=== PATIENT | female | born 1980 | race Caucasian/White ===

== ENCOUNTER → 2020-09-07 17:13 | Outpatient (CLI) | payer OTHER, SELFPAY ==
--- NOTE | ~2020-09-07 | MM_ITS ---
EXAMINATION: MM screening [facility] BI w davon HISTORY: Screening TECHNIQUE: Craniocaudal and mediolateral oblique 3-D tomosynthesis images were obtained and synthetic 2-D images were generated. CAD analysis was submitted and interpreted. COMPARISON: No prior mammogram is available for comparison at this institution. BREAST PARENCHYMAL COMPOSITION: The breasts are heterogeneously dense, which may obscure small masses . FINDINGS: There is no evidence of suspicious mass, calcification, or architectural distortion to sugg est malignancy in either breast. There has been no suspicious interval change. IMPRESSION: 1. No mammographic evidence of malignancy. 2. Recommend routine screening mammography in one year. BI-RADS Category 1: Negative Reviewed, dictated and finalized at location A. ERING KILN TENDER
== END ==
PROVIDERS: PCP Physician Assistant; Visit Provider Nurse Practitioner
DX: Z12.31 Encounter for screening mammogram for malignant neoplasm of breast (principal)
CPT/HCPCS: 77063; 77067

== ENCOUNTER → 2023-04-25 10:49 | Outpatient (CLI) | payer OTHER, SELFPAY ==
--- NOTE | ~2023-04-25 | US_ITS ---
Limited Abdominal Sonogram: Real-time sonographic imaging of the right upper quadrant was performed. Clinical History: Family history of pancreatic cancer Findings: The liver appears normal with no evidence of mass lesion or bile duct dilatation. Main por gregory vein demonstrates normal direction of flow. The gallbladder is well distended, and appears normal with no evidence of gallstone or wall thickening. The common bile duct measures 2 mm. The visualize d pancreas, aorta, and IVC are unremarkable. Impression: No significant abnormality seen. Reviewed, dictated and finalized at location M. Impression: No significant abnormality seen.
== END ==
PROVIDERS: PCP Physician Assistant; Visit Provider Physician Assistant
DX: Z80.0 Family history of malignant neoplasm of digestive organs (principal)
CPT/HCPCS: 76705

== ENCOUNTER → 2023-06-06 11:31 | Outpatient (CLI) | payer OTHER, SELFPAY ==
--- NOTE | ~2023-06-06 | MM_ITS ---
EXAMINATION: MM screening whitney BI w davon HISTORY: Screening mammogram TECHNIQUE: Craniocaudal and mediolateral oblique 3-D tomosynthesis images were obtained and synthetic 2-D images were generated. Bilateral rotated lateral CC views. CAD analysis was submitted and interp reted. COMPARISON: 09/07/2020 bilateral screening mammogram BREAST PARENCHYMAL COMPOSITION: The breasts are heterogeneously dense, which may obscure small masses . FINDINGS: There is no evidence of suspicious mass, calcification, or architectural distortion to sugg est malignancy in either breast. There has been no suspicious interval change. IMPRESSION: 1. No mammographic evidence of malignancy. 2. Recommend routine screening mammography in one year. BI-RADS Category 1: Negative Reviewed, dictated and finalized at location A.
== END ==
PROVIDERS: PCP Physician Assistant; Visit Provider Advanced Practice Midwife
DX: Z12.31 Encounter for screening mammogram for malignant neoplasm of breast (principal)
CPT/HCPCS: 77063; 77067

== ENCOUNTER 2024-11-23 11:04 | Outpatient (CLI) | payer OTHER, SELFPAY ==
[2024-11-23 11:28] LABS: Basophils Percent Auto 0.8 % (0.2-1.2); Eosinophils Absolute Auto 0.1 K/mm3 (0-0.3); Eosinophils Percent Auto 3.7 % (0-4.4); Hematocrit 38.7 % (37.0-47.0); Hemoglobin 13.1 g/dL (12.0-15.0); Immature Granulocyte Absolute 0.01 K/mm3 (0.00-0.031); Immature Granulocyte Percent A 0.3 % (0-0.5); Lymphocytes Absolute Auto 1.32 K/mm3 (0.9-3.2); Lymphocytes Percent Auto 34.6 % (18.3-44.2); Mean Corpuscular HGB Conc 33.9 g/dl (32-36); Mean Corpuscular Hemoglobin 34.7 pg (26-34); Mean Corpuscular Volume 102.4 fl (80-100); Mean Platelet Volume 8.9 fl (7.4-10.4); Monocytes Absolute Auto 0.4 K/mm3 (0.1-0.6); Monocytes Percent Auto 10.2 % (2.6-8.5); Neutrophils Absolute Auto 1.9 K/mm3 (1.3-6.7); Neutrophils Percent Auto 50.4 % (45.5-73.1); Platelet Count Result 200 k/mm3 (150-375); Red Blood Count 3.78 M/mm3 (4.2-5.4); Red Cell Distribution Width 11.8 % (11.5-14.5); White Blood Count 3.8 K/mm3 (4.5-10.0)
--- OUTSIDE RECORDS SUMMARY | 2024-11-23 12:51 | XMS_ITS | Patient Health Record ---
Author Organization [facility] Address [address] [place] [address] Support Name Relationship Address Phone Pam Sue Guarantor Unknown [phone] Allergies No Known Allergies Reason For Referral No Information Medications Medication SIG (Take, Route, Frequency, Duration) Notes Start Date End Date Status Julia-D Allergy & Congestion 180-240 MG 1 Two Times A Day Oral 05/28/2008 Active Flonase Allergy Relief 50 MCG/ACT 2 sprays each nostril q day Nasal 05/28/2008 Active Ortho-Novum (28) as directed *Reorder from [facility]orrow[facility] for eRx and Interaction Alerts* 08/11/2008 Active Differin 0.1 % apply q day External 02/13/2007 Active Calcium 600 High Potency 600 MG 1 Two Times A Day Oral 02/13/2006 Active Clindamycin Phosphate 1 % Apply BID External 02/13/2007 Active Mounika 28 3-0.03 MG As Directed Oral 12/05/2005 Active Diflucan 150 MG 1 Every Morning Oral 02/19/2006 Active Plan Of Treatment No Information Insurance Providers Payer Name Payer Address Payer Phone Subscriber Number Group Number Insured Name Patient Relationship to Insured Coverage Start Date Coverage End Date [facility] [address] [place] [address] [id number] Pam Sue Self - patient is the insured 1
--- OUTSIDE RECORDS SUMMARY | 2024-11-23 12:51 | XMS_ITS | Clinical Summary ---
Author Organization [facility] [address]22 Address [address] [place] [address] Phone Care Team Providers Care Assembler [employer] Name Role Phone John Jansen MD Primary Care Provider [phone] Allergies No known active allergies Medications spironolactone (ALDACTONE) 100 mg tablet Take 100 mg by mouth daily. Active Active Problems No known active problems Encounters Date Type Department Care Team Description 11/23/2024 10:30 AM COTTON SAMPLER Office Visit [facility] Oncology and Hematology - [address] [place] [address] Kwaku Sidhu MD Leukopenia, unspecified type (Primary Dx); Chronic anemia from Last 3 Months Family History Medical History Relation Name Comments No Known Problems Brother No Known Problems Child 1 No Known Problems Child 2 No Known Problems Child 3 No Known Problems Father No Known Problems Mother No Known Problems Sister 1 No Known Problems Sister 2 No Known Problems Sister 3 Relation Name Status Comments Brother Child 1 Alive Child 2 Alive Child 3 Alive Father Alive Mother Alive Sister 1 Alive Sister 2 Alive Sister 3 Alive Social History Tobacco Use Types Packs/Day Years Used Date Smoking Tobacco: Never Smokeless Tobacco: Never Alcohol Use Standard Drinks/Week Comments Yes 0 (1 standard drink = 0.6 oz pur e alcohol) Occasionally Comments Unknown Sex and Gender Information Value Date Recorded Sex Assigned at Not on file Legal Sex Female 6:10 AM COTTON SAMPLER Gender Identity Not on file Sexual Orientation Not on file Last Filed Vital Signs Vital Sign Reading Time Taken Comments Blood Pressure 100/61 11/23/2024 10:10 AM COTTON SAMPLER Pulse 79 11/23/2024 10:10 AM COTTON SAMPLER Temperature 36.6 C (97.9 F) 11/23/2024 10:10 AM COTTON SAMPLER Respiratory Rate 17 11/23/2024 10:1 0 AM COTTON SAMPLER Oxygen Saturation 98% 11/23/2024 10: 10 AM COTTON SAMPLER Inhaled Oxygen Concentration - - Weight 66.6 kg (146 lb 12.8 oz) 025 10:10 AM COTTON SAMPLER Height 177.8 cm (5' 10 ) 11/23/2024 10: 10 AM COTTON SAMPLER Body Mass Index 21.06 11/23/2024 10:10 AM COTTON SAMPLER Plan of Treatment Upcoming Encounters Date Type Department Care Team (Late st Contact Info) Description 12/14/2024 1:00 PM CDT Office Visit [facility] Oncology and Hematology [facility] [address] [facility] [address] [place] [address] Kwaku Sidhu MD [address] [facility] [address] [place] [address] Health Maintenance Due Date Last Done Comments DTAP/TDAP/TD VACCINES (1 - Tdap) 1998 HEPATITIS B VACCINES (1 of 3 - 19+ 3-dose series) 1998 CERVICAL CANCER SCREENING 2009 BREAST CANCER SCREENING 2019 COLORECTAL SCREENING 01/04/2024 Colorectal Cancer Screening 01/04/2024 FIT-DNA Q 3 years 01/04/2024 FIT/FOBT Q 1 year 01/04/2024 Flex Sig/CT Colonography Q 5 years 01/04/2024 INFLUENZA VACCINE (#1) 2024 Preventative Visit- Commercial 09/30/2024 HPV VACCINES Aged Out No longer eligi ble based on patient's age to complete this topic Insurance [facility] [id number] Member Subscriber Plan / Payer (Ef fective 2022-Present) Name:ADITYA SUE Relation to Subscriber:Spouse Name:Mohamud Sue Date of :1976 (Home) [phone] (Work) Address: [address] [place] [id number] Payer ID:[id number] (NAIC) Type:HMO Address: [facility] [address] [place] [address] Care Teams Assembler [employer] Relationship Specialty Start Date End Date John Jansen MD [address] [place] [id number] PCP - General Family Practice 05/09/12
--- OUTSIDE RECORDS SUMMARY | 2024-11-23 12:51 | XMS_ITS | Data Portability ---
Author Organization [facility] Address [address] [facility] [facility] [place] [address] Care Team Providers Care Director Of Sports Performance Name Role Phone CHEIKH PICKETT Primary Care Provider Unavailab le Assessment No assessment recorded. Plan of Treatment Reminders Order Date Submit Date Provider Last Modified By Organization Details Last Modified Time Details Appointments ANNUAL 30 2024 09:00A M ELISHA Mccallum Not available Not available Not available Lab TSH + free T4, serum 2023 024 TROY [facility], [address], [place], [address], 08/18/2024 10:14:46 lipid panel, serum 2023 024 TROY Nguyen, [address], [place], [address], 08/18/2024 10:14:44 CMP, serum or plasma 2023 024 ELSA Nguyen, [address], [place], [address], 08/18/2024 10:14:47 CBC w/ auto diff 2023 024 TROY Kai, [address], [place], [address], 08/18/2024 10:14:49 noninvasi ve colorecta l cancer DNA + occult blood screening , QL, stool 2023 024 TROY [facility] (Cologuard Orders Only), [address], [address], [place], [address], 07/09/2024 21:56:55 HbA1c (hemoglob in A1c), blood 2023 024 TROY [facility], [address], [place], [address], 08/18/2024 10:14:48 Referral None recorded. Procedures None recorded. Surgeries None recorded. Imaging MAMMO, screening , digital, bilateral [facility] [address], [place], [address], 10/07/2024 12:31:25 Medication Orders None recorded. Patient TargetsNo targets recorded. Patient InstructionsNo instructions recorded. Reason for Referral None Reported. Results Created Date Observation Date Name Description Value Unit Range Abnormal Flag Note LastModifiedBy Organization Detail LastModifiedTime 07/06/20 24 07/06/2024 COLOG UARD cologuard result reportable NEGATI VE negati ve normal NEGAT FRED TEST RESUL T. A negat fred Colog uard resul t indic ates a low likel ihood that a color ectal cance r (CRC) or advan ezequiel adeno ma (estrellita omato us polyp s with more advan ezequiel pre-m align ant featu res) is prese nt. The chanc e that a perso n with a negat fred Colog uard test has a color ectal cance r is less than 1 in 1500 (nega tive predi ctive value >99.9 %) or has an advan ezequiel adeno ma is less than 5.3% (nega tive predi ctive value 94.7% ). These data are based on a prosp ectiv e cross -sect ional study of 00 0 indiv idual s at [facility] risk for color ectal cance r who were scree artemio with both Colog uard and colon oscop y. (Saw Thorne et al, N Engl J Med 2014; 370(1 4):12 86-12 97) The rosio l value (refe rence range ) for this assay is negat fred. COLOG UARD RE-SC REEGABRIEL [place] RECOM MENDA TION: Perio dic color ectal cance r scree andre is an impor tant part of preve ntive healt hcare for asymp tomat ic indiv idual s at [facility] risk for color ectal cance r. Follo wing a negat fred Colog uard resul t, the Ameri can Cance r Socie ty and U.S. Multi -Soci ety Task Force scree andre guide lines recom mend a Colog uard re-sc reeni ng inter marco of 3 years . Refer ences : Ameri can Cance r Socie ty Guide line for Color ectal Cance r Scree andre: https ://niranjan w.can cer.o rg/ca ncer/ colon -rect al-ca ncer/ detec tion- diagn osis- stagi ng/ac s-rec ommen datio ns.ht ml.; Ramirez DK, Dwight ivy CR, Agustín avina JK, Color ectal Cance r Scree andre: Recom menda tions for Physi cians and Patie nts from the U.S. Multi -Soci ety Task Force on Color ectal Cance r Scree andre , Am Ivy buenrostro y 2017; 112:1 016-1 030. TEST DESCR IPTIO N: [place] site algor ithmi c srinivas sis of stool DNA-b iomar kers with hemog lobin immun oassa y. Quant itati ve value s of indiv idual bioma rkers are not repor table and are not assoc iated with indiv idual bioma rker resul t refer ence range s. Colog uard is inten ded for color ectal cance r scree andre of adult s of eithe r sex, 45 years or older , who are at [facility] for color ectal cance r (CRC) . Colog uard has been appro carly for use by the U.S. FDA. The perfo rmanc e of Colog uard was estab lishe d in a cross secti onal study of avera ge-ri sk adult s aged 50-84 . Colog uard perfo rmanc e in patie nts ages 45 to 49 years was estim ated by kraig-g wayne srinivas sis of near- age group s. Colon oscop ies perfo rmed for a posit fred resul t may find as the most clini tony signi fican t lesio n: color ectal cance r [4.0% ], advan ezequiel adeno ma (incl uding sessi le [place] polyp s great er than or equal to 1cm diame ter) [20%] or non- advan ezequiel adeno ma [31%] ; or no color ectal neopl raffaele [45%] . These estim ates are deriv ed from a prosp ectiv e cross -sect ional scree andre study of 0 indiv idual s at [facility] risk for color ectal cance r who were scree artemio with both Colog uard and colon oscop y. (Saw Thorne et al, N Engl J Med 2014; 370(1 4):12 86-12 97.) Colog uard may produ ce a false negat fred or false posit fred resul t (no color ectal cance r or preca ncero us polyp prese nt at colon oscop y follo w up). A negat fred Colog uard test resul t does not guara ntee the absen ce of CRC or advan ezequiel adeno ma (pre- cance r). The curre nt Colog uard scree andre inter marco is every 3 years . (Amer ican Cance r Socie ty and U.S. Multi -Soci ety Task Force ). Colog uard perfo rmanc e data in a 0 patie nt pivot al study using colon oscop y as the refer ence metho d can be acces sed at the follo wing locat ion: www.e xactl abs.c om/re sults . Addit ional descr iptio n of the Colog uard test proce ss, warni ngs and preca ution s can be found at www.c wagner maria luisa.c om. Not Available [facility] (Cologuard Orders Only) [address], [place], [address], 07/09/2024 21:56:55 08/17/20 24 08/18/2024 LIPID PANEL W/ CHOL/ HDL RATIO cholesterol, total 194 mg/dL 100-19 9 Not Available [facility] ([facility]) [address], [place], [address], 08/18/2024 10:14:44 08/17/20 24 08/18/2024 LIPID PANEL W/ CHOL/ HDL RATIO triglyceride s 46 mg/dL 0-149 Not Available [facility] ([facility]) [address], [place], [address], 08/18/2024 10:14:44 08/17/20 24 08/18/2024 LIPID PANEL W/ CHOL/ HDL RATIO HDL cholesterol 115 mg/dL >39 Not Available [facility] ([facility]) [address] [facility] [address], [place], [address], 08/18/2024 10:14:44 08/17/20 24 08/18/2024 LIPID PANEL W/ CHOL/ HDL RATIO VLDL cholesterol kassandra 9 mg/dL 5-40 Not Available [facility] ([facility]) [address], [place], [address], 08/18/2024 10:14:44 08/17/20 24 08/18/2024 LIPID PANEL W/ CHOL/ HDL RATIO LDL chol calc (rust) 70 mg/dL 0-99 Not Available [facility] ([facility]) [address] [place], [address], 08/18/2024 10:14:44 08/17/20 24 08/18/2024 LIPID PANEL W/ CHOL/ HDL RATIO T. chol/HDL ratio 1.7 ratio 0.0-4. 4 T. Chol/ HDL Ratio Men Women 1/2 Avg.R isk 3.4 3.3 Avg.R isk 5.0 4.4 2X Avg.R isk 9.6 7.1 3X Avg.R isk 23.4 11.0 Not Available [facility] ([facility]) [address], [place], [address], 08/18/2024 10:14:44 08/17/20 24 08/18/2024 TSH+F REE T4 TSH 1.980 uIU/m L 0.450- 4.500 Not Available [facility] ([facility]) [address] [place], [address], 08/18/2024 10:14:45 08/17/20 24 08/18/2024 TSH+F REE T4 T4,free(dire ct) 1.05 NG/dL 0.82-1 .77 Not Available [facility] ([facility]) [address], [place], [address], 08/18/2024 10:14:45 08/17/20 24 08/18/2024 COMP. METAB OLIC PANEL (14) glucose 97 mg/dL 70-99 Not Available [facility] ([facility]) [address] [place], [address], 08/18/2024 10:14:47 08/17/20 24 08/18/2024 COMP. METAB OLIC PANEL (14) BUN 15 mg/dL 6-24 Not Available [facility] ([facility]) [address] [place], [address], 08/18/2024 10:14:47 08/17/20 24 08/18/2024 COMP. METAB OLIC PANEL (14) creatinine 0.83 mg/dL 0.57-1 .00 Not Available [facility] ([facility]) [address] [place], [address], 08/18/2024 10:14:47 08/17/20 24 08/18/2024 COMP. METAB OLIC PANEL (14) eGFR 89 mL/mi n/1.7 3 >59 Not Available [facility] ([facility]) [address] [facility] [address], [place], [address], 08/18/2024 10:14:47 08/17/20 24 08/18/2024 COMP. METAB OLIC PANEL (14) BUN/creatini ne ratio 18 9-23 Not Available [facility] ([facility]) [address], [place], [address], 08/18/2024 10:14:47 08/17/20 24 08/18/2024 COMP. METAB OLIC PANEL (14) sodium 139 mmol/ L 134-14 4 Not Available [facility] ([facility]) [address] [facility] [address], [place], [address], 08/18/2024 10:14:47 08/17/20 24 08/18/2024 COMP. METAB OLIC PANEL (14) potassium 4.9 mmol/ L 3.5-5. 2 Not Available [facility] ([facility]) [address] [facility] [address], [place], [address], 08/18/2024 10:14:47 08/17/20 24 08/18/2024 COMP. METAB OLIC PANEL (14) chloride 103 mmol/ L 96-106 Not Available [facility] ([facility]) [address], [place], [address], 08/18/2024 10:14:47 08/17/20 24 08/18/2024 COMP. METAB OLIC PANEL (14) carbon dioxide, total 23 mmol/ L 20-29 Not Available [facility] ([facility]) [address], [place], [address], 08/18/2024 10:14:47 08/17/20 24 08/18/2024 COMP. METAB OLIC PANEL (14) calcium 8.8 mg/dL 8.7-10 .2 Not Available [facility] ([facility]) [address], [place], [address], 08/18/2024 10:14:47 08/17/20 24 08/18/2024 COMP. METAB OLIC PANEL (14) protein, total 6.5 g/dL 6.0-8. 5 Not Available [facility] ([facility]) [address], [place], [address], 08/18/2024 10:14:47 08/17/20 24 08/18/2024 COMP. METAB OLIC PANEL (14) albumin 4.2 g/dL 3.9-4. 9 Not Available [facility] ([facility]) [address] [facility] [address], [place], [address], 08/18/2024 10:14:47 08/17/20 24 08/18/2024 COMP. METAB OLIC PANEL (14) globulin, total 2.3 g/dL 1.5-4. 5 Not Available [facility] ([facility]) [address] [facility] [address], [place], [address], 08/18/2024 10:14:47 08/17/20 24 08/18/2024 COMP. METAB OLIC PANEL (14) bilirubin, total 0.4 mg/dL 0.0-1. 2 Not Available [facility] ([facility]) [address] [facility] [address], [place], [address], 08/18/2024 10:14:47 08/17/20 24 08/18/2024 COMP. METAB OLIC PANEL (14) alkaline phosphatase 67 IU/L 44-121 Not Available [facility] ([facility]) [address] [facility] [address], [place], [address], 08/18/2024 10:14:47 08/17/20 24 08/18/2024 COMP. METAB OLIC PANEL (14) AST (SGOT) 16 IU/L 0-40 Not Available [facility] ([facility]) [address], [place], [address], 08/18/2024 10:14:47 08/17/20 24 08/18/2024 COMP. METAB OLIC PANEL (14) ALT (SGPT) 11 IU/L 0-32 Not Available [facility] ([facility]) [address] [place], [address], 08/18/2024 10:14:47 08/17/20 24 08/18/2024 HEMOG LOBIN A1C hemoglobin A1C 5.1 % 4.8-5. 6 Predi abete s: 5.7 - 6.4 Diabe angeles: >6.4 Glyce benjamín contr ol for adult s with diabe angeles: <7.0 Not Available [facility] ([facility]) [address] [place], [address], 08/18/2024 10:14:48 08/17/20 24 08/18/2024 CBC WITH DIFFE RENTI AL/PL ATELE T WBC 2.9 x10e3 /uL 3.4-10 .8 below low normal Not Available [facility] ([facility]) [address] [place], [address], 08/18/2024 10:14:49 08/17/20 24 08/18/2024 CBC WITH DIFFE RENTI AL/PL ATELE T RBC 3.62 x10e6 /uL 3.77-5 .28 below low normal Not Available [facility] ([facility]) [address] [place], [address], 08/18/2024 10:14:49 08/17/20 24 08/18/2024 CBC WITH DIFFE RENTI AL/PL ATELE T hemoglobin 12.5 g/dL 11.1-1 5.9 Not Available [facility] ([facility]) [address] [place], [address], 08/18/2024 10:14:49 08/17/20 24 08/18/2024 CBC WITH DIFFE RENTI AL/PL ATELE T hematocrit 37.8 % 34.0-4 6.6 Not Available [facility] ([facility]) [address] [facility] [address], [place], [address], 08/18/2024 10:14:49 08/17/20 24 08/18/2024 CBC WITH DIFFE RENTI AL/PL ATELE T MCV 104 fL 79-97 above high normal Not Available [facility] ([facility]) [address] [facility] [address], [place], [address], 08/18/2024 10:14:49 08/17/20 24 08/18/2024 CBC WITH DIFFE RENTI AL/PL ATELE T MCH 34.5 pg 26.6-3 3.0 above high normal Not Available [facility] ([facility]) [address] [place], [address], 08/18/2024 10:14:49 08/17/20 24 08/18/2024 CBC WITH DIFFE RENTI AL/PL ATELE T MCHC 33.1 g/dL 31.5-3 5.7 Not Available [facility] ([facility]) [address] [place], [address], 08/18/2024 10:14:49 08/17/20 24 08/18/2024 CBC WITH DIFFE RENTI AL/PL ATELE T RDW 11.2 % 11.7-1 5.4 below low normal Not Available [facility] ([facility]) [address] [place], [address], 08/18/2024 10:14:49 08/17/20 24 08/18/2024 CBC WITH DIFFE RENTI AL/PL ATELE T platelets 195 x10e3 /uL 150-45 0 Not Available [facility] ([facility]) [address] [place], [address], 08/18/2024 10:14:49 08/17/20 24 08/18/2024 CBC WITH DIFFE RENTI AL/PL ATELE T neutrophils 39 % notest ab. Not Available [facility] ([facility]) [address] [place], [address], 08/18/2024 10:14:49 08/17/20 24 08/18/2024 CBC WITH DIFFE RENTI AL/PL ATELE T lymphs 48 % notest ab. Not Available [facility] ([facility]) [address] [facility] [address], [place], [address], 08/18/2024 10:14:49 08/17/20 24 08/18/2024 CBC WITH DIFFE RENTI AL/PL ATELE T monocytes 10 % notest ab. Not Available [facility] ([facility]) [address] [facility] [address], [place], [address], 08/18/2024 10:14:49 08/17/20 24 08/18/2024 CBC WITH DIFFE RENTI AL/PL ATELE T eos 2 % notest ab. Not Available [facility] ([facility]) [address] [facility] [address], [place], [address], 08/18/2024 10:14:49 08/17/20 24 08/18/2024 CBC WITH DIFFE RENTI AL/PL ATELE T basos 1 % notest ab. Not Available [facility] ([facility]) [address] [facility] [address], [place], [address], 08/18/2024 10:14:49 08/17/20 24 08/18/2024 CBC WITH DIFFE RENTI AL/PL ATELE T neutrophils (absolute) 1.1 x10e3 /uL 1.4-7. 0 below low normal Not Available [facility] ([facility]) [address] [place], [address], 08/18/2024 10:14:49 08/17/20 24 08/18/2024 CBC WITH DIFFE RENTI AL/PL ATELE T lymphs (absolute) 1.4 x10e3 /uL 0.7-3. 1 Not Available [facility] ([facility]) [address] [place], [address], 08/18/2024 10:14:49 08/17/20 24 08/18/2024 CBC WITH DIFFE RENTI AL/PL ATELE T monocytes(ab solute) 0.3 x10e3 /uL 0.1-0. 9 Not Available [facility] ([facility]) [address] [facility] [address], [place], [address], 08/18/2024 10:14:49 08/17/20 24 08/18/2024 CBC WITH DIFFE RENTI AL/PL ATELE T eos (absolute) 0.1 x10e3 /uL 0.0-0. 4 Not Available [facility] ([facility]) [address] [place], [address], 08/18/2024 10:14:49 08/17/20 24 08/18/2024 CBC WITH DIFFE RENTI AL/PL ATELE T baso (absolute) 0.0 x10e3 /uL 0.0-0. 2 Not Available [facility] ([facility]) [address], [place], [address], 08/18/2024 10:14:49 08/17/20 24 08/18/2024 CBC WITH DIFFE RENTI AL/PL ATELE T immature granulocytes 0 % notest ab. Not Available [facility] ([facility]) [address], [place], [address], 08/18/2024 10:14:49 08/17/20 24 08/18/2024 CBC WITH DIFFE RENTI AL/PL ATELE T immature grans (abs) 0.0 x10e3 /uL 0.0-0. 1 Not Available [facility] ([facility]) [address] [place], [address], 08/18/2024 10:14:49 Result Notes None recorded. Problems Name Problem SNOMED Code Status Onset Date Resolution Date Notes Provider Name and Address Organization Details Recorded Time Body mass index 20-24 - normal 806205211 Active 024 GURJIT Jeong, [facility] 06/11/2024 09:47:15 Problem Notes None recorded. Medical Equipment None Reported. Allergies No known drug allergies Medications Name Sig Start Date Stop Date Status Note LastModified by Organization Details LastModified Time ketoconazol e 2 % shampoo WASH SCALP THREE TIMES A WEEK active Not Available Not Available No t Available spironolact one 100 mg tablet TAKE 1 TABLET BY MOUTH DAILY active face- derm Not Available Not Available Not Available oseltamivir 75 mg capsule TAKE 1 CAPSULE BY MOUTH TWICE DAILY FOR 5 DAYS 06/11 completed Not Available Not Available Not Available ondansetron 4 mg disintegrat ing tablet DISSOLVE 1 TABLET ON THE TONGUE EVERY 6 HOURS NEEDED 06/11 completed Not Available Not Available Not Available Mirena active Not Available Not Availa ble Not Available Vitals Date Recorded Body height Respiratory rate Body mass index (BMI) Body weight Oxygen saturation Oxygen saturation in Arterial blood by Pulse oximetry Heart rate Systolic blood pressure Diastolic blood pressure Provider Name and Address Organization Details Last Updated DateTime 176.28 cm 18 /min 20.4 kg/m2 15537.9 3 g 98 % 98 % 63 /min 108 mm[Hg] 78 mm[Hg] Meme Zambrano MA [facility] 09:48:43 Date Recorded Systolic blood pressure Diastolic blood pressure Provider Name and Address Organization Details Last Updated DateTime 06/11/2024 110 mm[Hg] 80 mm[Hg] ELISHA Mccallum Attn: Accounting,[address] [place], [address], [facility] 06/11/2024 10:09:46 Social History Question Answer Notes LastModified by Organizat ion Details LastModified Time Tobacco Smoking Status Never Smoker GURJIT Jeong, [facility] 06/11/2024 09:46:07 Do You Have An Advance Directive? Yes Information not available 06/11/2024 What Is Your Level Of Alcohol Consumption? Occasional Information not available 06/11/2024 Are You Blind Or Do You Have Difficulty Seeing? No Contacts Information not available 06/11/2024 What Is Your Level Of Caffeine Consumption? Occasional Coffee Information not available 06/11/2024 In The 14 Days Before Symptom Onset, Have You Had Close Contact With A Laboratory-confir med COVID-19 While That Case Was Ill? No Information not available 06/11/2024 In The 14 Days Before Symptom Onset, Have You Had Close Contact With A Person Who Is Under Investigation For COVID-19 While That Person Was Ill? No Information not available 06/11/2024 Have You Been To An Area Known To Be High Risk For COVID-19? No Information not available 06/11/2024 Are You Deaf Or Do You Have Serious Difficulty Hearing? No Information not available 06/11/2024 What Type Of Diet Are You Following? REGULAR Information not available 06/11/2024 Are There Any Guns Present In Your Home? No Information not available 06/11/2024 What Was The Date Of Your Most Recent Tobacco Screening? 06/11/2024 Information not available 06/11/2024 What Is Your Relationship Status? Information not available 06/11/2024 Do You Use Your Seat Belt Or Car Seat Routinely? Yes Information not available 06/11/2024 Do You Have Smoke And Carbon Monoxide Detectors In Your Home? Yes Information not available 06/11/2024 Do You Use Any Illicit Or Recreational Drugs? No Information not available 06/11/2024 Do You Use Sunscreen Routinely? Yes Information not available 06/11/2024 Has Tobacco Cessation Counseling Been Provided? No Information not available 06/11/2024 Do You Or Have You Ever Used Any Other Forms Of Tobacco Or Nicotine? No Information not available 06/11/2024 Sex: Female Functional Status Question Answer Note LastModified by Organizat ion Details LastModified Time Are you able to care for yourself? Yes Information not available 06/11/2024 What is your exercise level? Occasional 3x a week Information not available 06/11/2024 Mental Status None recorded. Family History Relationship Description Onset Age of this Age Resolved Age Notes LastModified by Organization Details LastModified Time Mother Asthma tcarterma Not available 06/11/2024 09:55:36 Mother Heart disease tcarterma Not available 2023 09:55:41 Brother Asthma tcarterma Not available 06/11/2024 09:55:36 Notes:Dna sister- pancreatic cancer Medical History Condition Response Coronary Artery Disease N Other N Atrial Fibrillation N High Blood Pressure N Depression N COPD N Blood Clots N Anxiety Disorder N Muscle, Joint, or Bone Problems N Acid Reflux (GERD) N Cancer N Stroke N High Cholesterol N Liver Disease N Headaches N Kidney or Bladder Problems N Thyroid Problems N GI Problems N Have you had a mammogram in the last yea r? N Skin Problems N Anemia N Heart Attack ([place]) N Diabetes N Seizures/Epilepsy N Have you had a colonoscopy in the last 1 0 years? N Asthma N Allergies N Have you had a PSA blood test in the las t year? N Hepatitis N Heart Failure N Osteoporosis N Past Encounters Encounter ID Performer Location Encounter Start Date Encounter Closed Date Diagnosis/Indication Diagnosis SNOMED-CT Code Diagnosis ICD10 Code Diagnosis Note [id number] ELISHA Mccallum [facility] [address] [place] [address] 06/11/2024 09:32:22 06/11/2024 10:53:45 Body mass index 20-24 - normal 350007638 Z68.20 BMI is 20.4 Adult heal th examination 492406277 Z00.00 Annual wellness exam completed with fasting labs ordered. Cholesterol screening 27 0183809 Z13.220 Fasting lipid panel is due Diabetes m ellitus screening 543952254 Z13.1 Annual A1c screening ordered Thyroid di sorder screening 906266775 Z13.29 Routine thyroid testing ordered Screening mammography 24 182978 Z12.31 Annual mammogram is due Screening for malignant neoplasm of colon 076142020 Z12.11 Patient opts for Cologuard screening method Health Concerns Section Related Observation LastModified by Organization Detai ls LastModified Time None Recorded Concern Status LastModified by Organization Details LastModified Time None Recorded Advance Directives Directive Y: Payers Encounter Date Sequence Insurance Name Policy Number Policy Peña Covered Member ID Peña Member ID Guarantor Name 06/11/2024 1 [facility] Mohamud Sue [id number] Pam Sue Notes Date Note Type Note Provider Name and Address Organization Details Recorded Time 06/11/2024 text/html Patient is here for annual wellness exam and routine labs. She has no new complaints or concerns. ELISHA Mccallum Attn: Accounting,[address] [facility], [place], [address], [place] [facility] 06/28/2024 16:19:15
--- OUTSIDE RECORDS SUMMARY | 2024-11-23 12:51 | XMS_ITS | Data Portability ---
Author Organization [facility] [employer], Main Office Address [address] [place] [address] Assessment No assessment recorded. Plan of Treatment Reminders Order Date Submit Date Provider Last Modified By Organization Details Last Modified Time Details Appointments None recorded. Lab lipid panel, serum 2022 023 [place] [facility] [address], [place], [address], 3 09:11:57 CBC w/ auto diff 2022 023 [email or web address] 4 [facility], [address], [place], [address], 3 15:23:32 TSH + free T4, serum [address] [facility], [address], [place], [address], 3 09:11:57 CMP, serum or plasma 2022 023 [place] [facility] [address], [place], [address], 3 09:11:57 vitamin B12 + folate, serum or blood 2022 023 [email or web address] 4 [facility], [address], [place], [address], 3 15:23:33 HbA1c (hemoglobin A1c), blood 2022 023 [email or web address] 4 [facility], [address], [place], [address], 3 15:23:32 Referral None recorded. Procedures None recorded. Surgeries None recorded. Imaging MAMMO, screening, bilateral 2022 023 [place] Not available 14:12:32 US, abdomen 2022 023 [facility], [address], [place], [address], 13:48:41 Medication Orders ondansetron 4 mg disintegrat ing tablet 2022 023 [place] [id number], [address], [place], [place], [id number], 3 10:17:11 Patient TargetsNo targets recorded. Patient InstructionsNo instructions recorded. Reason for Referral None Reported. Results Created Date Observation Date Name Description Value Unit Range Abnormal Flag Note LastModifiedBy Organization Detail LastModifiedTime 03/01/2003/02/2022 HEMOG LOBIN A1C hemoglobin A1C 5.0 % 4.8-5. 6 Predi abete s: 5.7 - 6.4 Diabe angeles: >6.4 Glyce benjamín contr ol for adult s with diabe angeles: <7.0 Not Available [facility] ([facility]) [address] [facility], [place], [address], 03/04/2022 03:06:32 03/01/20 22 03/02/2022 VITAM IN B12 AND FOLAT E vitamin B12 509 pg/mL 232-12 45 Not Available [facility] ([facility]) [address] [facility], [place], [address], 03/04/2022 03:06:31 03/01/20 22 03/02/2022 VITAM IN B12 AND FOLAT E folate (folic acid), serum 18.2 NG/mL >3.0 A serum folat e franci ntrat ion of less than 3.1 ng/mL is consi dered to repre sent clini kassandra defic iency . Not Available [facility] ([facility]) [address] [facility], [place], [address], 03/04/2022 03:06:31 03/01/20 22 03/02/2022 LIPID PANEL W/ CHOL/ HDL RATIO cholesterol, total 207 mg/dL 100-19 9 above high normal Not Available [facility] ([facility]) [address] [facility], [place], [address], 03/04/2022 03:06:31 03/01/20 22 03/02/2022 LIPID PANEL W/ CHOL/ HDL RATIO triglyceride s 54 mg/dL 0-149 Not Available [facility] ([facility]) [address] [facility], [place], [address], 03/04/2022 03:06:31 03/01/20 22 03/02/2022 LIPID PANEL W/ CHOL/ HDL RATIO HDL cholesterol 98 mg/dL >39 Not Available [facility] ([facility]) [address] [facility], [place], [address], 03/04/2022 03:06:31 03/01/20 22 03/02/2022 LIPID PANEL W/ CHOL/ HDL RATIO VLDL cholesterol kassandra 10 mg/dL 5-40 Not Available [facility] ([facility]) [address] [facility], [place], [address], 03/04/2022 03:06:31 03/01/20 22 03/02/2022 LIPID PANEL W/ CHOL/ HDL RATIO LDL chol calc ([facility]) 99 mg/dL 0-99 Not Available [facility] ([facility]) [address] [facility] [place], [address], 03/04/2022 03:06:31 03/01/20 22 03/02/2022 LIPID PANEL W/ CHOL/ HDL RATIO comment: medical social worker Not Available [facility] ([facility]) [address], [place], [address], 03/04/2022 03:06:31 03/01/20 22 03/02/2022 LIPID PANEL W/ CHOL/ HDL RATIO T. chol/HDL ratio 2.1 ratio 0.0-4. 4 T. Chol/ HDL Ratio Men Women 1/2 Avg.R isk 3.4 3.3 Avg.R isk 5.0 4.4 2X Avg.R isk 9.6 7.1 3X Avg.R isk 23.4 11.0 Not Available [facility] ([facility]) [address] [facility], [place], [address], 03/04/2022 03:06:31 03/01/20 22 03/02/2022 UA WITH CULTU RE REFLE X specific gravity 1.011 1.005- 1.030 Not Available [facility] ([facility]) [address] [place], [address], 03/04/2022 03:06:30 03/01/20 22 03/02/2022 UA WITH CULTU RE REFLE X pH 6.0 5.0-7. 5 Not Available [facility] ([facility]) [address] [facility], [place], [address], 03/04/2022 03:06:30 03/01/20 22 03/02/2022 UA WITH CULTU RE REFLE X urine-color yellow yellow Not Available [facility] ([facility]) [address] [place], [address], 03/04/2022 03:06:30 03/01/20 22 03/02/2022 UA WITH CULTU RE REFLE X appearance clear clear Not Available [facility] ([facility]) [address] [place], [address], 03/04/2022 03:06:30 03/01/20 22 03/02/2022 UA WITH CULTU RE REFLE X WBC esterase 1+ negati ve abnormal Not Available [facility] ([facility]) [address] [facility], [place], [address], 03/04/2022 03:06:30 03/01/20 22 03/02/2022 UA WITH CULTU RE REFLE X protein negati ve negati ve/tra ce Not Available [facility] ([facility]) [address] [facility], [place], [address], 03/04/2022 03:06:30 03/01/20 22 03/02/2022 UA WITH CULTU RE REFLE X glucose negati ve negati ve Not Available [facility] ([facility]) [address] [facility], [place], [address], 03/04/2022 03:06:30 03/01/20 22 03/02/2022 UA WITH CULTU RE REFLE X ketones trace negati ve abnormal Not Available [facility] ([facility]) [address] [facility], [place], [address], 03/04/2022 03:06:30 03/01/20 22 03/02/2022 UA WITH CULTU RE REFLE X occult blood negati ve negati ve Not Available [facility] ([facility]) [address] [facility], [place], [address], 03/04/2022 03:06:30 03/01/20 22 03/02/2022 UA WITH CULTU RE REFLE X bilirubin negati ve negati ve Not Available [facility] ([facility]) [address] [place], [address], 03/04/2022 03:06:30 03/01/20 22 03/02/2022 UA WITH CULTU RE REFLE X urobilinogen ,semi-qn 0.2 mg/dL 0.2-1. 0 Not Available [facility] ([facility]) [address] [place], [address], 03/04/2022 03:06:30 03/01/20 22 03/02/2022 UA WITH CULTU RE REFLE X nitrite, urine negati ve negati ve Not Available [facility] ([facility]) [address] [facility], [place], [address], 03/04/2022 03:06:30 03/01/20 22 03/02/2022 UA WITH CULTU RE REFLE X microscopic examination see below: Micro scopi c was indic ated and was perfo rmed. Not Available [facility] ([facility]) [address] [facility], [place], [address], 03/04/2022 03:06:30 03/01/20 22 03/02/2022 UA WITH CULTU RE REFLE X WBC 0-5 /hpf 0 - 5 Not Available [facility] ([facility]) [address], [place], [address], 03/04/2022 03:06:30 03/01/20 22 03/02/2022 UA WITH CULTU RE REFLE X RBC 0-2 /hpf 0 - 2 Not Available [facility] ([facility]) [address] [facility], [place], [address], 03/04/2022 03:06:30 03/01/20 22 03/02/2022 UA WITH CULTU RE REFLE X epithelial cells (non renal) 0-10 /hpf 0 - 10 Not Available [facility] ([facility]) [address] [facility], [place], [address], 03/04/2022 03:06:30 03/01/20 22 03/02/2022 UA WITH CULTU RE REFLE X epithelial cells (renal) medical social worker Not Available [facility] ([facility]) [address] [facility], [place], [address], 03/04/2022 03:06:30 03/01/20 22 03/02/2022 UA WITH CULTU RE REFLE X casts none seen /lpf none seen Not Available [facility] ([facility]) [address], [place], [address], 03/04/2022 03:06:30 03/01/20 22 03/02/2022 UA WITH CULTU RE REFLE X cast type medical social worker Not Available [facility] ([facility]) [address], [place], [address], 03/04/2022 03:06:30 03/01/20 22 03/02/2022 UA WITH CULTU RE REFLE X crystals medical social worker Not Available [facility] ([facility]) [address], [place], [address], 03/04/2022 03:06:30 03/01/20 22 03/02/2022 UA WITH CULTU RE REFLE X crystal type medical social worker Not Available [facility]) [address] [facility], [place], [address], 03/04/2022 03:06:30 03/01/20 22 03/02/2022 UA WITH CULTU RE REFLE X mucus threads medical social worker Not Available [facility] ([facility]) [address] [facility], [place], [address], 03/04/2022 03:06:30 03/01/20 22 03/02/2022 UA WITH CULTU RE REFLE X bacteria none seen none seen/f ew Not Available [facility] ([facility]) [address] [facility], [place], [address], 03/04/2022 03:06:30 03/01/20 22 03/02/2022 UA WITH CULTU RE REFLE X yeast medical social worker Not Available [facility] ([facility]) [address], [place], [address], 03/04/2022 03:06:30 03/01/20 22 03/02/2022 UA WITH CULTU RE REFLE X trichomonas medical social worker Not Available [facility] ([facility]) [address] [facility] [address] [facility], [place], [address], 03/04/2022 03:06:30 03/01/20 22 03/02/2022 UA WITH CULTU RE REFLE X comment medical social worker Not Available [facility] ([facility]) [address] [facility], [place], [address], 03/04/2022 03:06:30 03/01/20 22 03/02/2022 UA WITH CULTU RE REFLE X urinalysis reflex commen t This speci men has refle xed to a Urine Cultu re. Not Available [facility] ([facility]) [address] [place], [address], 03/04/2022 03:06:30 03/01/20 22 03/03/2022 UA WITH CULTU RE REFLE X urine culture, routine final report Not Available [facility] ([facility]) [address] [facility], [place], [address], 03/04/2022 03:06:30 03/01/20 22 03/03/2022 UA WITH CULTU RE REFLE X result 1 commen t Mixed uroge nital iftikhar 10,00 0-25, 000 colon y formi ng units per mL Not Available [facility] ([facility]) [address] [place], [address], 03/04/2022 03:06:30 03/01/20 22 03/02/2022 CBC WITH DIFFE RENTI AL/PL ATELE T WBC 3.9 x10e3 /uL 3.4-10 .8 Not Available [facility] ([facility]) [address] [place], [address], 03/04/2022 03:06:30 03/01/20 22 03/02/2022 CBC WITH DIFFE RENTI AL/PL ATELE T RBC 3.97 x10e6 /uL 3.77-5 .28 Not Available [facility] ([facility]) [address] [place], [address], 03/04/2022 03:06:30 03/01/20 22 03/02/2022 CBC WITH DIFFE RENTI AL/PL ATELE T hemoglobin 13.2 g/dL 11.1-1 5.9 Not Available [facility] ([facility]) [address] [facility], [place], [address], 03/04/2022 03:06:30 03/01/20 22 03/02/2022 CBC WITH DIFFE RENTI AL/PL ATELE T hematocrit 39.9 % 34.0-4 6.6 Not Available [facility] ([facility]) [address] [facility], [place], [address], 03/04/2022 03:06:30 03/01/20 22 03/02/2022 CBC WITH DIFFE RENTI AL/PL ATELE T MCV 101 fL 79-97 above high normal Not Available [facility] ([facility]) [address] [place], [address], 03/04/2022 03:06:30 03/01/20 22 03/02/2022 CBC WITH DIFFE RENTI AL/PL ATELE T MCH 33.2 pg 26.6-3 3.0 above high normal Not Available [facility] ([facility]) [address] [place], [address], 03/04/2022 03:06:30 03/01/20 22 03/02/2022 CBC WITH DIFFE RENTI AL/PL ATELE T MCHC 33.1 g/dL 31.5-3 5.7 Not Available [facility] ([facility]) [address] [place], [address], 03/04/2022 03:06:30 03/01/20 22 03/02/2022 CBC WITH DIFFE RENTI AL/PL ATELE T RDW 11.7 % 11.7-1 5.4 Not Available [facility] ([facility]) [address] [facility], [place], [address], 03/04/2022 03:06:30 03/01/20 22 03/02/2022 CBC WITH DIFFE RENTI AL/PL ATELE T platelets 192 x10e3 /uL 150-45 0 Not Available [facility] ([facility]) [address] [facility], [place], [address], 03/04/2022 03:06:30 03/01/20 22 03/02/2022 CBC WITH DIFFE RENTI AL/PL ATELE T neutrophils 48 % not estab. Not Available [facility] ([facility]) [address] [facility], [place], [address], 03/04/2022 03:06:30 03/01/20 22 03/02/2022 CBC WITH DIFFE RENTI AL/PL ATELE T lymphs 39 % not estab. Not Available [facility] ([facility]) [address] [facility], [place], [address], 03/04/2022 03:06:30 03/01/20 22 03/02/2022 CBC WITH DIFFE RENTI AL/PL ATELE T monocytes 10 % not estab. Not Available [facility] ([facility]) [address] [facility], [place], [address], 03/04/2022 03:06:30 03/01/20 22 03/02/2022 CBC WITH DIFFE RENTI AL/PL ATELE T eos 2 % not estab. Not Available [facility] ([facility]) [address] [facility], [place], [address], 03/04/2022 03:06:30 03/01/20 22 03/02/2022 CBC WITH DIFFE RENTI AL/PL ATELE T basos 1 % not estab. Not Available [facility] ([facility]) [address] [facility], [place], [address], 03/04/2022 03:06:30 03/01/20 22 03/02/2022 CBC WITH DIFFE RENTI AL/PL ATELE T immature cells medical social worker Not Available [facility] ([facility]) [address] [place], [address], 03/04/2022 03:06:30 03/01/20 22 03/02/2022 CBC WITH DIFFE RENTI AL/PL ATELE T neutrophils (absolute) 1.9 x10e3 /uL 1.4-7. 0 Not Available [facility] ([facility]) [address] [place], [address], 03/04/2022 03:06:30 03/01/20 22 03/02/2022 CBC WITH DIFFE RENTI AL/PL ATELE T lymphs (absolute) 1.5 x10e3 /uL 0.7-3. 1 Not Available [facility] ([facility]) [address] [place], [address], 03/04/2022 03:06:30 03/01/20 22 03/02/2022 CBC WITH DIFFE RENTI AL/PL ATELE T monocytes(ab solute) 0.4 x10e3 /uL 0.1-0. 9 Not Available [facility] ([facility]) [address] [place], [address], 03/04/2022 03:06:30 03/01/20 22 03/02/2022 CBC WITH DIFFE RENTI AL/PL ATELE T eos (absolute) 0.1 x10e3 /uL 0.0-0. 4 Not Available [facility] ([facility]) [address] [place], [address], 03/04/2022 03:06:30 03/01/20 22 03/02/2022 CBC WITH DIFFE RENTI AL/PL ATELE T baso (absolute) 0.0 x10e3 /uL 0.0-0. 2 Not Available [facility] ([facility]) [address] [place], [address], 03/04/2022 03:06:30 03/01/20 22 03/02/2022 CBC WITH DIFFE RENTI AL/PL ATELE T immature granulocytes 0 % not estab. Not Available [facility] ([facility]) [address] [facility], [place], [address], 03/04/2022 03:06:30 03/01/20 22 03/02/2022 CBC WITH DIFFE RENTI AL/PL ATELE T immature grans (abs) 0.0 x10e3 /uL 0.0-0. 1 Not Available [facility] ([facility]) [address] [facility], [place], [address], 03/04/2022 03:06:30 03/01/20 22 03/02/2022 CBC WITH DIFFE RENTI AL/PL ATELE T NRBC medical social worker Not Available [facility] ([facility]) [address] [facility], [place], [address], 03/04/2022 03:06:30 03/01/20 22 03/02/2022 CBC WITH DIFFE RENTI AL/PL ATELE T hematology comments: medical social worker Not Available [facility] ([facility]) [address] [place], [address], 03/04/2022 03:06:30 03/01/20 22 03/02/2022 TSH+F REE T4 TSH 1.900 uIU/m L 0.450- 4.500 Not Available [facility] ([facility]) [address] [place], [address], 03/04/2022 03:06:30 03/01/20 22 03/02/2022 TSH+F REE T4 T4,free(dire ct) 1.29 NG/dL 0.82-1 .77 Not Available [facility] ([facility]) [address] [place], [address], 03/04/2022 03:06:30 03/01/20 22 03/02/2022 CMP14 +EGFR glucose 98 mg/dL 65-99 Not Available [facility] ([facility]) [address] [facility] [place], [address], 03/04/2022 03:06:29 03/01/20 22 03/02/2022 CMP14 +EGFR BUN 11 mg/dL 6-24 Not Available [facility] ([facility]) [address] [facility] [place], [address], 03/04/2022 03:06:29 03/01/20 22 03/02/2022 CMP14 +EGFR creatinine 0.77 mg/dL 0.57-1 .00 Not Available [facility] ([facility]) [address] [facility] [place], [address], 03/04/2022 03:06:29 03/01/20 22 03/02/2022 CMP14 +EGFR eGFR 98 mL/mi n/1.7 3 >59 Not Available [facility] ([facility]) [address] [facility] [place], [address], 03/04/2022 03:06:29 03/01/20 22 03/02/2022 CMP14 +EGFR BUN/creatini ne ratio 14 9-23 Not Available [facility] ([facility]) [address] [facility] [place], [address], 03/04/2022 03:06:29 03/01/20 22 03/02/2022 CMP14 +EGFR sodium 137 mmol/ L 134-14 4 Not Available [facility] ([facility]) [address] [facility] [place], [address], 03/04/2022 03:06:29 03/01/20 22 03/02/2022 CMP14 +EGFR potassium 4.2 mmol/ L 3.5-5. 2 Not Available [facility] ([facility]) [address] [place], [address], 03/04/2022 03:06:29 03/01/20 22 03/02/2022 CMP14 +EGFR chloride 100 mmol/ L 96-106 Not Available [facility] ([facility]) [address] [facility] [place], [address], 03/04/2022 03:06:29 03/01/20 22 03/02/2022 CMP14 +EGFR carbon dioxide, total 24 mmol/ L 20-29 Not Available [facility] ([facility]) [address] [facility] [place], [address], 03/04/2022 03:06:29 03/01/20 22 03/02/2022 CMP14 +EGFR calcium 9.3 mg/dL 8.7-10 .2 Not Available [facility] ([facility]) [address] [facility] [place], [address], 03/04/2022 03:06:29 03/01/20 22 03/02/2022 CMP14 +EGFR protein, total 6.9 g/dL 6.0-8. 5 Not Available [facility] ([facility]) [address] [facility] [place], [address], 03/04/2022 03:06:29 03/01/20 22 03/02/2022 CMP14 +EGFR albumin 4.6 g/dL 3.8-4. 8 Not Available [facility] ([facility]) [address] [place], [address], 03/04/2022 03:06:29 03/01/20 22 03/02/2022 CMP14 +EGFR globulin, total 2.3 g/dL 1.5-4. 5 Not Available [facility] ([facility]) [address] [place], [address], 03/04/2022 03:06:29 03/01/20 22 03/02/2022 CMP14 +EGFR A/G ratio 2.0 1.2-2. 2 Not Available [facility] ([facility]) [address] [facility], [place], [address], 03/04/2022 03:06:29 03/01/20 22 03/02/2022 CMP14 +EGFR bilirubin, total 0.7 mg/dL 0.0-1. 2 Not Available [facility] ([facility]) [address] [facility], [place], [address], 03/04/2022 03:06:29 03/01/20 22 03/02/2022 CMP14 +EGFR alkaline phosphatase 83 IU/L 44-121 Not Available [facility]) [address] [facility], [place], [address], 03/04/2022 03:06:29 03/01/20 22 03/02/2022 CMP14 +EGFR AST (SGOT) 13 IU/L 0-40 Not Available [facility] ([facility]) [address] [facility], [place], [address], 03/04/2022 03:06:29 03/01/20 22 03/02/2022 CMP14 +EGFR ALT (SGPT) 11 IU/L 0-32 Not Available [facility] ([facility]) [address] [facility], [place], [address], 03/04/2022 03:06:29 04/25/20 23 04/25/2023 US, abdom en No observ ation record ed. [email or web address] [facility] [address], [place], [address], 10/01/2023 17:00:18 06/06/20 23 06/06/2023 MAMMjessee Hernandez bilat eral No observ ation record ed. [email or web address] Not Available 2023 17:00:19 Result Notes None recorded. Problems Name Problem SNOMED Code Status Onset Date Resolution Date Notes Provider Name and Address Organization Details Recorded Time Blood chemistry outside reference range 427887267 Active Not Available [facility] 03/01/202 3 18:02:21 Problem Notes None recorded. Procedures Surgical History Date Name Laterality Status Provider Name and Address Organization Details Recorded Time [place] [facility] completed Not Available [facility] 11/28/2022 18:01:25 Imaging Results Imaging Date Name Status LastModified by Organiz ation Details LastModified Time 04/25/2023 US, abdomen completed [email or web address] [facility] [address], [place], [address], 10/01/2023 17:00:18 06/06/2023 MAMMO, screening, bilateral completed [email or web address] Information not available 10/01/2023 17:00:19 Procedure Notes None recorded. Medical Equipment None Reported. Allergies No known drug allergies Medications Name Sig Start Date Stop Date Status Note LastModified by Organization Details LastModified Time methocarb jaspal 500 mg tablet TK 1-2 TS PO QHS 02/11 completed Not Available Not Available Not Available prednison e 10 mg tablet active Not Available Not Available Not Available doxycycli ne hyclate 100 mg capsule TAKE ONE CAPSULE BY MOUTH TWICE DAILY 03/31 completed Not Available Not Available Not Available ketoconaz ole 2 % shampoo WASH SCALP THREE TIMES A WEEK active Not Available Not Available No t Available acetazola mide 125 mg tablet take 1-2 tablets PO twice daily as tolerate d for altitude sickness active Not Available Not Available No t Available fluconazo le 150 mg tablet TAKE 1 TABLET BY MOUTH NOW AND REPEAT IN 3 DAYS 04/05 completed Not Available Not Available Not Available hydrocodo ne 5 mg-acetam inophen 325 mg tablet active Not Available Not Available Not Available metronida zole 0.75 % (37.5 mg/5 gram) vaginal gel INSERT 1 APPLICAT ORFUL VAGINALL Y AT BEDTIME FOR 5 DAYS 04/05 completed Not Available Not Available Not Available spironola ctone 100 mg tablet TAKE 1 TABLET BY MOUTH DAILY active Not Available Not Available No t Available ciproflox acin 500 mg tablet one tab po bid PRN traveler s diarrhea 03/22 completed Not Available Not Available Not Available sulfameth oxazole 800 mg-trimet hoprim 160 mg tablet Take 1 tablet every 12 hours by oral route. 02/17 completed Not Available Not Available Not Available triamcino lone acetonide 0.1 % topical cream APPLY A THIN LAYER TO THE entire rash areas BY TOPICAL ROUTE 2 TIMES PER DAY active Not Available Not Available No t Available typhoid vaccine injection 02/08 completed and hep A vaccine Not Available Not Available Not Available oseltamiv ir 75 mg capsule TAKE 1 CAPSULE BY MOUTH TWICE DAILY FOR 5 DAYS active Not Available Not Available No t Available clotrimaz ole-betam ethasone 1 %-0.05 % topical cream 04/18 completed Not Available Not Available Not Available hydroxyzi ne HCl 25 mg tablet one-half to ONE Tab po tid PRN itching active Not Available Not Available No t Available triamcino lone acetonide 0.1 % lotion APPLY TO SCALP TWICE DAILY NEEDED 03/31 completed Not Available Not Available Not Available methylpre dnisolone 4 mg tablets in a dose pack FPD STARTING 03/31 active Not Available Not Available No t Available ondansetr on 4 mg disintegr ating tablet DISSOLVE 1 TABLET ON THE TONGUE EVERY 6 HOURS NEEDED active Not Available Not Available No t Available doxycycli ne hyclate 100 mg tablet Take 1 tablet twice a day by oral route with meals. active Not Available Not Available No t Available naproxen 500 mg tablet 02/11 completed Not Available Not Available Not Available Typhim Vi 25 mcg/0.5 mL intramusc ular syringe ADM 0.5ML IM UTD 02/08 completed Not Available Not Available Not Available azelaic acid 15 % topical gel APPLY TO FACE TWICE DAILY 03/31 completed Not Available Not Available Not Available nitrofura ntoin monohydra te/macroc rystals 100 mg capsule TAKE 1 CAPSULE BY MOUTH EVERY 12 HOURS 04/05 completed Not Available Not Available Not Available Havrix (PF) 1,440 NIRAJ unit/mL intramusc ular suspensio n ADM 1ML IM UTD 02/08 completed Not Available Not Available Not Available Flonase Allergy Relief takes daily for allergie s PRN 2015 active Not Available Not Available Not Avai lable triamcino lone acetonide (PF) 40 mg/mL in 0.9 % sodium chloride inj susp 2cc (80mg) injectio n IM 03/31 [place]: [id number]- Not Available Not Available Not Available Vitals Date Recorded Body mass index (BMI) Body height Oxygen saturation Oxygen saturation in Arterial blood by Pulse oximetry Heart rate Body temperature Body weight Systolic blood pressure Diastolic blood pressure Provider Name and Address Organization Details Last Updated DateTime 1 22.7 kg/m2 177.8 cm 99 % 99 % 79 /min 97.8 [degF] 43219.6 7 g 110 mm[Hg] 60 mm[Hg] Not Available [facility] 3 18:01:51 Date Recorded Body mass index (BMI) Body height Oxygen saturation Oxygen saturation in Arterial blood by Pulse oximetry Heart rate Respiratory rate Body temperature Body weight Systolic blood pressure Diastolic blood pressure Provider Name and Address Organization Details Last Updated DateTime 2 21.1 kg/m2 177.8 cm 99 % 99 % 74 /min 16 /min 97.8 [degF] 34533.3 6 g 120 mm[Hg] 72 mm[Hg] Not Available [facility] 3 18:01:51 Date Recorded Body weight Body mass index (BMI) Body height Body temperature Heart rate Oxygen saturation Oxygen saturation in Arterial blood by Pulse oximetry Systolic blood pressure Diastolic blood pressure Provider Name and Address Organization Details Last Updated DateTime 3 24587.1 5 g 20.2 kg/m2 175.26 cm 97.5 [degF] 73 /min 98 % 98 % 118 mm[Hg] 62 mm[Hg] Lacy Harvey RN [place] - [facility] [employer] 3 10:00:10 Social History Question Answer Notes LastModified by Organizat ion Details LastModified Time Tobacco Smoking Status Never Smoker Not Available [facility] 11/28/2022 18:01:19 What Is Your Level Of Alcohol Consumption? Moderate [id number] Information not available 11/28/2022 What Is Your Level Of Caffeine Consumption? Moderate [id number].[id number] 9722 Information not available 11/28/2022 How Much Tobacco Do You Chew? None [id number].[id number] 1662 Information not available 11/28/2022 In The 14 Days Before Symptom Onset, Have You Had Close Contact With A Laboratory-confir med COVID-19 While That Case Was Ill? No [id number] Information not available 11/28/2022 In The 14 Days Before Symptom Onset, Have You Had Close Contact With A Person Who Is Under Investigation For COVID-19 While That Person Was Ill? No MIGRATION.[id number] 7826 Information not available 11/28/2022 Are You Currently Employed? No [id number] Information not available 04/19/2023 What Type Of Diet Are You Following? REGULAR [id number].[id number] 1635 Information not available 11/28/2022 Which Illicit Or Recreational Drugs Have You Used? None [id number].[id number] 5359 Information not available 11/28/2022 Do You Or Have You Ever Used E-cigarettes Or Vape? Never Used Electronic Cigarettes MIGRATION.[id number] 2445 Information not available 11/28/2022 What Is Your Occupation? [employer] MIGRATION.031421 2465 Information not available 11/28/2022 Have There Been Any Changes To Your Family Or Social Situation? No MIGRATION.404744 2228 Information not available 11/28/2022 Are There Any Guns Present In Your Home? No MIGRATION.438727 0908 Information not available 11/28/2022 Do You Use Insect Repellent Routinely? No MIGRATION.[id number] 3790 Information not available 11/28/2022 Do You Use Your Seat Belt Or Car Seat Routinely? Yes MIGRATION.461798 6570 Information not available 11/28/2022 Do You Have Smoke And Carbon Monoxide Detectors In Your Home? Yes MIGRATION.093734 2770 Information not available 11/28/2022 Do You Or Have You Ever Used Smokeless Tobacco? Never Used Smokeless Tobacco MIGRATION.123232 4247 Information not available 11/28/2022 How Much Tobacco Do You Smoke? No MIGRATION.158486 2577 Information not available 11/28/2022 Do You Use Any Illicit Or Recreational Drugs? No MIGRATION.748073 3758 Information not available 11/28/2022 Do You Use Sunscreen Routinely? Yes MIGRATION.989557 3483 Information not available 11/28/2022 How Many Years Have You Smoked Tobacco? 0 MIGRATION.493411 6102 Information not available 11/28/2022 Have You Recently Traveled Abroad? No MIGRATION.615416 8673 Information not available 11/28/2022 Do You Have Any Dietary Restrictions? No MIGRATION.991796 7847 Information not available 11/28/2022 Do You Or Have You Ever Used Any Other Forms Of Tobacco Or Nicotine? No MIGRATION.157042 0707 Information not available 11/28/2022 Sex: Unknown Functional Status Question Answer Note LastModified by Organizat ion Details LastModified Time What is your exercise level? Moderate [id number] Information not available 11/28/2022 Mental Status None recorded. Family History Relationship Description Onset Age of this Age Resolved Age Notes LastModified by Organization Details LastModified Time Maternal Grandfather Malignant tumor of lung [id number] Not available 11/28/2022 18:01:25 Father No current problems or disability [id number] Not available 11/28/2022 18:01:25 Mother No current problems or disability [id number] Not available 11/28/2022 18:01:26 Medical History No medical history recorded. Gynecological History Statement/Question Response How many live births 2 Date of Last Pap 01/24/2016 Sexually Active? Y Obstetrics History GPAL:G 3 P 0 0 0 2 Type Value Living 2 Total 3 Past Encounters Encounter ID Performer Location Encounter Start Date Encounter Closed Date Diagnosis/Indication Diagnosis SNOMED-CT Code Diagnosis ICD10 Code Diagnosis Note [id number] [facility] [address] [place] [address] 03/31/2021 00:00:00 04/16/2021 00:27:22 [id number] [facility] [address] [place] [address] 04/18/2022 00:00:00 04/18/2022 09:59:07 [id number] ELISHA Mccallum [facility] [address] [place] [address] 04/22/2023 09:53:19 04/22/2023 10:20:40 Adult health examination 334655189 Z00.00 well exam completed. labs ordered. Screening mammography 24 686027 Z12.31 mammogram ordered Cholesterol screening 27 1873371 Z13.220 fasting labs due. Diabetes m ellitus screening 112369420 Z13.1 Long-term drug therapy 204801789 Z79.899 Family his tory of malignant neoplasm of pancreas 464257594 Z80.0 fam hx of pancreatic cancer in her Mother's identical twin ( her aunt). Preventive procedure 169 165035 Z29.9 Rx for zofran for upcoming trip this winter to [place]. Health Concerns Section Related Observation LastModified by Organization Detai ls LastModified Time None Recorded Concern Status LastModified by Organization Details LastModified Time None Recorded Advance Directives Directive None Recorded Payers Encounter Date Sequence Insurance Name Policy Number Policy Peña Covered Member ID Peña Member ID Guarantor Name 04/22/2023 1 [facility] [id number] Mohamud Sue [id number] Pam Sue Notes Date Note Type Note Provider Name and Address Organization Details Recorded Time 03/31/2021 text/html Generic HPI TemplateReported bypatient.Notes:Here today for her wellness exam, no complaints, doing fine. Not Available [facility] 04/16/2021 00:27:22 04/18/2022 text/html Generic HPI TemplateReported bypatient.Notes:Pt is here for a wellness. No chronic problems. No complaints today. Not Available its learning 04/18/2022 09:59:07 04/22/2023 text/html Generic HPI TemplateReported bypatient.Notes:no c/o. feeling great, working out, eating healthy, due for labs. wellness ELISHA Mccallum [address] [address], [place], [address], its learning 04/22/2023 21:39:42 OBGyn Episode No OBEpisode recorded.
--- OUTSIDE RECORDS SUMMARY | 2024-11-23 12:51 | XMS_ITS | Encounter Summary ---
Author Organization [facility] [employer] Address [address] [place] [address] Care Team Providers Care Predator Control Trapper Name Role Phone John Jansen MD Primary Care Provider [phone] Reason for Referral * Radiology Services (Routine) - Closed Specialty Diagnoses / Procedures Referred By Contac t Referred To Contact Diagnoses Leukopenia, unspecified type Procedures US ABDOMEN COMPLETE Kwaku Sidhu MD [address] [place] [address] Phone: tel: fax: [place] [address] Referral ID Status Reason Start Date Expiration Date V isits Requested Visits Authorized [id number] Closed [facility] 11/23/2024 12/24/2025 1 1 MOLDER Reason for Visit * Reason Comments Establish Care Encounter Details Date Type Department Care Team (Late st Contact Info) Description 11/23/2024 10:30 AM NEON MOLDER Office Visit [facility] [address] [place] [address] [address] [place] [address] Kwaku Sidhu MD [address] [place] [address] Leukopenia, unspecified type (Primary Dx); Chronic anemia Social History Tobacco Use Types Packs/Day Years Used Date Smoking Tobacco: Never Smokeless Tobacco: Never Alcohol Use Standard Drinks/Week Comments Yes 0 (1 standard drink = 0.6 oz pur e alcohol) Occasionally Comments Unknown Sex and Gender Information Value Date Recorded Sex Assigned at Not on file Legal Sex Female 6:10 AM NEON MOLDER Gender Identity Not on file Sexual Orientation Not on file documented as of this encounter Last Filed Vital Signs Vital Sign Reading Time Taken Comments Blood Pressure 100/61 11/23/2024 10:10 AM NEON MOLDER Pulse 79 11/23/2024 10:10 AM NEON MOLDER Temperature 36.6 C (97.9 F) 11/23/2024 10:10 AM NEON MOLDER Respiratory Rate 17 11/23/2024 10:1 0 AM NEON MOLDER Oxygen Saturation 98% 11/23/2024 10: 10 AM NEON MOLDER Inhaled Oxygen Concentration - - Weight 66.6 kg (146 lb 12.8 oz) 025 10:10 AM NEON MOLDER Height 177.8 cm (5' 10 ) 11/23/2024 10: 10 AM NEON MOLDER Body Mass Index 21.06 11/23/2024 10:10 AM NEON MOLDER documented in this encounter Progress Notes * Kwaku Sidhu MD - 11/23/2024 10:26 AM CST Hematology-oncology consult Note Requesting Physician John Jansen MD Primary Care Physician John Jansen MD Problem list There is no problem list on file for this patient. Previous TREATMENT ? Measurable Disease ? Reason for Visit Pam Sue is a 44 y.o. female who was referred for consultation for leukopenia. History of present illness This is a pleasant 44-year-old female who has been in good health has been taking Aldactone for last 2 years for skin related issues and acne referred to me for leukopenia. Patient had COVID infection in April 2024. According to patient she had bad mononucleosis infection and was admitted to the hospital for 3 weeks duration in 2005 requiring intubation. Currently she is feeling good and has occasional night sweats and hot flashes. Weight and appetite stable. Denies any bleeding and bruising. She had labs done on August 18, 2024 showed WBC of 2.9 with MCV of 104. Previously her labs in March 2023 showed WBC of 3.3 in February 2022 was 3.9 WBC. She has no new complaints. Past Medical History No past medical history on file. Surgical History No past surgical history on file. Medications Current Outpatient Medications Medication Sig Dispense Refill spironolactone (ALDACTONE) 100 mg tablet Take 100 mg by mouth daily. No current facility-administered medications for this visit. Allergies No Known Allergies Immunizations: There is no immunization history on file for this patient. Family History Family History Problem Relation Name Age of Onset No Known Problems Father No Known Problems Mother No Known Problems Brother No Known Problems Sister No Known Problems Sister No Known Problems Sister No Known Problems Child No Known Problems Child No Known Problems Child Social History Social History Tobacco Use Smoking status: Never Smokeless tobacco: Never Substance Use Topics Alcohol use: Yes Comment: Occasionally Review of Systems Constitutional: Patient did not mention fever; no night sweats; no anorexia; no weight loss; no fatique NEENT: Patient did not mention headache; no change in vision; no change in hearing; no sore throat;no dysphagia Respiratory: Patient did not mention shortness of breath; no pleuritic chest pain; no cough; no hemoptysis Cardiac: Patient did not mention cardiac-like chest pain; no palpitations; no orthopnea; no PND; noDOE Breasts: Patient did not mention tenderness; no masses GI: Patient did not mention abdominal pain; no nausea; no vomiting; no diarrhea; no hematochezia; no melena : Patient did not mention dysuria; no frequency; no hesitancy; no hematuria ENGINEER CONDUCTOR: Musculosketetal: Patient did not mention bone pain; no arthralgia; no joint swelling; no myalgia; Skin: Patient did not mention pruritis; no rash; no petechiae; no ecchymoses Endocrine: Patient did not mention polydipsia; no polyuria; no unusual weight gain Neuro: Patient did not mention headache; no change in vision; no sensory changes; no muscle weakness; no confusion; no seizures Psych: Patient did not mention anxiety; no depression; Physical Exam Vitals: As per nursing note Constitutional: Well developed, well nourished, no acute distress, non-toxic appearance Teeth and gum. No signs of infection or swelling. Eyes: PERRL, conjunctiva normal HEENT: Atraumatic, external ears normal, nose normal, oropharynx moist, no pharyngeal exudates. no sinus tenderness Neck- normal range of motion, no tenderness, supple Cardiovascular: Normal rate, normal rhythm, no murmurs, no gallops, no rubs GI: Soft, nondistended, normal bowel sounds, nontender, no splenomegaly, no hepatomegaly, no mass, no rebound, no guarding : No costovertebral angle tenderness Musculoskeletal: No edema, no tenderness, no deformities. Back- no tenderness Integument: Well hydrated, no rash, Digits and nails inspection normal Lymphatic: No lymphadenopathy noted Neurologic: Alert & oriented x 3, CN 2-12 normal, normal motor function, normal sensory function, no focal deficits noted Psychiatric: Speech and behavior appropriate ? labs No results found for this or any previous visit (from the past 24 hours). Labs from August 18, 2024 showed WBC 2.9 hemoglobin 12.5 MCV 104 platelet 195,000 neutrophils 39%lymphocyte 48% Pathology ? Imaging & Other Studies Performance Status? Assessment / Plan: ? Leukopenia. Patient is a pleasant 44-year-old female who has been in great health except history of previous admission to the hospital with respiratory failure requiring intubation in 2005.Patient also had COVID infection in April 2024. Patient drinks wine almost on a daily basis after the dinner. She had labs done during the routine visit in July 2024 that showed WBC count of 2.9. She had labs from March 2023 that showed WBC of 3.3. Clinically she denies any bleeding and bruising. She has occasional night sweats and hot flashes but has been going through perimenopausal phase. On my examination there is no evidence of lymphadenopathy and hepatosplenomegaly. I have discussed the differential diagnosis of leukopenia with the patient including autoimmune leukopenia, drug-induced leukopenia, nutritional deficiencies, liver and spleen disorder, and bone marrow disorder. There is a possibility of drug-induced leukopenia secondary to Aldactone versus possibility of liver and spleen disorder due to daily alcohol consumption. I will order the workup that will include CBC with differential, CMP, JULIETTE, iron profile, vitamin B12 and folic acid level, abdominal ultrasound. Follow-up in 3 weeks to discuss findings and further recommendations. I have answered all the questions to patient satisfaction. Acne. Patient is on Aldactone. Thank you very much for allowing me to participate in Pam Sue's evaluation and management. Please feel free to contact if I can be of any further assistance in your patient???s care requiring hematology or oncology evaluation. Sincerely, ? ? Kwaku Sidhu M.D. cell TOBACCO COUNSELING She is not a tobacco/nicotine user. Kwaku Sidhu MD ,11/23/2024 10:59 AM ? Total time spent 60 minutes, two third of the total time spent counseling patient [id number]. CC:?John Jansen MD MOLDER documented in this encounter Plan of Treatment Upcoming Encounters Date Type Department Care Team (Late st Contact Info) Description 12/14/2024 1:00 PM CDT Office Visit [facility] - [place] [address] [facility] [address] [place] [address] Kwaku Sidhu MD [address] [facility] [address] [place] [address] Scheduled Orders Name Type Priority Associated Diagnoses Orde r Schedule CBC WITH DIFFERENTIAL Lab Stat Chronic anemia Expected: 11/23/2024, Expires: 11/23/2025 COMPREHENSIVE METABOLIC PANEL Lab Stat Chronic anemia Expected: 11/23/2024, Expires: 11/23/2025 FERRITIN Lab Routine Chronic anemia Expected: 11/23/2024, Expires: 11/23/2025 IRON, TIBC, AND PERCENT SATURATION Lab Routine Chronic anemia Expected: 11/23/2024, Expires: 11/23/2025 VITAMIN B12 AND FOLATE Lab Routine Chronic anemia Expected: 11/23/2024, Expires: 11/23/2025 METHYLMALONIC ACID Lab Routine Chronic anemia Expected: 11/23/2024, Expires: 11/23/2025 TRANSFERRIN RECEPTOR TFR SOLUBLE Lab Routine Chronic anemia Expected: 11/23/2024, Expires: 11/23/2025 US ABDOMEN COMPLETE Imaging Routine Leukopenia, unspecified type 1 Occurrences starting 11/23/2024 until 11/23/2025 JULIETTE SCREEN W/REFLEX Lab Routine Leukopenia, unspecified type Expected: 11/23/2024, Expires: 11/23/2025 documented as of this encounter Visit Diagnoses Diagnosis Leukopenia, unspecified type- Primary Chronic anemia Anemia, unspecified documented in this encounter Care Teams Predator Control Trapper Relationship Specialty Start Date End Date John Jansen MD [address] [place] [address] PCP - General Family Practice 05/09/12 documented as of this encounter
--- OUTSIDE RECORDS SUMMARY | 2024-11-23 12:52 | XMS_ITS | Continuity of Care Document ---
Author Organization [facility] Address [address] [place] [address] Phone Care Team Providers Care Fire Alarm Mechanic Name Role Phone Brett Hernandez MD Unavailable Unavailable Allergies, Adverse Reactions, Alerts Substance Reaction Status Criticality No Known Allergies Active No Inform ation Medications Medication Instructions Dosage Effective Dates (start - stop) Status Comments No Drug Therapy Prescribed Procedures Procedure Date OFFICE/OUTPATIENT VISIT EST OFFICE/OUTPATIENT VISIT EST OFFICE/OUTPATIENT VISIT NEW Advance Directives Directive Yes / No Effective Date File Name No Information Encounters Encounter Description Practice Location Reason(s) For Visit Diagnoses Date Provider Providers Copied on Encounter OFFICE/OUTPA TIENT VISIT EST [facility], [address] [place] [address], [address], tel:[phone] [facility] My back is very sore today (chief complaint) Body Mass Index 29.0-29.9, adultLow Back PainSpondyloli sthesis [address] [place], [place], [id number] . tel: [phone] OFFICE/OUTPA TIENT VISIT EST [facility], [address] [facility] [place], [address], tel:[phone] [facility] my neck is better (chief complaint) my back is still very sore (chief complaint) Body Mass Index 29.0-29.9, adultNeck painSpondyloli sthesisLow Back Pain 0 [address] [place], [place], [id number] . tel:[phone] Referring Provider: John Buenrostro, [address], [place], [address]. tel:[phone] OFFICE/OUTPA TIENT VISIT NEW [facility], [address], [place], [address], tel:[phone] [facility] Body Mass Index 29.0-29.9, adultDietary surveillance and counselingNeck painLow Back PainSpondyloli sthesis [address] , [place], [place], [id number] . tel:[phone] Referring Provider: John Buenrostro, [address], [place], [address]. tel:[phone] Family History Family Member Type Diagnosis Age At Onset Problem (finding) Family history of ortho pedic problems Payers Payer name Insurance type Covered republican ID Authoriza tion(s) No Information Social History Type Description Quantity Date Captured Comments Alcohol Use Details Unknown Caffeine Use Details Unknown Tobacco Use Status No Information Smoking Status No Information Sex Female Vital Signs Date / Time: Height Weight BMI Pulse Rate Blood Pressure Temperature Respiratory Rate Body Surface Area Head Circumference Head Circ. Percentile Wt./Juaquin. Percentile BMI percentile Pulse Ox Inhaled Ox 10:29 AM 70.00 in 68.039 kg (150.00 lbs) 21.5 2 kg/m eter (2) Chief Complaint And Reason For Visit From encounter dated '04/14/2014 10:20'. My back is very sore today (chief complaint) Reason For Referral Reason For Referral No Information Plan Of Treatment Date Type Action Status Referral Ordered: MRI SPI CANAL&CNTS LMBR C-MATRL Appointment date/timeframe: 04/14/2014 ordered Referral Ordered: RADEX SPI LUMBOSAC 2/3 VIEWS ordered Referral Ordered: RADEX SPI CRV 2/3 VIEWS ordered History Of Present Illness Encounter Date Complaint History Of Prese nt Illness My back is very sore today my neck is better my back is still very sore Functional Status Date Functional Assessmen t No Information Medications Administered Medication Instructions Dosage Effective Dates (start - stop) Status Comments No Drug Therapy Prescribed Instructions Date Instruction Additional Infor jose At this time, we hav e exhausted all non-operative management for this patient in the form of physical therapy, anti-inflammatories, and life style modifications, all of which have failed to alleviate the patient's back and leg symptoms. I feel the patient would be an excellent candidate for a transforaminal lumbar interbody fusion at the L5-S1 level. The risks and benefits associated with the procedure were discussed at length with the patient which include bleeding, infection, nerve injury, non-union, continued pain, and need for further surgery. I also discussed the risk of injury to a nerve resulting in weakness in one or both legs, risk of re-herniation of more disc material, risk of dural tear resulting in a CSF leak requiring further surgery, and the risk of developing blood clots in their leg that could result in pulmonary embolus or stroke as well as possible blindness. The patient understands this and wishes to go home and think about this. I discussed with the patient that I do not routinely schedule surgeries over the phone. If the patient calls within the next 24 hours, I will be happy to get them on the schedule. Otherwise, I would like for the patient to return to the office for further discussion. All questions were answered. Related to Spondylolisthesis At this time the zuly means is doing quite well with complete resolution of their neck pain. I will release the patient from my care. I told the patient for the mild aches and pains, Tylenol, Ibuprofen and Aleve work great. For the more consistent pain, the patient should try taking an anti-inflammatory scheduled for two to three days. I also discussed with the patient the importance of continuing the home exercises provided by the physical therapist. I will see the patient again on an as needed basis. All the patient's questions were answered. Related to Neck pain At this time an MRI of the lumbar spine is needed to assess for soft tissue or disc pathology that may be contributing to the patient's continued low back pain symptoms. I encouraged the patient to continue doing the home exercises prescribed by the physical therapist. I will see the patient again after the MRI is completed. All the patient's questions were answered. Related to Spondylolisthesis Take new medication as prescribe d Activity as tolerated Do not stop meds when symptoms r esolve Assessments Type Assessment Date assessment Body Mass Index 29.0-29.9, adult assessment Low Back Pain assessment Spondylolisthesis Patient Care Teams Name Effective Dates (start - stop) Status Members No Information
--- OUTSIDE RECORDS SUMMARY | 2024-11-23 12:52 | XMS_ITS | Continuity of Care Document ---
Author Organization [facility] Address [address] [place] [address] Phone Care Team Providers Care Equipment Associate Name Role Phone Unavailable Unavailable Unavailable Advance Directives Directive Yes / No Effective Date File Name No Information Encounters Encounter Description Practice Location Reason(s) For Visit Diagnoses Date Provider Providers Copied on Encounter [facility], [address] [facility], [place], [place], [id number], tel:[phone] [facility] No Information 3201 2 No Information Referring Provider: LOU ASCENCIO, [address] [place] [address],[place], [address]. tel:[phone] Family History Family Member Type Diagnosis Age At Onset No Information Payers Payer name Insurance type Covered libertarian ID Authoriza presley(s) [facility] PPO [id number] Social History Type Description Quantity Date Captured Comments Sex Female Smoking Status No Information Chief Complaint And Reason For Visit No Information History Of Present Illness Encounter Date Complaint History Of Prese nt Illness No Information Instructions Date Instruction Additional Infor mation No Information Assessments Type Assessment Date No Information
--- OUTSIDE RECORDS SUMMARY | 2024-11-23 12:52 | XMS_ITS | Clinical Summary ---
Author Organization [facility] Address [address] [place] [address] Care Team Providers Care Lead Maintenance Technician Name Role Phone John Jansen MD Primary Care Provider [phone] Source Comments [facility],non-owned Affiliates and Associated Physician Practices is amultiple site organization consisting of ambulatory clinics and hospital sitesin [place], [place], [place] and [place]. This disclosure is being madepursuant to the Care Everywhere program and may not contain all information available regarding this patient. Last updated 18.[facility] Allergies No known active allergies Medications * Be aware that medications may not be up to date on this document. Alwaysverify current medications with the patient. Medication Sig Dispensed Refills Start Date End Date Status levonorgestrel (MIRENA) 20 MCG/24HR IUD 1 Device by Intrauterine route as directed. Active Cetirizine-Pseudoep hedrine (ZYRTEC-D ALLERGY & CONGESTION PO) Take by mouth. Active naproxen (NAPROSYN) 500 MG tablet Take 1 Tab by mouth 2 times daily as needed for Pain. 20 Tab 0 09/21/2014 Active Social History Tobacco Use Types Packs/Day Years Used Date Smoking Tobacco: Never Smokeless Tobacco: Never Alcohol Use Standard Drinks/Week Comments Yes 0 (1 standard drink = 0.6 oz pur e alcohol) socially Sex and Gender Information Value Date Recorded Sex Assigned at Not on file Gender Identity Not on file Sexual Orientation Not on file Last Filed Vital Signs Vital Sign Reading Time Taken Comments Blood Pressure 102/62 09/21/2014 2:05 AM [employer] Pulse 78 09/21/2014 2:05 AM [employer]MENT [employer]IST Temperature 37 C (98.6 F) 09/21/2014 2:05 AM [employer] EQUIPMENT SPECIALIST Respiratory Rate 16 09/21/2014 2:05 AM MIL[employer]ARY EQUIPMENT SPECIALIST Oxygen Saturation 99% 09/21/2014 2:05 AM MILITARY EQUIPMENT SPECIALIST Inhaled Oxygen Concentration - - Weight 63.5 kg (140 lb) 09/20/2014 9:51 PM MIL[employer]ARY EQUIPMENT SPECIALIST Height 177.8 cm (5' 10 ) 09/20/2014 9:51 PM [employer] EQUIPMENT [employer]IST Body Mass Index 20.09 09/20/2014 9:51 PM MIL[employer]ARY EQUIPMENT SPECIALIST Plan of Treatment Health Maintenance Due Date Last Done Comments COLOGUARD (AGES 45-75) - COL ON CA SCREENING 1979 COLON MONITORING 1979 COLONOSCOPY - COLON CA SCREENING 1979 CT COLONOGRAPHY - COLON CA SCREENING 1979 Colorectal Cancer Screening 1979 FIT - COLON CA SCREENING 1979 FLEX SIG - COLON CA SCREENING 1979 LIPID TESTING 1979 MAMMOGRAM 1979 PAP SMEAR 1979 HIV SCREENING 1994 HEPATITIS C SCREENING 12/29/1996 DTAP/TDAP/TD VACCINES (1 - Tdap) 1998 HEPATITIS B VACCINE (1 of 3 - 19+ 3-dose series) 1998 COVID-19 VACCINE ( - 2023-2 5 season) 2024 INFLUENZA VACCINE (#1) 2024 DEPRESSION SCREENING 09/30/2024 ZOSTER VACCINE (1 of 2) 2029 HIB VACCINE Aged Out No longer eligi ble based on patient's age to complete this topic HPV VACCINE Aged Out No longer eligi ble based on patient's age to complete this topic MENINGOCOCCAL (Group B) VACCINE Aged Out No longer eligible based on patient's age to complete this topic MENINGOCOCCAL VACCINE Aged Out No damien sigrid eligible based on patient's age to complete this topic PNEUMOCOCCAL VACCINE Aged Out No long er eligible based on patient's age to complete this topic Care Teams Lead Maintenance Technician Relationship Specialty Start Date End Date John Jansen MD [address] [place] [address] PCP - General Family Medicine 09/20/14
--- OUTSIDE RECORDS SUMMARY | 2024-11-23 12:52 | XMS_ITS ---
Author Organization [facility] Address [address] [place] [address] Care Team Providers Care Headline Writer Name Role Phone Bisi Mayers Unavailable Unav ailable Allergies No Known Allergies REASON FOR VISIT [facility] [place] Medications Medication SIG (Take, Route, Frequency, Duration) Notes Start Date End Date Status Julia-D Allergy & Congestion 180-240 MG 1 Two Times A Day Oral 05/28/2008 Active Ortho-Novum (28) as directed *Reorder from [employer] for eRx and Interaction Alerts* 08/11/2008 Active Clindamycin Phosphate 1 % Apply BID External 02/13/2007 Active Mounika 28 3-0.03 MG As Directed Oral 12/05/2005 Active Diflucan 150 MG 1 Every Morning Oral 02/19/2006 Active Flonase Allergy Relief 50 MCG/ACT 2 sprays each nostril q day Nasal 05/28/2008 Active Differin 0.1 % apply q day External 02/13/2007 Active Calcium 600 High Potency 600 MG 1 Two Times A Day Oral 02/13/2006 Active Encounters Encounter Location Date Provider Diagnosis [facility] [address] [facility] [place] [address] 07/21/2023 zzzzProvider zzzzMigration Plan Of Treatment No Information Progress Notes * Pam MARKS EDOB:[birth year] (44 yo F)Acc No.[id number]:07/21/2023 Patient: Ivy Pam [place] :1980 A ge:43 Y S ex:Female Address:[address] [place] [address], [id number] Subjective: * Chief Complaints: * E MR-Ventura * Medical History: * Surgical History: * Hospitalization/Major Diagno stic Procedure: * Medications: T akingClindamycin Phosphate 1 % Lotion Apply BID External Diflucan 150 MG Tablet 1 Every Morning Oral Julia-D Allergy & Congestion 180-240 MG Tablet Extended Release 24 Hour 1 Two Times A Day Oral Flonase Allergy Relief 50 MCG/ACT Suspension 2 sprays each nostril q day Nasal Mounika 28 3-0.03 MG Tablet As Directed Oral Differin 0.1 % Gel apply q day External Calcium 600 High Potency 600 MG Tablet 1 Two Times A Day Oral Ortho-Novum (28) as directed , Notes to Pharmacist: *Reorder from [facility] for eRx and Interaction Alerts*Taking Clindamycin Phosphate 1 % Lotion Apply BID External Taking Diflucan 150 MG Tablet 1 Every Morning Oral Taking Julia-D Allergy & Congestion 180-240 MG Tablet Extended Release 24 Hour 1 Two Times A Day Oral Taking Flonase Allergy Relief 50 MCG/ACT Suspension 2 sprays each nostril q day Nasal Taking Mounika 28 3-0.03 MG Tablet As Directed Oral Taking Differin 0.1 % Gel apply q day External Taking Calcium 600 High Potency 600 MG Tablet 1 Two Times A Day Oral Taking Ortho-Novum (28) as directed , Notes to Pharmacist: *Reorder from [facility] for eRx and Interaction Alerts* * Allergies: N .K.D.A.no[Allergies Verified] Objective: * Vitals: * Physical Examination: Assessment: Plan: * Treatment: * Procedure Codes: * * Date:
--- OUTSIDE RECORDS SUMMARY | 2024-11-23 12:52 | XMS_ITS | Patient Health Summary ---
Author Organization [facility] [employer] Address [address] [place] [address] Care Team Providers Care Clerical And Office Support Workers Name Role Phone John Jansen MD Primary Care Provider [phone] Note from [facility],non-owned Affiliates and Associated Physician Practices is amultiple site organization consisting of ambulatory clinics and hospital sitesin [place], [place], [place] and [place]. This disclosure is being madepursuant to the Care Everywhere program and may not contain all information available regarding this patient. Last updated 18.[facility] [employer] Allergies No known active allergies Medications * Be aware that medications may not be up to date on this document. Alwaysverify current medications with the patient. * levonorgestrel (MIRENA) 20 MCG/24HR IUD 1 Device by Intrauterine route as directed. * Cetirizine-Pseudoephedrine (ZYRTEC-D ALLERGY & CONGESTION PO) Take by mouth. * naproxen (NAPROSYN) 500 MG tablet(Started 09/21/2014) Take 1 Tab by mouth 2 times daily as needed for Pain. Social History Tobacco Use Types Packs/Day Years [...] Comments Blood Pressure 102/62 09/21/2014 2:05 AM BOX BR[facility]ER Pulse 78 09/21/2014 2:05 AM BOX BR[facility]ER Temperature 37 C (98.6 F) 09/21/2014 2:05 AM BOX BRANDER Respiratory Rate 16 09/21/2014 2:05 AM BOX BRANDER Oxygen Saturation 99% 09/21/2014 2:05 AM BOX BRANDER Inhaled Oxygen Concentration - - Weight 63.5 kg (140 lb) 09/20/2014 9:51 PM BOX BRANDER Height 177.8 cm (5' 10 ) 09/20/2014 9:51 PM BOX BRANDER Body Mass Index 20.09 09/20/2014 9:51 PM B[facility]ER Procedures * ED LACERATION REPAIR(Performed 09/21/2014) Performed for Laceration of face, initial encounter * HCG URINE QUALITATIVE - POINT OF CARE(Performed 09/21/2014) * URINE MICROSCOPIC ONLY REFLEX TO CULTURE(Performed 09/21/2014) * URINALYSIS REFLEX MICROSCOPIC REFLEX CULTURE(Performed 09/21/2014) * CULTURE URINE(Performed 09/21/2014) * TROPONIN I(Performed 09/20/2014) * COMPREHENSIVE METABOLIC PANEL(Performed 09/20/2014) * CBC W AUTO DIFFERENTIAL(Performed 09/20/2014) * EKG 12-LEAD(Performed 09/20/2014) Performed for Syncope and collapse Results * ED LACERATION REPAIR (09/21/2014 1:56 AM BOX BRANDER) Narrative Jael Porter MD - 09/21/2014 1:56 AM BOX BRANDER Jael Porter MD 09/21/2014 1:56 AM Provider contact with the patient: 09/20/2014 22:38 Pam[place]ary GoldsteinSue [id number] [facility] EMERGENCY DEPARTMENT History Chief Complaint Patient presents with LOSS OF CONSCIOUSNESS pt was found in [facility] after falling over Laceration Head 1 inch lac on left side of head Chief complaint narrative was entered by triage nurse, not by physician. HPI Comments: 11:13 PM: Friend states that the friend went to the bathroom at the restaurant and the trench digger came to report that the pt had passed out. Pt awoke and passed out a second time at which time she hit her head. She reports drinking 1 cocktail. Syncope The history is provided by the patient and friend. This is a new problem. The current episode started 3 to 5 hours ago. The problem occurs intermittent. The problem has been resolved. The patient had a Syncope episode.The episode was witnessed. She lost consciousness for a period of 1 to 5 minutes. The patient was standing at the time of event.The problem is associated with nothing. Associated symptoms include diaphoresis and dizziness. Pertinent negatives include chest pain, fever, headaches, nausea, palpitations and vomiting. She has tried nothing for the symptoms. The treatment provided no relief. NICHOLE Syncope Rule Bradycardia (bpm < 50) or palpitations?: No=0. Hemoglobin less than 9.0?: No=0. Chest Pain or Shortness of Breath with Syncope?: No=0. O2 Saturation less than/equal to 94% Room Air?: No=0. Past Medical History Diagnosis Date NEGATIVE PAST MEDICAL HISTORY - SEE PROBLEM LIST Pneumonia Encephalitis Pancreatitis Mononeuritis Past Surgical History Procedure Laterality Date Skin biopsy Family History Problem Relation Age of Onset Family history unknown: Yes History Social History Marital Status: Spouse Name: N/A Number of Children: N/A Years of Education: N/A Occupational History Not on file. Social History Main Topics Smoking status: Never Smoker Smokeless tobacco: Never Used Alcohol Use: Yes Comment: socially Drug Use: No Sexual Activity: Not on file Other Topics Concern Not on file Social History Narrative Review of Systems Review of Systems Constitutional: Positive for diaphoresis. Negative for fever and chills. Eyes: Negative for blurred vision, double vision and redness. Respiratory: Negative for cough and shortness of breath. Cardiovascular: Positive for syncope. Negative for chest pain and palpitations. Gastrointestinal: Negative for nausea, vomiting and diarrhea. Genitourinary: Negative for urgency, frequency and hematuria. Skin: (+) Abrasion to the left forehead Neurological: Positive for dizziness and loss of consciousness. Negative for tingling, sensory change and headaches. All other systems reviewed and are negative. Physical Exam BP 94/59 Pulse 76 Resp 20 Ht 1.778 m (5' 10 ) Wt 63.504 kg (140 lb) BMI 20.09 kg/m2 SpO2 99% Physical Exam Constitutional: She is oriented to person, place, and time. Vital signs are normal. She appears well-developed and well-nourished. HENT: Head: Normocephalic and atraumatic. Right Ear: External ear normal. Left Ear: External ear normal. Nose: Nose normal. Mouth/Throat: Oropharynx is clear and moist. 3 cm laceration with straight edges to the left forehead above the eyebrow extending to subcutaneous. No FB or bleeding. Eyes: Conjunctivae and EOM are normal. Pupils are equal, round, and reactive to light. Neck: Trachea normal, normal range of motion and full passive range of motion without pain. Neck supple. Cardiovascular: Normal rate, regular rhythm, normal heart sounds and normal pulses. Exam reveals no gallop and no friction rub. No murmur heard. Pulmonary/Chest: Effort normal and breath sounds normal. No respiratory distress. She has no wheezes. She has no rales. Abdominal: Soft. Normal appearance and bowel sounds are normal. There is no tenderness. Musculoskeletal: Normal range of motion. Neurological: She is alert and oriented to person, place, and time. GCS eye subscore is 4. GCS verbal subscore is 5. GCS motor subscore is 6. Skin: Skin is warm and dry. Nursing note and vitals reviewed. Medications Current Outpatient Prescriptions Medication Sig Dispense Refill cephALEXin (KEFLEX) 500 MG capsule Take 1 Cap by mouth 4 times daily for 7 days. For 7 days. 28 Cap 0 naproxen (NAPROSYN) 500 MG tablet Take 1 Tab by mouth 2 times daily as needed for Pain. 20 Tab 0 levonorgestrel (MIRENA) 20 MCG/24HR IUD 1 Device by Intrauterine route as directed. Cetirizine-Pseudoephedrine (ZYRTEC-D ALLERGY & CONGESTION PO) Take by mouth. Procedures Laceration Repair Date/Time: 09/21/2014 12:21 AM Performed by: JAEL PORTER Authorized by: JAEL PORTER Consent: Verbal consent obtained. Risks and benefits: risks, benefits and alternatives were discussed Consent given by: patient Patient understanding: patient states understanding of the procedure being performed Patient consent: the patient's understanding of the procedure matches consent given Procedure consent: procedure consent matches procedure scheduled Required items: required blood products, implants, devices, and special equipment available Patient identity confirmed: arm band, verbally with patient and hospital-assigned identification number Body area: head/neck Location details: left eyebrow Laceration length: 3 cm Foreign bodies: no foreign bodies Tendon involvement: none Nerve involvement: none Vascular damage: no Anesthesia: local infiltration Local anesthetic: lidocaine 1% with epinephrine Patient sedated: no Preparation: Patient was prepped and draped in the usual sterile fashion. Irrigation solution: saline Irrigation method: jet lavage Amount of cleaning: standard Debridement: none Degree of undermining: none Wound skin closure material used: 6-0 Chromic plain gut. Number of sutures: 10 Technique: running Approximation: close Approximation difficulty: simple Dressing: antibiotic ointment Patient tolerance: Patient tolerated the procedure well with no immediate complications ECG Interpretation Date/Time: 09/20/2014 10:24 PM Interpreted by ED provider Comparison: not compared with previous ECG Previous ECG: no previous ECG available Rhythm: sinus rhythm Rate: normal BPM: 73 QRS axis: normal Clinical impression: normal ECG ECG Rhythm Interpretation Lab Interpretation Oxygen Saturation Interpretation The oxygen saturation level is: 99%. The patient was on Room Air for the saturation measurement. Measurement frequency: Continuous. Oxygen saturation interpretation is Normal. Intervention(s) used: None. Results for orders placed during the hospital encounter of 09/20/14 CBC W AUTO DIFFERENTIAL Result Value Range WBC 4.4 4.4-10.7 x10^9/L RBC 3.60 (*) 3.80-5.20 x10^12/L Hgb 12.3 12.0-15.6 gm/dL HCT 34.8 (*) 35.9-45.5 % MCV 96.7 80.7-98.3 fl MCH 34.2 (*) 26.7-34.0 pg MCHC 35.3 30.8-35.9 gm/dL Plt Ct 161 153-416 x10^9/L RDW-CV 12.3 12.1-14.9 % MPV 9.3 (*) 9.4-12.9 fl Neutro 42.9 (*) 44.0-73.0 % Lymph 44.1 (*) 20.0-43.0 % Gilliam 6.2 5.0-13.0 % Eos 5.7 0.0-6.0 % Baso 0.9 0.0-2.0 % Immature Grans 0.2 0-1 % Neutro Abs 1.86 (*) 2.01-7.14 x10^9/L Lymph Abs 1.92 1.07-3.94 x10^9/L Gilliam Abs 0.27 0.26-1.07 x10^9/L Eosin Abs 0.25 0-0.47 x10^9/L Baso Abs 0.04 0-0.08 x10^9/L Immature Grans Abs 0.01 0.00-0.06 x10^9/L NRBC Auto 0 COMPREHENSIVE METABOLIC PANEL Result Value Range Glucose 94 74-106 mg/dL Sodium 141 136-145 mmol/L Potassium 3.5 3.5-5.1 mmol/L Chloride 107 98-107 mmol/L CO2 26 22-31 mmol/L Calcium 8.4 (*) 8.5-10.1 mg/dL Anion Gap 8 5-15 mmol/L BUN 6 (*) 7-21 mg/dL Creatinine 0.62 0.50-1.30 mg/dL eGFR MDRD >60 >60 mL/min/1.73m2 eGFR MDRD AFR AMR >60 >60 mL/min/1.73m2 Alk Phos 59 38-126 U/L ALT/SGPT 16 12-78 U/L AST/SGOT 12 5-40 U/L Protein Total 6.9 6.4-8.2 gm/dL Albumin 3.7 3.4-5.0 gm/dL Bili Total 0.3 0.2-1.0 mg/dL URINALYSIS ROUTINE W/REFLEX TO CULTURE Result Value Range Color UA Yellow Straw, Yellow, Dark Yellow Clarity UA Clear Specific Hondo UA 1.018 1.005-1.030 pH UA 7.0 5.0-8.0 pH Protein UA Trace (*) Negative Blood UA Negative Negative Leukocyte UA 1+ (*) Negative Nitrite UA Negative Negative Glucose UA Negative Negative Ketone UA Negative Negative Bili UA Negative Negative Urobilinogen UA 0.2 0.1-1.0 EU/dL WBC UA Auto 10-20 (*) 0-2, 2-5 #/hpf RBC UA Auto 2-5 0-2, 2-5 #/hpf Epithelial Cell UA Auto 5-10 (*) 0-2, 2-5 #/hpf Hyaline Casts UA Auto 2-5 (*) 0-2 #/lpf Reflex Status Culture to follow TROPONIN I Result Value Range Troponin I <0.015 0.000-0.049 ng/mL HCG URINE QUALITATIVE - POINT OF CARE (IP) Result Value Range HCG Qual Urine Negative Negative QC Verified Yes Yes Progress Notes 12:57 AM Rechecked pt - I d/w pt the diagnostic lab findings and plan for discharge at this time. Pt agrees to plan and all questions answered. Pt is medically stable for d/c home at this time. I have given the patient instructions regarding her diagnosis, expectations, follow up, and return precautions. I explained to the patient that emergent conditions may arise and to return to the ER for new, worsening, or any persistent conditions. I've explained the importance of following up with her doctor--John Jansen--as instructed. The patient verbalized understanding of the discharge instructions. ED Course Medical Decision Making I have reviewed the: Nursing Notes and Vitals. I have interpreted the following results: Labs, 12 Lead EKG and Oxygen Saturation. I have discussed the case with Family/Caregiver (Friends). Orders Placed This Encounter ED LACERATION REPAIR CULTURE URINE CBC W AUTO DIFFERENTIAL COMPREHENSIVE METABOLIC PANEL URINALYSIS ROUTINE W/REFLEX TO CULTURE TROPONIN I URINALYSIS MICROSCOPIC ONLY W/REFLEX CULTURE HCG URINE QUALITATIVE - POINT OF CARE (IP) EKG 12-LEAD 0.9% NaCl IV Bolus lidocaine (XYLOCAINE) 1 % injection cephALEXin (KEFLEX) 500 MG capsule naproxen (NAPROSYN) 500 MG tablet Diagnosis: Final diagnoses: Syncope and collapse Orthostatic hypotension Laceration of face, initial encounter New Medications: New Prescriptions CEPHALEXIN (KEFLEX) 500 MG CAPSULE Take 1 Cap by mouth 4 times daily for 7 days. For 7 days. NAPROXEN (NAPROSYN) 500 MG TABLET Take 1 Tab by mouth 2 times daily as needed for Pain. I have advised the patient to follow-up with: John Jansen MD [address] [place] [address] [place] [address] Call in 1 day Dale Julio MD [address] [place] [address] Call in 1 day Disposition: Discharged I have reviewed the information recorded by the scribe and agree with its accuracy and contents--Dr. Porter 09/21/2014 1:56 AM Transcribed by Tali Stevens acting scribe on behalf of Dr. Porter 09/21/2014 12:57 AM Jael Porter MD PROCEDURE/MINOR SURG ICAL ORDERABLES * HCG URINE QUALITATIVE - POINT OF CARE (IP) (09/21/2014 12:53 AM BOX BRANDER) HCG Qual Urine Negative Negative [facility] POCT TESTING QC Verified Yes Yes [facility] POC T TESTING Urine specimen (specimen) URINE / Unknown 09/21/2014 12:53 AM B[facility]ER Jael Porter MD LAB - POINT OF CARE ORDERABLES Performing Organization Address [facility]/State/ZIP Co de Phone Number [facility] POCT TESTING [address] * (ABNORMAL) URINALYSIS MICROSCOPIC ONLY W/REFLEX CULTURE (09/21/2014 12:49 AM BOX BRANDER) RBC UA 0-2 0-2, 2-5 # /hpf 09/21/2014 2:11 AM BOX BR[facility]ER [facility] WBC UA 5-10(A) 0-2, 2-5 # /hpf 09/21/2014 2:11 AM [facility] Bacteria UA 2+(A) None Seen 09/21/2014 2:11 AM [facility] Epithelial Cell UA 2-5 0-2, 2-5 09/21/2014 2:11 AM [facility] Urine URINE SPECIMEN OBTAINED BY CLEAN CATCH PROCEDURE / Unknown Collection / Unknown 09/21/2014 12:49 AM BOX BR[facility]ER 09/21/2014 1:41 AM B[facility]ER Jael Porter MD LAB - URINALYSIS ORD ERABLES [facility] [address] [place] [address] * (ABNORMAL) URINALYSIS ROUTINE W/REFLEX TO CULTURE (09/21/2014 12:49 AM BOX BRANDER) Color UA Yellow Straw, Yellow, Dark Yellow 09/21/2014 1:51 AM [facility] Clarity UA Clear 09/21/2014 1:51 AM [facility] Specific Hondo UA 1.018 1.005 - 1.030 09/21/2014 1:51 AM [facility] pH UA 7.0 5.0 - 8.0 pH 09/21/2014 1:51 AM [facility] Protein UA Trace(A) Negative 09/21/2014 1:51 AM B[facility] BR[facility]ER [facility] Blood UA Negative Negative 09/21/2014 1:51 AM B[facility] BR[facility]ER [facility] Leukocyte UA 1+(A) Negative 09/21/2014 1:51 AM [facility]ER [facility] Nitrite UA Negative Negative 09/21/2014 1:51 AM B[facility]ER [facility] Glucose UA Negative Negative 09/21/2014 1:51 AM B[facility] BR[facility]ER [facility] Ketone UA Negative Negative 09/21/2014 1:51 AM [facility]ER [facility] Bilirubin UA Negative Negative 09/21/2014 1:51 AM [facility] Urobilinogen UA 0.2 0.1 - 1.0 EU/dL 09/21/2014 1:51 AM [facility] WBC UA Auto 10-20(A) 0-2, 2-5 #/hpf 09/21/2014 1:51 AM B[facility] BR[facility]ER [facility] RBC UA Auto 2-5 0-2, 2-5 #/hpf 09/21/2014 1:51 AM B[facility]ER [facility] Epithelial Cell UA Auto 5-10(A) 0-2, 2-5 #/hpf 09/21/2014 1:51 AM B[facility] BR[facility]ER [facility] Hyaline Casts UA Auto 2-5(A) 0 - 2 #/lpf 09/21/2014 1:51 AM [facility] Reflex Status Culture to follow 09/21/2014 1:51 AM [facility] Urine URINE SPECIMEN OBTAINED BY CLEAN CATCH PROCEDURE / Unknown Collection / Unknown 09/21/2014 12:49 AM BOX BR[facility]ER 09/21/2014 1:41 AM BOX BR[facility]ER Jael Porter MD LAB - URINALYSIS ORD ERABLES Performing Organization Address City/[facility]/ZIP Co de Phone Number [facility] [address] [place] [address] * CULTURE URINE (09/21/2014 12:49 AM BOX BRANDER) Culture No Growth (<1,000 CFU/mL) BRUNA 09/23/2014 9:42 AM B[facility] BR[facility]ER [facility]CRO[facility] Urine URINE SPECIMEN OBTAINED BY CLEAN CATCH PROCEDURE / Unknown Collection / Unknown 09/21/2014 12:49 AM BOX BRANDER 09/21/2014 1:41 AM BOX BR[facility]ER Jael Porter MD LAB - MICROBIOLOGY O RDERABLES [facility] MICROBIOLOGY [address] [place] * TROPONIN I (09/20/2014 10:29 PM BOX BRANDER) Troponin I <0.015 0.000 - 0.049 ng/mL 09/20/2014 11:53 PM [facility] Blood BLOOD SPECIMEN / Unknown Venipuncture / Unknown 09/20/2014 10:29 PM B[facility] BR[facility]ER 09/20/2014 11:32 PM [facility] LABORATORY - 09/20/2014 11:53 PM [facility] Note: Diagnosis of myocardial infarction requires symptoms of ischemia or EKG changes of ischemia and TNI >99th of normal (0.05 ng/mL). Troponin should be drawn on initial assessment and 3-6 hours later as clinically indicated. Any condition resulting in myocardial cell damage can increase cardiac troponin levels. In addition to myocardial infarction, these include but are not limited to CHF, arrhythmia, myocarditis, and non-cardiac related causes such as pulmonary embolism, renal failure and sepsis. Jael Porter MD LAB - CHEMISTRY JUAN DANIEL [facility] Organization Address City/State/ZIP Co de Phone Number [facility] [address] [place], [place] [id number] * (ABNORMAL) CBC W AUTO DIFFERENTIAL (09/20/2014 10:29 PM [facility]) WBC 4.4 4.4 - 10.7 x10^9/L 09/20/2014 10:42 PM [facility] RBC 3.60(L) 3.80 - 5.20 x10^12/L 09/20/2014 10:42 PM [facility] Hemoglobin 12.3 12.0 - 15.6 gm/dL 09/20/2014 10:42 PM [facility] Hematocrit 34.8(L) 35.9 - 45.5 % 09/20/2014 10:42 PM [facility] MCV 96.7 80.7 - 98.3 fl 09/20/2014 10:42 PM [facility] MCH 34.2(H) 26.7 - 34.0 pg 09/20/2014 10:42 PM [facility] MCHC 35.3 30.8 - 35.9 gm/dL 09/20/2014 10:42 PM [facility] Platelet Count 161 153 - 416 x10^9/L 09/20/2014 10:42 PM [facility] RDW-CV 12.3 12.1 - 14.9 % 09/20/2014 10:42 PM [facility] MPV 9.3(L) 9.4 - 12.9 fl 09/20/2014 10:42 PM [facility] Neutrophils % 42.9(L) 44.0 - 73.0 % 09/20/2014 10:42 PM [facility] Lymphocytes % 44.1(H) 20.0 - 43.0 % 09/20/2014 10:42 PM [facility] Monocytes % 6.2 5.0 - 13.0 % 09/20/2014 10:42 PM [facility] Eosinophils % 5.7 0.0 - 6.0 % 09/20/2014 10:42 PM [facility] Basophils % 0.9 0.0 - 2.0 % 09/20/2014 10:42 PM [facility] Immature Granulocytes 0.2 0 - 1 % 09/20/2014 10:42 PM [facility] Neutrophil Absolute 1.86(L) 2.01 - 7.14 x10^9/L 09/20/2014 10:42 PM [facility] Lymphocytes Absolute 1.92 1.07 - 3.94 x10^9/L 09/20/2014 10:42 PM [facility] Monocytes Absolute 0.27 0.26 - 1.07 x10^9/L 09/20/2014 10:42 PM [facility] Eosinophils Absolute 0.25 0 - 0.47 x10^9/L 09/20/2014 10:42 PM [facility] Basophils Absolute 0.04 0 - 0.08 x10^9/L 09/20/2014 10:42 PM [facility] Immature Granulocytes Absolute 0.01 0.00 - 0.06 x10^9/L 09/20/2014 10:42 PM [facility] nRBC Auto 0 /100 WBC 09/20/2014 10:42 PM [facility] Blood BLOOD SPECIMEN / Unknown Collection / Unknown 09/20/2014 10:29 PM B[facility] BR[facility]ER 09/20/2014 10:34 PM [facility] Jael Porter MD LAB - HEMATOLOGY ORD ERABLES [facility] [address] [place] [address] * (ABNORMAL) COMPREHENSIVE METABOLIC PANEL (09/20/2014 10:29 PM [facility]) [facility] Signature Glucose 94 74 - 106 mg/dL 09/20/2014 11:01 PM [facility] Sodium 141 136 - 145 mmol/L 09/20/2014 11:01 PM [facility] Potassium 3.5 3.5 - 5.1 mmol/L 09/20/2014 11:01 PM [facility] Chloride 107 98 - 107 mmol/L 09/20/2014 11:01 PM [facility] CO2 26 22 - 31 mmol/L 09/20/2014 11:01 PM [facility] Calcium 8.4(L) 8.5 - 10.1 mg/dL 09/20/2014 11:01 PM [facility] Anion Gap 8 5 - 15 mmol/L 09/20/2014 11:01 PM [facility] BUN 6(L) 7 - 21 mg/dL 09/20/2014 11:01 PM [facility] Creatinine 0.62 0.50 - 1.30 mg/dL 09/20/2014 11:01 PM [facility] eGFR by MDRD >60 >60 mL/min/1.7 3m2 09/20/2014 11:01 PM [facility] eGFR by MDRD >60 >60 mL/min/1.7 3m2 09/20/2014 11:01 PM [facility] Alkaline Phosphatase 59 38 - 126 U/L 09/20/2014 11:01 PM [facility] ALT 16 12 - 78 U/L 09/20/2014 11:01 PM [facility] AST 12 5 - 40 U/L 09/20/2014 11:01 PM [facility] Protein Total 6.9 6.4 - 8.2 gm/dL 09/20/2014 11:01 PM [facility] Albumin 3.7 3.4 - 5.0 gm/dL 09/20/2014 11:01 PM [facility] Bilirubin Total 0.3 0.2 - 1.0 mg/dL 09/20/2014 11:01 PM [facility] Blood BLOOD SPECIMEN / Unknown Venipuncture / Unknown 09/20/2014 10:29 PM [facility] 09/20/2014 10:41 PM B[facility] BR[facility]ER Jael Porter MD LAB - CHEMISTRY JUAN DANIEL WILLSON Performing Organization Address [facility]/ZIP Co de Phone Number [facility] [address] [place] [address] * EKG 12-LEAD (09/20/2014 10:24 PM BOX BRANDER) Ventricular Rate 73 BPM [facility] Atrial Rate 73 BPM [facility] P-R Interval 174 ms [facility] QRS Duration ms 82 ms [facility] Q-T Interval ms 414 ms [facility] QTC Calculation (Bezet) 456 ms [facility] Calculated P [place] 43 degrees [facility] Calculated R [place] 88 degrees [facility] Calculated T [place] 65 degrees [facility] Interpretation EKG NORMAL SINUS RHYTHM NORMAL ECG NO PREVIOUS ECGS AVAILABLE Confirmed by MD Perez, Dieudonne ([id number]) on 09/21/2014 8:02:46 AM [facility] 09/20/2014 10:2 4 PM B[facility] BR[facility]ER 09/21/2014 8:02 AM B[facility] BR[facility]ER Jael Porter MD ECG ORDERABLES Performing Organization Address City/[facility]/ZIP Co de Phone Number [facility] M[facility] Care Teams Clerical And Office Support Workers Relationship Specialty Start Date End Date John Jansen MD [address] [facility] [place] [address] PCP - General Family Medicine 09/20/14
--- OUTSIDE RECORDS SUMMARY | 2024-11-23 12:52 | XMS_ITS ---
Author Organization [facility] Address [address] [place] [address] Care Team Providers Care Assembler Lay Ups Name Role Phone zzzzMigration, zzzzProvider Unavailable Unav ailable REASON FOR VISIT EMR-[facility] Encounters Encounter Location Date Provider Diagnosis [facility] [address] [place] [address] 07/20/2023 zzzzProvider zzzzMigration Plan Of Treatment No Information Progress Notes * Pam MARKS EDOB:[birth year] (44 yo F)Acc No.[id number]:07/20/2023 Patient: Ivy JAYA Pam Buenrostro :1980 A ge:43 Y S ex:Female Address:[address] [place] [address], [id number] Subjective: * Chief Complaints: * E MR-[place] * Medical History: * Surgical History: * Hospitalization/Major Diagno stic Procedure: * Medications: Objective: * Vitals: * Physical Examination: Assessment: Plan: * Treatment: * Procedure Codes: * * Date:
--- OUTSIDE RECORDS SUMMARY | 2024-11-23 12:52 | XMS_ITS | Referral Summary ---
Author Organization [facility] Address [address] [place] [address] Care Team Providers Care Delivery Manager Name Role Phone John Jansen MD Primary Care Provider [phone] Source Comments [facility],non-owned Affiliates and Associated Physician Practices is amultiple site organization consisting of ambulatory clinics and hospital sitesin [place], [place], [place] and [place]. This disclosure is being madepursuant to the Care Everywhere program and may not contain all information available regarding this patient. Last updated 18.[facility] Allergies No known active allergies Medications * [...] Comments Blood Pressure 102/62 09/21/2014 2:05 AM PLATE INSPECTOR Pulse 78 09/21/2014 2:05 AM PLATE INSPECTOR Temperature 37 C (98.6 F) 09/21/2014 2:05 AM PLATE INSPECTOR Respiratory Rate 16 09/21/2014 2:05 AM PLATE INSPECTOR Oxygen Saturation 99% 09/21/2014 2:05 AM PLATE INSPECTOR Inhaled Oxygen Concentration - - Weight 63.5 kg (140 lb) 09/20/2014 9:51 PM PLATE INSPECTOR Height 177.8 cm (5' 10 ) 09/20/2014 9:51 PM PLATE INSPECTOR Body Mass Index 20.09 09/20/2014 9:51 PM PLATE INSPECTOR Plan of Treatment Not on file Care Teams Delivery Manager Relationship Specialty Start Date End Date John Jansen MD [address] [place] [id number] PCP - General Family Medicine 09/20/14
[2024-11-23 13:13] LABS: Alanine Aminotransferase 20 U/L (6-35); Albumin Level 4.6 g/dL (3.5-5.1); Alkaline Phosphatase 63 U/L (38-126); Anion Gap 9 mmol/L (4-12); Aspartate Amino Transferase 31 U/L (14-36); Bilirubin,Total 0.5 mg/dL (0.2-1.3); Blood Urea Nitrogen 17 mg/dL (7-17); Calcium 9.2 mg/dL (8.4-10.2); Carbon Dioxide 27 mmol/L (22-30); Chloride 100 mmol/L (98-107); Estimated Glomerular Filt Rate > 60; Glucose 91 mg/dL (65-110); Potassium 5.2 mmol/L (3.4-5.0); Sodium 136 mmol/L (137-145)
[2024-11-23 13:26] LABS: Iron 148 ug/dL (37-170)
[2024-11-23 13:35] LABS: Percent Iron Saturation 56 % (20-50)
[2024-11-23 14:19] LABS: Folic Acid 15.7 ng/mL (2.76->20)
[2024-11-26 00:59] LABS: Methylmalonic Acid 136 nmol/L (55-335)
[2024-11-26 12:43] LABS: Soluble Transferrin Receptor 0.87 mg/L (0.76-1.76)
== END 2024-11-23 11:05 | disposition home or self-care (01) ==
LOC: ANHLAB 11:05
PROVIDERS: PCP Physician Assistant; Visit Provider Internal Medicine Hematology & Oncology
DX: D72.819 Decreased white blood cell count, unspecified (principal); D64.9 Anemia, unspecified
CPT/HCPCS: 36415; 80053; 82607; 82728; 82746; 83540; 83550; 83921; 84238; 85025; 86038; 86039

== ENCOUNTER 2024-12-03 10:27 | Outpatient (CLI) | payer OTHER, SELFPAY ==
--- NOTE | ~2024-12-03 | US_ITS ---
COMPLETE ABDOMINAL ULTRASOUND Ordering provider: Kwaku Sidhu MD History: . leukopenia . Comparison: None. FINDINGS: LIVER: Normal size and echotexture. No focal hepatic lesions or perihepatic fluid collections are kourtney ntified. Portal vein flow is normal. GALLBLADDER: Unremarkable. No evidence for stones, sludge, gallbladder wall thickening or pericholecy stic fluid collections. Wall thicknesses 2 mm. A negative sonographic Talavera's sign was noted. BILIARY DUCTS: No evidence for intra or extrahepatic biliary dilation. Common bile duct measures 2 mm in diameter which is within normal limits. PANCREAS: Normal echotexture and size. SPLEEN: Normal size, echotexture and contour and measures 9.9 cm in length. KIDNEYS: Right measures 10.1x 3.7x 4.6 cm in length and the left 12.2x 4.7x 4.2 cm in length. There i s no evidence for hydronephrosis, solid renal mass, renal calculi or perinephric fluid collections. N o renal cysts. UPPER ABDOMINAL AORTA: Normal in caliber. IVC: Patent. FREE FLUID: None. IMPRESSION: Unremarkable complete ultrasound of the abdomen. Reviewed, dictated and finalized at location A. RAL SURGEON
--- OUTSIDE RECORDS SUMMARY | 2024-12-03 12:00 | XMS_ITS | Data Portability ---
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 Plan of Treatment Reminders Order Date Submit Date Provider Last Modified By Organization Details Last Modified Time Details Appointments ANNUAL 30 2024 09:00A M ELISHA Mccallum Not available Not available Not available Lab TSH + free T4, serum 2023 024 [place] [facility], [address], [place], [address], 08/18/2024 10:14:46 lipid panel, serum 2023 024 [place] Nguyen, [address], [place], [address], 08/18/2024 10:14:44 CMP, serum or plasma 2023 024 [place] Nguyen, [address], [place], [address], 08/18/2024 10:14:47 CBC w/ auto diff 2023 024 [place] Kai, [address], [place], [address], 08/18/2024 10:14:49 noninvasi ve colorecta l cancer DNA + occult blood screening , QL, stool 2023 024 [place] [email or web address] (Cologuard Orders Only), [address], [address], [place], [address], 07/09/2024 21:56:55 HbA1c (hemoglob in A1c), blood 2023 024 [place] [facility], [address], [place], [address], 08/18/2024 10:14:48 Referral None recorded. Procedures None recorded. Surgeries None recorded. Imaging MAMMO, screening , digital, bilateral 2023 024 [email or web address] [facility], [address], [place], [address], 12/02/2024 11:25:11 Medication Orders None recorded. Patient TargetsNo targets [...] ectiv e cross -sect ional study of ,00 0 indiv [facility]ual [facility] risk for color ectal cance r who were scree artemio with both Colog uard and colon oscop y. (Saw Thorne et al, N Engl J Med 2014; 370(1 4):12 86-12 97) The rosio l value (refe rence range ) for this assay is negat fred. COLOG UARD RE-SC ADELIA [place] RECOM MENDA TION: Perio dic color ectal cance r scree andre is an impor tant part of preve ntive healt hcare for asymp tomat ic indiv idual s at [facility] risk for color ectal cance r. Follo wing a negat fred Colog uard resul t, the Ameri can Cance r Socie ty and U.S. Multi -Soci ety Task Force scree andre guide lines recom mend a Colog uard re-sc reetonio ng inter marco of 3 years . [...] 112:1 016-1 030. TEST DESCR IPTIO N: [place] site algor ithmi c srinivas sis of [...] years or older , who are at [facility] for color ectal cance r (CRC) . [...] study of 0 indiv idual s [facility] risk for color ectal cance r who [...] wing locat ion: www.e xactl abs.c om/re sulgisella . Addit ional descr iptio n of the Colog uard test proce ss, warni ngs and preca ution s can be found at www.c wagner wangd.c om. Not Available [facility] (Cologuard Orders Only) [address], [place], [address], 07/09/2024 21:56:55 08/17/20 24 08/18/2024 LIPID PANEL W/ CHOL/ HDL RATIO cholesterol, total 194 mg/dL 100-19 9 Not Available [facility] ([facility]) [address], [place], [address], 08/18/2024 10:14:44 08/17/20 24 08/18/2024 LIPID PANEL W/ CHOL/ HDL RATIO triglyceride s 46 mg/dL 0-149 Not Available [facility] ([facility]) [address], [place], [address], 08/18/2024 10:14:44 08/17/20 24 08/18/2024 LIPID PANEL W/ CHOL/ HDL RATIO HDL cholesterol 115 mg/dL >39 Not Available [facility] ([facility]) [address], [place], [address], 08/18/2024 10:14:44 08/17/20 24 08/18/2024 LIPID PANEL W/ CHOL/ HDL RATIO VLDL cholesterol kassandra 9 mg/dL 5-40 Not Available [facility] ([facility]) [address], [place], [address], 08/18/2024 10:14:44 08/17/20 24 08/18/2024 LIPID PANEL W/ CHOL/ HDL RATIO LDL chol calc ([facility]) 70 mg/dL 0-99 Not Available [facility] ([facility]) [address] [place], [address], 08/18/2024 10:14:44 08/17/20 24 08/18/2024 LIPID PANEL W/ CHOL/ HDL RATIO T. chol/HDL ratio 1.7 ratio 0.0-4. 4 T. Chol/ HDL Ratio Men Women 1/2 Avg.R isk 3.4 3.3 Avg.R isk 5.0 4.4 2X Avg.R isk 9.6 7.1 3X Avg.R isk 23.4 11.0 Not Available [facility] ([facility]) [address], [place], [address], 08/18/2024 10:14:44 08/17/20 24 08/18/2024 TSH+F REE T4 TSH 1.980 uIU/m L 0.450- 4.500 Not Available [facility] ([facility]) [address] [place], [address], 08/18/2024 10:14:45 08/17/20 24 08/18/2024 TSH+F REE T4 T4,free(dire ct) 1.05 NG/dL 0.82-1 .77 Not Available [facility] ([facility]) [address], [place], [address], 08/18/2024 10:14:45 08/17/20 24 08/18/2024 COMP. METAB OLIC PANEL (14) glucose 97 mg/dL 70-99 Not Available [facility] ([facility]) [address] [place], [address], 08/18/2024 10:14:47 08/17/20 24 08/18/2024 COMP. METAB OLIC PANEL (14) BUN 15 mg/dL 6-24 Not Available [facility] ([facility]) [address] [place], [address], 08/18/2024 10:14:47 08/17/20 24 08/18/2024 COMP. METAB OLIC PANEL (14) creatinine 0.83 mg/dL 0.57-1 .00 Not Available [facility] ([facility]) [address] [place], [address], 08/18/2024 10:14:47 08/17/20 24 08/18/2024 COMP. METAB OLIC PANEL (14) eGFR 89 mL/mi n/1.7 3 >59 Not Available [facility] ([facility]) [address], [place], [address], 08/18/2024 10:14:47 08/17/20 24 08/18/2024 COMP. METAB OLIC PANEL (14) BUN/creatini ne ratio 18 - Not Available [facility] ([facility]) [address], [place], [address], 08/18/2024 10:14:47 08/17/20 24 08/18/2024 COMP. METAB OLIC PANEL (14) sodium 139 mmol/ L 134-14 4 Not Available [facility] ([facility]) [address], [place], [address], 08/18/2024 10:14:47 08/17/20 24 08/18/2024 COMP. METAB OLIC PANEL (14) potassium 4.9 mmol/ L 3.5-5. 2 Not Available [facility] ([facility]) [address], [place], [address], 08/18/2024 10:14:47 08/17/20 24 08/18/2024 COMP. METAB OLIC PANEL (14) chloride 103 mmol/ L 96-106 Not Available [facility] ([facility]) [address], [place], [address], 08/18/2024 10:14:47 08/17/20 24 08/18/2024 COMP. METAB OLIC PANEL (14) carbon dioxide, total 23 mmol/ L 20-29 Not Available [facility] ([facility]) [address], [place], [address], 08/18/2024 10:14:47 08/17/20 24 08/18/2024 COMP. METAB OLIC PANEL (14) calcium 8.8 mg/dL 8.7-10 .2 Not Available [facility] ([facility]) [address], [place], [address], 08/18/2024 10:14:47 08/17/20 24 08/18/2024 COMP. METAB OLIC PANEL (14) protein, total 6.5 g/dL 6.0-8. 5 Not Available [facility] ([facility]) [address], [place], [address], 08/18/2024 10:14:47 08/17/20 24 08/18/2024 COMP. METAB OLIC PANEL (14) albumin 4.2 g/dL 3.9-4. 9 Not Available [facility] ([facility]) [address], [place], [address], 08/18/2024 10:14:47 08/17/2008/18/2024 COMP. METAB OLIC PANEL (14) globulin, total 2.3 g/dL 1.5-4. 5 Not Available [facility] ([facility]) [address], [place], [address], 08/18/2024 10:14:47 08/17/20 24 08/18/2024 COMP. METAB OLIC PANEL (14) bilirubin, total 0.4 mg/dL 0.0-1. 2 Not Available [facility] ([facility]) [address], [place], [address], 08/18/2024 10:14:47 08/17/20 24 08/18/2024 COMP. METAB OLIC PANEL (14) alkaline phosphatase 67 IU/L 44-121 Not Available [facility] ([facility]) [address], [place], [address], 08/18/2024 10:14:47 08/17/20 24 08/18/2024 COMP. METAB OLIC PANEL (14) AST (SGOT) 16 IU/L 0-40 Not Available [facility] ([facility]) [address], [place], [address], 08/18/2024 10:14:47 08/17/20 24 08/18/2024 COMP. METAB OLIC PANEL (14) ALT (SGPT) 11 IU/L 0-32 Not Available [facility] ([facility]) [address] [place], [address], 08/18/2024 10:14:47 08/17/20 24 08/18/2024 HEMOG LOBIN A1C hemoglobin A1C 5.1 % 4.8-5. 6 Predi abete s: 5.7 - 6.4 Diabe angeles: >6.4 Glyce benjamín contr ol for adult s with diabe angeles: <7.0 Not Available [facility] ([facility]) [address] [place], [address], 08/18/2024 10:14:48 08/17/20 24 08/18/2024 CBC WITH DIFFE RENTI AL/PL ATELE T WBC 2.9 x10e3 /uL 3.4-10 .8 below low normal Not Available [facility] ([facility]) [address] [place], [address], 08/18/2024 10:14:49 08/17/20 24 08/18/2024 CBC WITH DIFFE RENTI AL/PL ATELE T RBC 3.62 x10e6 /uL 3.77-5 .28 below low normal Not Available [facility] ([facility]) [address] [place], [address], 08/18/2024 10:14:49 08/17/20 24 08/18/2024 CBC WITH DIFFE RENTI AL/PL ATELE T hemoglobin 12.5 g/dL 11.1-1 5.9 Not Available [facility] ([facility]) [address] [place], [address], 08/18/2024 10:14:49 08/17/20 24 08/18/2024 CBC WITH DIFFE RENTI AL/PL ATELE T hematocrit 37.8 % 34.0-4 6.6 Not Available [facility] ([facility]) [address] [place], [address], 08/18/2024 10:14:49 08/17/20 24 08/18/2024 CBC WITH DIFFE RENTI AL/PL ATELE T MCV 104 fL 79-97 above high normal Not Available [facility] ([facility]) [address], [place], [address], 08/18/2024 10:14:49 08/17/20 24 08/18/2024 CBC WITH DIFFE RENTI AL/PL ATELE T MCH 34.5 pg 26.6-3 3.0 above high normal Not Available [facility] ([facility]) [address] [place], [address], 08/18/2024 10:14:49 08/17/20 24 08/18/2024 CBC WITH DIFFE RENTI AL/PL ATELE T MCHC 33.1 g/dL 31.5-3 5.7 Not Available [facility] ([facility]) [address] [place], [address], 08/18/2024 10:14:49 08/17/20 24 08/18/2024 CBC WITH DIFFE RENTI AL/PL ATELE T RDW 11.2 % 11.7-1 5.4 below low normal Not Available [facility] ([facility]) [address] [place], [address], 08/18/2024 10:14:49 08/17/20 24 08/18/2024 CBC WITH DIFFE RENTI AL/PL ATELE T platelets 195 x10e3 /uL 150-45 0 Not Available [facility] ([facility]) [address] [place], [address], 08/18/2024 10:14:49 08/17/20 24 08/18/2024 CBC WITH DIFFE RENTI AL/PL ATELE T neutrophils 39 % notest ab. Not Available [facility] ([facility]) [address] [place], [address], 08/18/2024 10:14:49 08/17/20 24 08/18/2024 CBC WITH DIFFE RENTI AL/PL ATELE T lymphs 48 % notest ab. Not Available [facility] ([facility]) [address], [place], [address], 08/18/2024 10:14:49 08/17/20 24 08/18/2024 CBC WITH DIFFE RENTI AL/PL ATELE T monocytes 10 % notest ab. Not Available [facility] ([facility]) [address], [place], [address], 08/18/2024 10:14:49 08/17/20 24 08/18/2024 CBC WITH DIFFE RENTI AL/PL ATELE T eos 2 % notest ab. Not Available [facility] ([facility]) [address], [place], [address], 08/18/2024 10:14:49 08/17/20 24 08/18/2024 CBC WITH DIFFE RENTI AL/PL ATELE T basos 1 % notest ab. Not Available [facility] ([facility]) [address], [place], [address], 08/18/2024 10:14:49 08/17/20 24 08/18/2024 CBC WITH DIFFE RENTI AL/PL ATELE T neutrophils (absolute) 1.1 x10e3 /uL 1.4-7. 0 below low normal Not Available [facility] ([facility]) [address] [place], [address], 08/18/2024 10:14:49 08/17/20 24 08/18/2024 CBC WITH DIFFE RENTI AL/PL ATELE T lymphs (absolute) 1.4 x10e3 /uL 0.7-3. 1 Not Available [facility] ([facility]) [address] [place], [address], 08/18/2024 10:14:49 08/17/20 24 08/18/2024 CBC WITH DIFFE RENTI AL/PL ATELE T monocytes(ab solute) 0.3 x10e3 /uL 0.1-0. 9 Not Available [facility] ([facility]) [address], [place], [address], 08/18/2024 10:14:49 08/17/20 24 08/18/2024 CBC WITH DIFFE RENTI AL/PL ATELE T eos (absolute) 0.1 x10e3 /uL 0.0-0. 4 Not Available [facility] ([facility]) [address], [place], [address], 08/18/2024 10:14:49 08/17/20 24 08/18/2024 CBC WITH DIFFE RENTI AL/PL ATELE T baso (absolute) 0.0 x10e3 /uL 0.0-0. 2 Not Available [facility] ([facility]) [address], [place], [address], 08/18/2024 10:14:49 08/17/20 24 08/18/2024 CBC WITH DIFFE RENTI AL/PL ATELE T immature granulocytes 0 % notest ab. Not Available [facility] ([facility]) [address] [place], [address], 08/18/2024 10:14:49 08/17/20 24 08/18/2024 CBC WITH DIFFE RENTI AL/PL ATELE T immature grans (abs) 0.0 x10e3 /uL 0.0-0. 1 Not Available [facility] ([facility]) [address] [place], [address], 08/18/2024 10:14:49 Result Notes None recorded. Problems Name Problem SNOMED Code Status Onset Date Resolution Date Notes Provider Name and Address Organization Details Recorded Time Body mass index 20-24 - normal 528008307 Active 024 GURJIT Jeong, [facility] 06/11/2024 09:47:15 Problem Notes None recorded. Medical [...] DateTime 176.28 cm 18 /min 20.4 kg/m2 57394.9 3 g 98 % 98 % 63 /min 108 mm[Hg] 78 mm[Hg] Meme Zambrano MA [facility] 09:48:43 Date Recorded Systolic blood pressure Diastolic blood pressure Provider Name and Address Organization Details Last Updated DateTime 06/11/2024 110 mm[Hg] 80 mm[Hg] ELISHA Mccallum Attn: Accounting,[address] [place], [address], [facility] 06/11/2024 10:09:46 Social History Question Answer Notes LastModified by Organizat ion Details LastModified Time Tobacco Smoking Status Never Smoker GURJIT Jeong, [facility] 06/11/2024 09:46:07 Do You Have An Advance [...] Skin Problems N Anemia N Heart Attack ([place]) N Diabetes N Seizures/Epilepsy N Have you had a colonoscopy in the last 1 0 years? N Asthma N Allergies N Have you had a PSA blood test in the las t year? N Hepatitis N Heart Failure N Osteoporosis N Past Encounters Encounter ID Performer Location Encounter Start Date Encounter Closed Date Diagnosis/Indication Diagnosis SNOMED-CT Code Diagnosis ICD10 Code Diagnosis Note [id number] ELISHA Mccallum [facility] [address] [place] [address] 06/11/2024 09:32:22 06/11/2024 10:53:45 Body mass index 20-24 - normal 633222353 Z68.20 BMI is 20.4 Adult [facility] th examination 669124212 Z00.00 Annual wellness exam completed with fasting labs ordered. Cholesterol screening 27 0961054 Z13.220 Fasting lipid panel is due Diabetes m ellitus screening 100289901 Z13.1 Annual A1c screening ordered Thyroid di sorder screening 245065442 Z13.29 Routine thyroid testing ordered Screening mammography 24 057546 Z12.31 Annual mammogram is due Screening for malignant neoplasm of colon 574923939 Z12.11 Patient opts for Cologuard screening method Health Concerns Section Related Observation LastModified by Organization Detai ls LastModified Time None Recorded Concern Status LastModified by Organization Details LastModified Time None Recorded Advance Directives Directive Y: Payers Encounter Date Sequence Insurance Name Policy Number Policy Peña Covered Member ID Peña Member ID Guarantor Name 06/11/2024 1 [facility] Mohamud Sue [id number] Pam Sue Notes Date Note Type Note Provider Name and Address Organization Details Recorded Time 06/11/2024 text/html Patient is here for annual wellness exam and routine labs. She has no new complaints or concerns. ELISHA Mccallum Attn: Accounting,[address], [place], [address], [place] [facility] 06/28/2024 16:19:15
--- OUTSIDE RECORDS SUMMARY | 2024-12-03 12:00 | XMS_ITS | Patient Health Record ---
Author Organization [facility] Address [address] [place] [address] Support Name Relationship Address Phone Pam Sue Guarantor Unknown [phone] Allergies No Known Allergies Reason For Referral No Information Medications Medication SIG (Take, Route, Frequency, Duration) Notes Start Date End Date Status Julia-D Allergy & Congestion 180-240 MG 1 Two Times A Day Oral 05/28/2008 Active Flonase Allergy Relief 50 MCG/ACT 2 sprays each nostril q day Nasal 05/28/2008 Active Ortho-Novum (28) as directed *Reorder from [employer] for eRx and Interaction Alerts* 08/11/2008 Active [...] Insured Coverage Start Date Coverage End Date [facility] [address] [place] [address] [phone] [id number] Pam Sue Self - patient is the insured 1
--- OUTSIDE RECORDS SUMMARY | 2024-12-03 12:00 | XMS_ITS | Data Portability ---
Author Organization [facility] [email or web address], Main Office Address [address] [place] [address] Assessment No assessment recorded. Plan of Treatment Reminders Order Date Submit Date Provider Last Modified By Organization Details Last Modified Time Details Appointments None recorded. Lab lipid panel, serum 2022 023 [place] [facility], [address], [place], [address], 3 09:11:57 CBC w/ auto diff 2022 023 [email or web address] 4 [facility], [address], [place], [address], 3 15:23:32 TSH + free T4, serum 2022 023 [facility], [address], [place], [address], 3 09:11:57 CMP, serum or plasma 2022 023 [place] [facility], [address], [place], [address], 3 09:11:57 vitamin B12 + folate, serum or blood 2022 023 [email or web address] 4 [facility], [address], [place], [address], 3 15:23:33 HbA1c (hemoglobin A1c), blood 2022 023 [email or web address] 4 [facility], [address], [place], [address], 3 15:23:32 Referral None recorded. Procedures None recorded. Surgeries None recorded. Imaging MAMMO, screening, bilateral 2022 023 [place] Not available 14:12:32 US, abdomen 2022 023 [facility], [address], [place], [address], 13:48:41 Medication Orders ondansetron 4 mg disintegrat ing tablet 2022 023 [place] [id number], [address], [place], [place], [id number], 3 10:17:11 Patient TargetsNo targets recorded. Patient [...] with diabe angeles: <7.0 Not Available [facility] ([facility]) [address] [facility] [address], [place], [address], 03/04/2022 03:06:32 03/01/20 22 03/02/2022 VITAM IN B12 AND FOLAT E vitamin B12 509 pg/mL 232-12 45 Not Available [facility] ([facility]) [address] [facility], [place], [address], 03/04/2022 03:06:31 03/01/20 22 03/02/2022 VITAM IN B12 AND FOLAT E folate (folic acid), serum 18.2 NG/mL >3.0 A serum folat e franci ntrat ion of less than 3.1 ng/mL is consi dered to repre sent clini kassandra defic iency . Not Available [facility] ([facility]) [address] [facility] [address], [place], [address], 03/04/2022 03:06:31 03/01/20 22 03/02/2022 LIPID PANEL W/ CHOL/ HDL RATIO cholesterol, total 207 mg/dL 100-19 9 above high normal Not Available [facility] ([facility]) [address] [facility], [place], [address], 03/04/2022 03:06:31 03/01/20 22 03/02/2022 LIPID PANEL W/ CHOL/ HDL RATIO triglyceride s 54 mg/dL 0-149 Not Available [facility] ([facility]) [address] [facility], [place], [address], 03/04/2022 03:06:31 03/01/20 22 03/02/2022 LIPID PANEL W/ CHOL/ HDL RATIO HDL cholesterol 98 mg/dL >39 Not Available [facility] ([facility]) [address] [facility] [address], [place], [address], 03/04/2022 03:06:31 03/01/20 22 03/02/2022 LIPID PANEL W/ CHOL/ HDL RATIO VLDL cholesterol kassandra 10 mg/dL 5-40 Not Available [facility] ([facility]) [address] [facility], [place], [address], 03/04/2022 03:06:31 03/01/20 22 03/02/2022 LIPID PANEL W/ CHOL/ HDL RATIO LDL chol calc ([facility]) 99 mg/dL 0-99 Not Available [facility] ([facility]) [address] [facility] [place], [address], 03/04/2022 03:06:31 03/01/20 22 03/02/2022 LIPID PANEL W/ CHOL/ HDL 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 chol/HDL ratio 2.1 ratio 0.0-4. 4 T. Chol/ HDL Ratio Men Women 1/2 Avg.R isk 3.4 3.3 Avg.R isk 5.0 4.4 2X Avg.R isk 9.6 7.1 3X Avg.R isk 23.4 11.0 Not Available [facility] ([facility]) [address] [facility], [place], [address], 03/04/2022 03:06:31 03/01/20 22 03/02/2022 UA WITH CULTU RE REFLE X specific gravity 1.011 1.005- 1.030 Not Available [facility] ([facility]) [address] [place], [address], 03/04/2022 03:06:30 03/01/20 22 03/02/2022 UA WITH CULTU RE REFLE X pH 6.0 5.0-7. 5 Not Available [facility] ([facility]) [address] [facility], [place], [address], 03/04/2022 03:06:30 03/01/20 22 03/02/2022 UA WITH CULTU RE REFLE X urine-color yellow yellow Not Available [facility] ([facility]) [address] [place], [address], 03/04/2022 03:06:30 03/01/20 22 03/02/2022 UA WITH CULTU RE REFLE X appearance clear clear Not Available [facility] ([facility]) [address] [place], [address], 03/04/2022 03:06:30 03/01/20 22 03/02/2022 UA WITH CULTU RE REFLE X WBC esterase 1+ negati ve abnormal Not Available [facility] ([facility]) [address] [facility], [place], [address], 03/04/2022 03:06:30 03/01/20 22 03/02/2022 UA WITH CULTU RE REFLE X protein negati ve negati ve/tra ce Not Available [facility] ([facility]) [address] [facility], [place], [address], 03/04/2022 03:06:30 03/01/20 22 03/02/2022 UA WITH CULTU RE REFLE X glucose negati ve negati ve Not Available [facility] ([facility]) [address] [facility], [place], [address], 03/04/2022 03:06:30 03/01/20 22 03/02/2022 UA WITH CULTU RE REFLE X ketones trace negati ve abnormal Not Available [facility] ([facility]) [address] [facility], [place], [address], 03/04/2022 03:06:30 03/01/20 22 03/02/2022 UA WITH CULTU RE REFLE X occult blood negati ve negati ve Not Available [facility] ([facility]) [address] [facility], [place], [address], 03/04/2022 03:06:30 03/01/20 22 03/02/2022 UA WITH CULTU RE REFLE X bilirubin negati ve negati ve Not Available [facility] ([facility]) [address] [place], [address], 03/04/2022 03:06:30 03/01/20 22 03/02/2022 UA WITH CULTU RE REFLE X urobilinogen ,semi-qn 0.2 mg/dL 0.2-1. 0 Not Available [facility] ([facility]) [address] [place], [address], 03/04/2022 03:06:30 03/01/20 22 03/02/2022 UA WITH CULTU RE REFLE X nitrite, urine negati ve negati ve Not Available [facility] ([facility]) [address] [facility], [place], [address], 03/04/2022 03:06:30 03/01/20 22 03/02/2022 UA WITH CULTU RE REFLE X microscopic examination see below: Micro scopi c was indic ated and was perfo rmed. Not Available [facility] ([facility]) [address] [facility], [place], [address], 03/04/2022 03:06:30 03/01/20 22 03/02/2022 UA WITH CULTU RE REFLE X WBC 0-5 /hpf 0 - 5 Not Available [facility] ([facility]) [address] [facility], [place], [address], 03/04/2022 03:06:30 03/01/20 22 03/02/2022 UA WITH CULTU RE REFLE X RBC 0-2 /hpf 0 - 2 Not Available [facility] ([facility]) [address] [facility], [place], [address], 03/04/2022 03:06:30 03/01/20 22 03/02/2022 UA WITH CULTU RE REFLE X epithelial cells (non renal) 0-10 /hpf 0 - 10 Not Available [facility] ([facility]) [address] [facility], [place], [address], 03/04/2022 03:06:30 03/01/20 22 03/02/2022 UA WITH CULTU RE REFLE X 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 Available [facility] ([facility]) [address] [facility], [place], [address], 03/04/2022 03:06:30 03/01/20 22 03/02/2022 UA WITH CULTU RE REFLE X casts none seen /lpf none seen Not Available [facility] ([facility]) [address], [place], [address], 03/04/2022 03:06:30 03/01/20 22 03/02/2022 UA WITH CULTU RE REFLE X 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 Not Available [facility] ([facility]) [address], [place], [address], 03/04/2022 03:06:30 03/01/20 22 03/02/2022 UA WITH CULTU RE REFLE X 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 Not Available [facility] ([facility]) [address], [place], [address], 03/04/2022 03:06:30 03/01/20 22 03/02/2022 UA WITH CULTU RE REFLE X 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 Not Available [facility] ([facility]) [address] [facility], [place], [address], 03/04/2022 03:06:30 03/01/20 22 03/02/2022 UA WITH CULTU RE REFLE X mucus threads 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 Not Available [facility] ([facility]) [address] [facility], [place], [address], 03/04/2022 03:06:30 03/01/20 22 03/02/2022 UA WITH CULTU RE REFLE X bacteria none seen none seen/f ew Not Available [facility] ([facility]) [address] [facility], [place], [address], 03/04/2022 03:06:30 03/01/20 22 03/02/2022 UA WITH CULTU RE REFLE X 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 Not Available [facility] ([facility]) [address], [place], [address], 03/04/2022 03:06:30 03/01/20 22 03/02/2022 UA WITH CULTU RE REFLE X trichomonas 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 Not Available [facility] ([facility]) [address] [place], [address], 03/04/2022 03:06:30 03/01/20 22 03/03/2022 UA WITH CULTU RE REFLE X urine culture, routine final report Not Available [facility] ([facility]) [address] [facility], [place], [address], 03/04/2022 03:06:30 03/01/20 22 03/03/2022 UA WITH CULTU RE REFLE X result 1 commen t Mixed uroge nital iftikhar 10,00 0-25, 000 colon y formi ng units per mL Not Available [facility] ([facility]) [address] [place], [address], 03/04/2022 03:06:30 03/01/20 22 03/02/2022 CBC WITH DIFFE RENTI AL/PL ATELE T WBC 3.9 x10e3 /uL 3.4-10 .8 Not Available [facility] ([facility]) [address] [place], [address], 03/04/2022 03:06:30 03/01/20 22 03/02/2022 CBC WITH DIFFE RENTI AL/PL ATELE T RBC 3.97 x10e6 /uL 3.77-5 .28 Not Available [facility] ([facility]) [address] [place], [address], 03/04/2022 03:06:30 03/01/20 22 03/02/2022 CBC WITH DIFFE RENTI AL/PL ATELE T hemoglobin 13.2 g/dL 11.1-1 5.9 Not Available [facility] ([facility]) [address] [facility], [place], [address], 03/04/2022 03:06:30 03/01/20 22 03/02/2022 CBC WITH DIFFE RENTI AL/PL ATELE T hematocrit 39.9 % 34.0-4 6.6 Not Available [facility] ([facility]) [address] [facility], [place], [address], 03/04/2022 03:06:30 03/01/20 22 03/02/2022 CBC WITH DIFFE RENTI AL/PL ATELE T MCV 101 fL 79-97 above high normal Not Available [facility] ([facility]) [address] [place], [address], 03/04/2022 03:06:30 03/01/20 22 03/02/2022 CBC WITH DIFFE RENTI AL/PL ATELE T MCH 33.2 pg 26.6-3 3.0 above high normal Not Available [facility] ([facility]) [address] [place], [address], 03/04/2022 03:06:30 03/01/20 22 03/02/2022 CBC WITH DIFFE RENTI AL/PL ATELE T MCHC 33.1 g/dL 31.5-3 5.7 Not Available [facility] ([facility]) [address] [place], [address], 03/04/2022 03:06:30 03/01/20 22 03/02/2022 CBC WITH DIFFE RENTI AL/PL ATELE T RDW 11.7 % 11.7-1 5.4 Not Available [facility] ([facility]) [address] [facility], [place], [address], 03/04/2022 03:06:30 03/01/20 22 03/02/2022 CBC WITH DIFFE RENTI AL/PL ATELE T platelets 192 x10e3 /uL 150-45 0 Not Available [facility] ([facility]) [address] [facility], [place], [address], 03/04/2022 03:06:30 03/01/20 22 03/02/2022 CBC WITH DIFFE RENTI AL/PL ATELE T neutrophils 48 % not estab. Not Available [facility] ([facility]) [address] [facility], [place], [address], 03/04/2022 03:06:30 03/01/20 22 03/02/2022 CBC WITH DIFFE RENTI AL/PL ATELE T lymphs 39 % not estab. Not Available [facility] ([facility]) [address] [facility], [place], [address], 03/04/2022 03:06:30 03/01/20 22 03/02/2022 CBC WITH DIFFE RENTI AL/PL ATELE T monocytes 10 % not estab. Not Available [facility] ([facility]) [address] [facility], [place], [address], 03/04/2022 03:06:30 03/01/20 22 03/02/2022 CBC WITH DIFFE RENTI AL/PL ATELE T eos 2 % not estab. Not Available [facility] ([facility]) [address] [facility], [place], [address], 03/04/2022 03:06:30 03/01/20 22 03/02/2022 CBC WITH DIFFE RENTI AL/PL ATELE T basos 1 % not estab. 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 0 Not Available [facility] ([facility]) [address] [place], [address], 03/04/2022 03:06:30 03/01/20 22 03/02/2022 CBC WITH DIFFE RENTI AL/PL ATELE T lymphs (absolute) 1.5 x10e3 /uL 0.7-3. 1 Not Available [facility] ([facility]) [address] [place], [address], 03/04/2022 03:06:30 03/01/20 22 03/02/2022 CBC WITH DIFFE RENTI AL/PL ATELE T monocytes(ab solute) 0.4 x10e3 /uL 0.1-0. 9 Not Available [facility] ([facility]) [address] [place], [address], 03/04/2022 03:06:30 03/01/20 22 03/02/2022 CBC WITH DIFFE RENTI AL/PL ATELE T eos (absolute) 0.1 x10e3 /uL 0.0-0. 4 Not Available [facility] ([facility]) [address] [place], [address], 03/04/2022 03:06:30 03/01/20 22 03/02/2022 CBC WITH DIFFE RENTI AL/PL ATELE T baso (absolute) 0.0 x10e3 /uL 0.0-0. 2 Not Available [facility] ([facility]) [address] [place], [address], 03/04/2022 03:06:30 03/01/20 22 03/02/2022 CBC WITH DIFFE RENTI AL/PL ATELE T immature granulocytes 0 % not estab. Not Available [facility] ([facility]) [address] [facility], [place], [address], 03/04/2022 03:06:30 03/01/20 22 03/02/2022 CBC WITH DIFFE RENTI AL/PL ATELE T immature grans (abs) 0.0 x10e3 /uL 0.0-0. 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 Not Available [facility] ([facility]) [address] [place], [address], 03/04/2022 03:06:30 03/01/20 22 03/02/2022 TSH+F REE T4 TSH 1.900 uIU/m L 0.450- 4.500 Not Available [facility] ([facility]) [address] [place], [address], 03/04/2022 03:06:30 03/01/20 22 03/02/2022 TSH+F REE T4 T4,free(dire ct) 1.29 NG/dL 0.82-1 .77 Not Available [facility] ([facility]) [address] [place], [address], 03/04/2022 03:06:30 03/01/20 22 03/02/2022 CMP14 +EGFR glucose 98 mg/dL 65-99 Not Available [facility] ([facility]) [address] [facility] [place], [address], 03/04/2022 03:06:29 03/01/20 22 03/02/2022 CMP14 +EGFR BUN 11 mg/dL 6-24 Not Available [facility] ([facility]) [address] [facility] [place], [address], 03/04/2022 03:06:29 03/01/20 22 03/02/2022 CMP14 +EGFR creatinine 0.77 mg/dL 0.57-1 .00 Not Available [facility] ([facility]) [address] [facility] [place], [address], 03/04/2022 03:06:29 03/01/20 22 03/02/2022 CMP14 +EGFR eGFR 98 mL/mi n/1.7 3 >59 Not Available [facility] ([facility]) [address] [facility] [place], [address], 03/04/2022 03:06:29 03/01/20 22 03/02/2022 CMP14 +EGFR BUN/creatini ne ratio 14 9-23 Not Available [facility] ([facility]) [address] [facility] [place], [address], 03/04/2022 03:06:29 03/01/20 22 03/02/2022 CMP14 +EGFR sodium 137 mmol/ L 134-14 4 Not Available [facility] ([facility]) [address] [facility] [place], [address], 03/04/2022 03:06:29 03/01/20 22 03/02/2022 CMP14 +EGFR potassium 4.2 mmol/ L 3.5-5. 2 Not Available [facility] ([facility]) [address] [place], [address], 03/04/2022 03:06:29 03/01/20 22 03/02/2022 CMP14 +EGFR chloride 100 mmol/ L 96-106 Not Available [facility] ([facility]) [address] [facility] [place], [address], 03/04/2022 03:06:29 03/01/20 22 03/02/2022 CMP14 +EGFR carbon dioxide, total 24 mmol/ L 20-29 Not Available [facility] ([facility]) [address] [facility] [place], [address], 03/04/2022 03:06:29 03/01/20 22 03/02/2022 CMP14 +EGFR calcium 9.3 mg/dL 8.7-10 .2 Not Available [facility] ([facility]) [address] [facility] [place], [address], 03/04/2022 03:06:29 03/01/20 22 03/02/2022 CMP14 +EGFR protein, total 6.9 g/dL 6.0-8. 5 Not Available [facility] ([facility]) [address] [facility] [place], [address], 03/04/2022 03:06:29 03/01/20 22 03/02/2022 CMP14 +EGFR albumin 4.6 g/dL 3.8-4. 8 Not Available [facility] ([facility]) [address] [place], [address], 03/04/2022 03:06:29 03/01/20 22 03/02/2022 CMP14 +EGFR globulin, total 2.3 g/dL 1.5-4. 5 Not Available [facility] ([facility]) [address] [place], [address], 03/04/2022 03:06:29 03/01/20 22 03/02/2022 CMP14 +EGFR A/G ratio 2.0 1.2-2. 2 Not Available [facility] ([facility]) [address] [facility], [place], [address], 03/04/2022 03:06:29 03/01/20 22 03/02/2022 CMP14 +EGFR bilirubin, total 0.7 mg/dL 0.0-1. 2 Not Available [facility] ([facility]) [address] [facility], [place], [address], 03/04/2022 03:06:29 03/01/20 22 03/02/2022 CMP14 +EGFR alkaline phosphatase 83 IU/L 44-121 Not Available [facility] ([facility]) [address] [facility], [place], [address], 03/04/2022 03:06:29 03/01/20 22 03/02/2022 CMP14 +EGFR AST (SGOT) 13 IU/L 0-40 Not Available [facility] ([facility]) [address] [facility], [place], [address], 03/04/2022 03:06:29 03/01/20 22 03/02/2022 CMP14 +EGFR ALT (SGPT) 11 IU/L 0-32 Not Available [facility] ([facility]) [address] [facility], [place], [address], 03/04/2022 03:06:29 04/25/20 23 04/25/2023 US, abdom en No observ ation record ed. [email or web address] [facility] [address], [place], [address], 10/01/2023 17:00:18 06/06/20 23 06/06/2023 MAMMjessee Hernandez bilat eral No observ ation record ed. [email or web address] Not Available 2023 17:00:19 Result Notes None recorded. Problems Name Problem SNOMED Code Status Onset Date Resolution Date Notes Provider Name and Address Organization Details Recorded Time Blood chemistry outside reference range 963946899 Active Not Available [facility] 03/01/202 3 18:02:21 Problem Notes None recorded. Procedures Surgical History Date Name Laterality Status Provider Name and Address Organization Details Recorded Time [place] [facility] completed Not Available [facility] 11/28/2022 18:01:25 Imaging Results Imaging Date Name Status LastModified by Organiz ation Details LastModified Time 04/25/2023 US, abdomen completed [email or web address] [facility] [address], [place], [address], 10/01/2023 17:00:18 06/06/2023 MAMMO, screening, bilateral completed [...] (80mg) injectio n IM 03/31 [place]: [id number] 69- Not Available Not Available Not Available Vitals Date Recorded Body mass index (BMI) Body height Oxygen saturation Oxygen saturation in Arterial blood by Pulse oximetry Heart rate Body temperature Body weight Systolic blood pressure Diastolic blood pressure Provider Name and Address Organization Details Last Updated DateTime 1 22.7 kg/m2 177.8 cm 99 % 99 % 79 /min 97.8 [degF] 52020.6 7 g 110 mm[Hg] 60 mm[Hg] Not Available [facility] 3 18:01:51 Date Recorded Body mass index (BMI) Body height Oxygen saturation Oxygen saturation in Arterial blood by Pulse oximetry Heart rate Respiratory rate Body temperature Body weight Systolic blood pressure Diastolic blood pressure Provider Name and Address Organization Details Last Updated DateTime 2 21.1 kg/m2 177.8 cm 99 % 99 % 74 /min 16 /min 97.8 [degF] 98157.3 6 g 120 mm[Hg] 72 mm[Hg] Not Available [facility] 3 18:01:51 Date Recorded Body weight Body mass index (BMI) Body height Body temperature Heart rate Oxygen saturation Oxygen saturation in Arterial blood by Pulse oximetry Systolic blood pressure Diastolic blood pressure Provider Name and Address Organization Details Last Updated DateTime 3 25098.1 5 g 20.2 kg/m2 175.26 cm 97.5 [degF] 73 /min 98 % 98 % 118 mm[Hg] 62 mm[Hg] Lacy Harvey RN [place] [facility] 3 10:00:10 Social History Question Answer Notes LastModified by Organizat ion Details LastModified Time Tobacco Smoking Status Never Smoker Not Available [facility] 11/28/2022 18:01:19 What Is Your Level Of Alcohol Consumption? Moderate [id number] Information not available 11/28/2022 What Is Your Level Of Caffeine Consumption? Moderate [id number] Information not available 11/28/2022 How Much Tobacco Do You Chew? None [id number] Information not available 11/28/2022 In The 14 Days Before Symptom Onset, Have You Had Close Contact With A Laboratory-confir med COVID-19 While That Case Was Ill? No [id number] Information not available 11/28/2022 In The 14 Days Before Symptom Onset, Have You Had Close Contact With A Person Who Is Under Investigation For COVID-19 While That Person Was Ill? No [id number] Information not available 11/28/2022 Are You Currently Employed? No [id number] Information not available 04/19/2023 What Type Of Diet Are You Following? REGULAR [id number].[id number] Information not available 11/28/2022 Which Illicit Or Recreational Drugs Have You Used? None MIGRATION.[id number] Information not available 11/28/2022 Do You Or Have You Ever Used E-cigarettes Or Vape? Never Used Electronic Cigarettes MIGRATION.[id number] Information not available 11/28/2022 What Is Your Occupation? [employer] MIGRATION.[id number] 4611 Information not available 11/28/2022 Have There Been Any Changes To Your Family Or Social Situation? No MIGRATION.[id number] 2833 Information not available 11/28/2022 Are There Any Guns Present In Your Home? No MIGRATION.[id number] 5052 Information not available 11/28/2022 Do You Use Insect Repellent Routinely? No MIGRATION.088325 3652 Information not available 11/28/2022 Do You Use Your Seat Belt Or Car Seat Routinely? Yes MIGRATION.[id number] 0207 Information not available 11/28/2022 Do You Have Smoke And Carbon Monoxide Detectors In Your Home? Yes MIGRATION.381856 7432 Information not available 11/28/2022 Do You Or Have You Ever Used Smokeless Tobacco? Never Used Smokeless Tobacco MIGRATION.354836 4423 Information not available 11/28/2022 How Much Tobacco Do You Smoke? No MIGRATION.381346 9119 Information not available 11/28/2022 Do You Use Any Illicit Or Recreational Drugs? No MIGRATION.856955 5280 Information not available 11/28/2022 Do You Use Sunscreen Routinely? Yes MIGRATION.045466 9827 Information not available 11/28/2022 How Many Years Have You Smoked Tobacco? 0 MIGRATION.853985 0416 Information not available 11/28/2022 Have You Recently Traveled Abroad? No MIGRATION.342624 3483 Information not available 11/28/2022 Do You Have Any Dietary Restrictions? No MIGRATION.947039 2566 Information not available 11/28/2022 Do You Or Have You Ever Used Any Other Forms Of Tobacco Or Nicotine? No MIGRATION.276640 5089 Information not available 11/28/2022 Sex: Unknown Functional Status Question Answer Note LastModified by Organizat ion Details LastModified Time What is your exercise level? Moderate [id number] Information not available 11/28/2022 Mental Status None recorded. Family History Relationship Description Onset Age of this Age Resolved Age Notes LastModified by Organization Details LastModified Time Maternal Grandfather Malignant tumor of lung [id number] Not available 11/28/2022 18:01:25 Father No current problems or disability MIGRATION.[id number] Not available 11/28/2022 18:01:25 Mother No current problems or disability MIGRATION.[id number] Not available 11/28/2022 18:01:26 Medical History No medical history recorded. Gynecological History Statement/Question Response How many live births 2 Date of Last Pap 01/24/2016 Sexually Active? Y Obstetrics History GPAL:G 3 P 0 0 0 2 Type Value Living 2 Total 3 Past Encounters Encounter ID Performer Location Encounter Start Date Encounter Closed Date Diagnosis/Indication Diagnosis SNOMED-CT Code Diagnosis ICD10 Code Diagnosis Note [id number] [facility] [address] [place] [address] 03/31/2021 00:00:00 04/16/2021 00:27:22 [id number] [facility] [address] [place] [address] 04/18/2022 00:00:00 04/18/2022 09:59:07 [id number] ELISHA Mccallum [facility] [address] [place] [address] 04/22/2023 09:53:19 04/22/2023 10:20:40 Adult health examination 476897433 Z00.00 well exam completed. labs ordered. Screening mammography 24 956628 Z12.31 mammogram ordered Cholesterol screening 27 0148576 Z13.220 fasting labs due. Diabetes m ellitus screening 732397924 Z13.1 Long-term drug therapy 127402012 Z79.899 Family his tory of malignant neoplasm of pancreas 439993790 Z80.0 fam hx of pancreatic cancer in her Mother's identical twin ( her aunt). Preventive procedure 169 621525 Z29.9 Rx for zofran for upcoming trip this winter to [place]. Health Concerns Section Related Observation LastModified by Organization Detai ls LastModified Time None Recorded Concern Status LastModified by Organization Details LastModified Time None Recorded Advance Directives Directive None Recorded Payers Encounter Date Sequence Insurance Name Policy Number Policy Peña Covered Member ID Peña Member ID Guarantor Name 04/22/2023 1 [facility] [id number] Mohamud Sue [id number] Pam Sue Notes Date Note Type Note Provider Name and Address Organization Details Recorded Time 03/31/2021 text/html Generic HPI TemplateReported bypatient.Notes:Here today for her wellness exam, no complaints, doing fine. Not Available [facility] 04/16/2021 00:27:22 04/18/2022 text/html Generic HPI TemplateReported bypatient.Notes:Pt is here for a wellness. No chronic problems. No complaints today. Not Available [facility] 04/18/2022 09:59:07 04/22/2023 text/html Generic HPI TemplateReported bypatient.Notes:no c/o. feeling great, working out, eating healthy, due for labs. wellness ELISHA Mccallum [address] [address], [place], [address], [facility] 04/22/2023 21:39:42 OBGyn Episode No OBEpisode recorded.
--- OUTSIDE RECORDS SUMMARY | 2024-12-03 12:00 | XMS_ITS | Clinical Summary ---
Author Organization [facility] Marck mena 2022 Address [address] [facility] 3[address] [place] [address] Phone Care Team Providers Care Svp Group Director Name Role Phone John Jansen MD Primary Care Provider [phone] Allergies No known active allergies Medications spironolactone (ALDACTONE) 100 mg tablet Take 100 mg by mouth daily. Active Active Problems No known active problems Encounters Date Type Department Care Team Description 11/25/2024 Orders Only [facility] Oncology and Hematology - [place] [address] [place] [address] Kwaku Sidhu MD 11/25/2024 Abstract [facility] On[facility] H[facility]ology [address] [place] [address] Kwaku Sidhu MD 11/24/2024 External Device Data ST[facility] ABSTRACTION Provider, Abstract 11/24/2024 External Device Data [facility] Provider, Abstract 11/24/2024 External Device Data [facility]STRACTION Provider, Abstract 11/23/2024 10:30 AM VIDEO INTERN Office Visit [facility] Oncology and Hematology [facility] [address] [place] [address] Kwaku Sidhu MD Leukopenia, unspecified type (Primary [...] on file Legal Sex Female 6:10 AM VIDEO INTERN Gender Identity Not on file Sexual Orientation Not on file Last Filed Vital Signs Vital Sign Reading Time Taken Comments Blood Pressure 100/61 11/23/2024 10:10 AM VIDEO INTERN Pulse 79 11/23/2024 10:10 AM VIDEO INTERN Temperature 36.6 C (97.9 F) 11/23/2024 10:10 AM VIDEO INTERN Respiratory Rate 17 11/23/2024 10:1 0 AM VIDEO INTERN Oxygen Saturation 98% 11/23/2024 10: 10 AM VIDEO INTERN Inhaled Oxygen Concentration - - Weight 66.6 kg (146 lb 12.8 oz) 025 10:10 AM VIDEO INTERN Height 177.8 cm (5' 10 ) 11/23/2024 10: 10 AM VIDEO INTERN Body Mass Index 21.06 11/23/2024 10:10 AM VIDEO INTERN Plan of Treatment Upcoming Encounters Date Type Department Care Team (Late st Contact Info) Description 12/14/2024 1:00 PM CDT Office Visit [facility] Oncology and Hematology [facility] [address] [facility] [address] [place] [address] Kwaku Sidhu MD [address] [facility] [address] [place] [address] Health Maintenance Due Date Last [...] on patient's age to complete this topic Procedures Procedure Name Priority Date/Time Associated Diagnosis Comments COMPREHENSIVE METABOLIC PANEL Routine 11/23/2024 10:54 AM VIDEO INTERN from Last 3 Months Results * COMPREHENSIVE METABOLIC PANEL (11/23/2024 10:54 AM VIDEO INTERN) Blood us Kwaku Sidhu MD CHEMISTRY ORDERABLES Final Resu lt from Last 3 Months Insurance [facility] [place] [address] [facility] [id number] Member Subscriber Plan / Payer (Ef fective 2022-Present) Name:ADITYA MARKS Relation to Subscriber:Spouse Name:Vikram Mohamud G Date of :1976 (Home) [phone] (Work) Address: [address] [place] [address] Payer ID:[id number] (NAIC) Type:O Address: [facility] [id number] [place] [address] [facility] [place] [address] Care Teams Svp Group Director Relationship Specialty Start Date End Date John Jansen MD [address] [place] [address] PCP - General Family Practice 05/09/12
--- OUTSIDE RECORDS SUMMARY | 2024-12-03 12:01 | XMS_ITS | Referral Summary ---
Author Organization [facility] [employer] Address [address] [place] [address] Care Team Providers Care Spray Foam Installer Name Role Phone John Jansen MD Primary Care Provider [phone] Source Comments [facility] [employer],non-owned Affiliates and Associated Physician Practices is amultiple site organization consisting of ambulatory clinics and hospital sitesin [place], [place], [place] and [place]. This disclosure is being madepursuant to the Care Everywhere program and may not contain all information available regarding this patient. Last updated 18.[facility] [employer] Allergies No known active allergies Medications * [...] Comments Blood Pressure 102/62 09/21/2014 2:05 AM AERODYNAMICS ENGINEER Pulse 78 09/21/2014 2:05 AM AERODYNAMICS ENGINEER Temperature 37 C (98.6 F) 09/21/2014 2:05 AM AERODYNAMICS ENGINEER Respiratory Rate 16 09/21/2014 2:05 AM AERODYNAMICS ENGINEER Oxygen Saturation 99% 09/21/2014 2:05 AM AERODYNAMICS ENGINEER Inhaled Oxygen Concentration - - Weight 63.5 kg (140 lb) 09/20/2014 9:51 PM AERODYNAMICS ENGINEER Height 177.8 cm (5' 10 ) 09/20/2014 9:51 PM AERODYNAMICS ENGINEER Body Mass Index 20.09 09/20/2014 9:51 PM AERODYNAMICS ENGINEER Plan of Treatment Not on file Care Teams Spray Foam Installer Relationship Specialty Start Date End Date John Jansen MD [address] [place] [id number] PCP - General Family Medicine 09/20/14
--- OUTSIDE RECORDS SUMMARY | 2024-12-03 12:01 | XMS_ITS ---
Author Organization [facility] Address [address] [place] [address] Care Team Providers Care Ehs Engineer Name Role Phone zzzzMigration, zzzzProvider Unavailable Unav ailable REASON FOR VISIT EMR-[facility] Encounters Encounter Location Date Provider Diagnosis [facility] [address] [place] [address] 07/20/2023 zzzzProvider zzzzMigration Plan Of Treatment No Information Progress Notes * Pam MARKS EDOB:[birth year] (44 yo F)Acc No.[id number]:07/20/2023 Patient: Ivy JAYA Pam Buenrostro :1980 A ge:43 Y S ex:Female Address:[address] [place] [address], [address] Subjective: * Chief Complaints: * E MR-Ventura * Medical History: * Surgical History: * Hospitalization/Major Diagno stic Procedure: * Medications: Objective: * Vitals: * Physical Examination: Assessment: Plan: * Treatment: * Procedure Codes: * * Date:
--- OUTSIDE RECORDS SUMMARY | 2024-12-03 12:01 | XMS_ITS | Patient Health Summary ---
Author Organization [facility] [email or web address] Address [address] [place] [address] Care Team Providers Care Riveter Helper Name Role Phone John Jansen MD Primary Care Provider [phone] Note from [facility],non-owned Affiliates and Associated Physician Practices is amultiple site organization consisting of ambulatory clinics and hospital sitesin [place], [place], [place] and [place]. This disclosure is being madepursuant to the Care Everywhere program and may not contain all information available regarding this patient. Last updated 18.[facility] [email or web address] Allergies No known active allergies Medications * [...] Comments Blood Pressure 102/62 09/21/2014 2:05 AM PAINT STOCK CLERK Pulse 78 09/21/2014 2:05 AM PAINT STOCK CLERK Temperature 37 C (98.6 F) 09/21/2014 2:05 AM PAINT STOCK CLERK Respiratory Rate 16 09/21/2014 2:05 AM PAINT STOCK CLERK Oxygen Saturation 99% 09/21/2014 2:05 AM PAINT STOCK CLERK Inhaled Oxygen Concentration - - Weight 63.5 kg (140 lb) 09/20/2014 9:51 PM PAINT STOCK CLERK Height 177.8 cm (5' 10 ) 09/20/2014 9:51 PM PAINT STOCK CLERK Body Mass Index 20.09 09/20/2014 9:51 PM PAINT STOCK CLERK Procedures * ED LACERATION REPAIR(Performed 09/21/2014) Performed [...] * ED LACERATION REPAIR (09/21/2014 1:56 AM PAINT STOCK CLERK) Narrative Jael Porter MD - 09/21/2014 1:56 AM PAINT STOCK CLERK Jael Porter MD 09/21/2014 1:56 AM Provider contact with the patient: 09/20/2014 22:38 Pamkary GoldsteinSue [id number] [facility] EMERGENCY DEPARTMENT History Chief Complaint Patient presents with LOSS OF CONSCIOUSNESS pt was found in [facility] after falling over Laceration Head 1 inch lac on left side of head Chief complaint narrative was entered by triage nurse, not by physician. HPI Comments: 11:13 PM: Friend states that the friend went to the bathroom at the restaurant and the residential appraiser came to report that the pt had [...] 44.0-73.0 % Lymph 44.1 (*) 20.0-43.0 % [place] 6.2 5.0-13.0 % Eos 5.7 0.0-6.0 % Baso 0.9 0.0-2.0 % Immature Grans 0.2 0-1 % Neutro Abs 1.86 (*) 2.01-7.14 x10^9/L Lymph Abs 1.92 1.07-3.94 x10^9/L [place] Abs 0.27 0.26-1.07 x10^9/L Eosin Abs 0.25 [...] Yellow, Dark Yellow Clarity UA Clear Specific [place] UA 1.018 1.005-1.030 pH UA 7.0 5.0-8.0 [...] patient to follow-up with: John Jansen MD [address] [place] [address] [place] [address] Call in 1 day Dale Julio MD [address] [place] [address] Call in 1 day Disposition: Discharged I have reviewed the information recorded by the scribe and agree with its accuracy and contents--Dr. Porter 09/21/2014 1:56 AM Transcribed by Tali Stevens acting scribe on behalf of Dr. Porter 09/21/2014 12:57 AM Jael oPrter MD PROCEDURE/MINOR SURG ICAL ORDERABLES * HCG URINE QUALITATIVE - POINT OF CARE (IP) (09/21/2014 12:53 AM PAINT STOCK CLERK) HCG Qual Urine Negative Negative [facility] QC Verified Yes Yes [facility] POC T TESTING Urine specimen (specimen) URINE / Unknown 09/21/2014 12:53 AM PAINT STOCK CLERK Jael Porter MD LAB - POINT OF CARE ORDERABLES Performing Organization Address [facility]/State/ZIP Co de Phone Number [facility] [address] * (ABNORMAL) URINALYSIS MICROSCOPIC ONLY W/REFLEX CULTURE (09/21/2014 12:49 AM PAINT STOCK CLERK) RBC UA 0-2 0-2, 2-5 # /hpf 09/21/2014 2:11 AM PAINT STOCK CLERK [facility] WBC UA 5-10(A) 0-2, 2-5 # /hpf 09/21/2014 2:11 AM [facility] Bacteria UA 2+(A) None Seen 09/21/2014 2:11 AM [facility] Epithelial Cell UA 2-5 0-2, 2-5 09/21/2014 2:11 AM [facility] Urine URINE SPECIMEN OBTAINED BY CLEAN CATCH PROCEDURE / Unknown Collection / Unknown 09/21/2014 12:49 AM PAINT STOCK CLERK 09/21/2014 1:41 AM PAINT STOCK CLERK Jael Porter MD LAB - URINALYSIS ORD ERABLES [facility] [address] [place] [address] * (ABNORMAL) URINALYSIS ROUTINE W/REFLEX TO CULTURE (09/21/2014 12:49 AM PAINT STOCK CLERK) Color UA Yellow Straw, Yellow, Dark Yellow 09/21/2014 1:51 AM [facility] Clarity UA Clear 09/21/2014 1:51 AM [facility] Specific [place] UA 1.018 1.005 - 1.030 09/21/2014 1:51 AM [facility] pH UA 7.0 5.0 - 8.0 pH 09/21/2014 1:51 AM [facility] Protein UA Trace(A) Negative 09/21/2014 1:51 AM PAINT STOCK CLERK [facility] Blood UA Negative Negative 09/21/2014 1:51 AM PAINT STOCK CLERK [facility] Leukocyte UA 1+(A) Negative 09/21/2014 1:51 AM PAINT STOCK CLERK [facility] Nitrite UA Negative Negative 09/21/2014 1:51 AM PAINT STOCK CLERK [facility] Glucose UA Negative Negative 09/21/2014 1:51 AM PAINT STOCK CLERK [facility] Ketone UA Negative Negative 09/21/2014 1:51 AM PAINT STOCK CLERK [facility] Bilirubin UA Negative Negative 09/21/2014 1:51 AM [facility] Urobilinogen UA 0.2 0.1 - 1.0 EU/dL 09/21/2014 1:51 AM [facility] WBC UA Auto 10-20(A) 0-2, 2-5 #/hpf 09/21/2014 1:51 AM PAINT STOCK CLERK [facility] RBC UA Auto 2-5 0-2, 2-5 #/hpf 09/21/2014 1:51 AM PAINT STOCK CLERK [facility] Epithelial Cell UA Auto 5-10(A) 0-2, 2-5 #/hpf 09/21/2014 1:51 AM PAINT STOCK CLERK [facility] Hyaline Casts UA Auto 2-5(A) 0 - 2 #/lpf 09/21/2014 1:51 AM [facility] Reflex Status Culture to follow 09/21/2014 1:51 AM [facility] Urine URINE SPECIMEN OBTAINED BY CLEAN CATCH PROCEDURE / Unknown Collection / Unknown 09/21/2014 12:49 AM PAINT STOCK CLERK 09/21/2014 1:41 AM PAINT STOCK CLERK Jael Porter MD LAB - URINALYSIS ORD ERABLES Performing Organization Address City/[facility]/ZIP Co de Phone Number [facility] [address] [place] [address] * CULTURE URINE (09/21/2014 12:49 AM PAINT STOCK CLERK) Culture No Growth (<1,000 CFU/mL) BRUNA 09/23/2014 9:42 AM PAINT STOCK CLERK [facility]CRO[facility] Urine URINE SPECIMEN OBTAINED BY CLEAN CATCH PROCEDURE / Unknown Collection / Unknown 09/21/2014 12:49 AM PAINT STOCK CLERK 09/21/2014 1:41 AM PAINT STOCK CLERK Jael Porter MD LAB - MICROBIOLOGY O RDERABLES [facility] [address] * TROPONIN I (09/20/2014 10:29 PM PAINT STOCK CLERK) Troponin I <0.015 0.000 - 0.049 ng/mL 09/20/2014 11:53 PM [facility] Blood BLOOD SPECIMEN / Unknown Venipuncture / Unknown 09/20/2014 10:29 PM PAINT STOCK CLERK 09/20/2014 11:32 PM [facility]ATORY - 09/20/2014 11:53 PM [facility] Note: Diagnosis of myocardial infarction requires symptoms [...] MD LAB - CHEMISTRY JUAN DANIEL [facility] Organization Address City/State/ZIP Co de Phone Number [facility] [address] [place], [place] [id number] * (ABNORMAL) CBC W AUTO DIFFERENTIAL (09/20/2014 10:29 PM [facility]) WBC 4.4 4.4 - 10.7 x10^9/L 09/20/2014 10:42 PM [facility] RBC 3.60(L) 3.80 - 5.20 x10^12/L 09/20/2014 10:42 PM [facility] Hemoglobin 12.3 12.0 - 15.6 gm/dL 09/20/2014 10:42 PM [facility] Hematocrit 34.8(L) 35.9 - 45.5 % 09/20/2014 10:42 PM [facility] MCV 96.7 80.7 - 98.3 fl 09/20/2014 10:42 PM [facility] MCH 34.2(H) 26.7 - 34.0 pg 09/20/2014 10:42 PM [facility] MCHC 35.3 30.8 - 35.9 gm/dL 09/20/2014 10:42 PM [facility] Platelet Count 161 153 - 416 x10^9/L 09/20/2014 10:42 PM [facility] RDW-CV 12.3 12.1 - 14.9 % 09/20/2014 10:42 PM [facility] MPV 9.3(L) 9.4 - 12.9 fl 09/20/2014 10:42 PM [facility] Neutrophils % 42.9(L) 44.0 - 73.0 % 09/20/2014 10:42 PM [facility] Lymphocytes % 44.1(H) 20.0 - 43.0 % 09/20/2014 10:42 PM [facility] Monocytes % 6.2 5.0 - 13.0 % 09/20/2014 10:42 PM [facility] Eosinophils % 5.7 0.0 - 6.0 % 09/20/2014 10:42 PM [facility] Basophils % 0.9 0.0 - 2.0 % 09/20/2014 10:42 PM [facility] Immature Granulocytes 0.2 0 - 1 % 09/20/2014 10:42 PM [facility] Neutrophil Absolute 1.86(L) 2.01 - 7.14 x10^9/L 09/20/2014 10:42 PM [facility] Lymphocytes Absolute 1.92 1.07 - 3.94 x10^9/L 09/20/2014 10:42 PM [facility] Monocytes Absolute 0.27 0.26 - 1.07 x10^9/L 09/20/2014 10:42 PM [facility] Eosinophils Absolute 0.25 0 - 0.47 x10^9/L 09/20/2014 10:42 PM [facility] Basophils Absolute 0.04 0 - 0.08 x10^9/L 09/20/2014 10:42 PM [facility] Immature Granulocytes Absolute 0.01 0.00 - 0.06 x10^9/L 09/20/2014 10:42 PM [facility] nRBC Auto 0 /100 WBC 09/20/2014 10:42 PM [facility] Blood BLOOD SPECIMEN / Unknown Collection / Unknown 09/20/2014 10:29 PM PAINT STOCK CLERK 09/20/2014 10:34 PM [facility] Jael Porter MD LAB - HEMATOLOGY ORD ERABLES [facility] [address] [place] [address] * (ABNORMAL) COMPREHENSIVE METABOLIC PANEL (09/20/2014 10:29 PM [facility]) [facility] Signature Glucose 94 74 - 106 mg/dL 09/20/2014 11:01 PM [facility] Sodium 141 136 - 145 mmol/L 09/20/2014 11:01 PM [facility] Potassium 3.5 3.5 - 5.1 mmol/L 09/20/2014 11:01 PM [facility] Chloride 107 98 - 107 mmol/L 09/20/2014 11:01 PM [facility] CO2 26 22 - 31 mmol/L 09/20/2014 11:01 PM [facility] Calcium 8.4(L) 8.5 - 10.1 mg/dL 09/20/2014 11:01 PM [facility] Anion Gap 8 5 - 15 mmol/L 09/20/2014 11:01 PM [facility] BUN 6(L) 7 - 21 mg/dL 09/20/2014 11:01 PM [facility] Creatinine 0.62 0.50 - 1.30 mg/dL 09/20/2014 11:01 PM [facility] eGFR by MDRD >60 >60 mL/min/1.7 3m2 09/20/2014 11:01 PM [facility] eGFR by MDRD >60 >60 mL/min/1.7 3m2 09/20/2014 11:01 PM [facility] Alkaline Phosphatase 59 38 - 126 U/L 09/20/2014 11:01 PM [facility] ALT 16 12 - 78 U/L 09/20/2014 11:01 PM [facility] AST 12 5 - 40 U/L 09/20/2014 11:01 PM [facility] Protein Total 6.9 6.4 - 8.2 gm/dL 09/20/2014 11:01 PM [facility] Albumin 3.7 3.4 - 5.0 gm/dL 09/20/2014 11:01 PM [facility] Bilirubin Total 0.3 0.2 - 1.0 mg/dL 09/20/2014 11:01 PM [facility] Blood BLOOD SPECIMEN / Unknown Venipuncture / Unknown 09/20/2014 10:29 PM [facility] 09/20/2014 10:41 PM PAINT STOCK CLERK Jael Porter MD LAB - CHEMISTRY JUAN DANIEL WILLSON Performing Organization Address [facility]/ZIP Co de Phone Number [facility] [address] [place] [address] * EKG 12-LEAD (09/20/2014 10:24 PM PAINT STOCK CLERK) Ventricular Rate 73 BPM [facility] Atrial Rate 73 BPM [facility] P-R Interval 174 ms [facility] QRS Duration ms 82 ms [facility] Q-T Interval ms 414 ms [facility] QTC Calculation (Bezet) 456 ms [facility] Calculated P [place] 43 degrees [facility] Calculated R [place] 88 degrees [facility] Calculated T [place] 65 degrees [facility] Interpretation EKG NORMAL SINUS RHYTHM NORMAL ECG NO PREVIOUS ECGS AVAILABLE Confirmed by MD Perez, Dieudonne ([id number]) on 09/21/2014 8:02:46 AM [facility] 09/20/2014 10:2 4 PM PAINT STOCK CLERK 09/21/2014 8:02 AM PAINT STOCK CLERK Jael Porter MD ECG ORDERABLES Performing Organization Address City/[facility]/ZIP Co de Phone Number [facility] Care Teams Riveter Helper Relationship Specialty Start Date End Date John Jansen MD [address] [facility] [place] [address] PCP - General Family Medicine 09/20/14
--- OUTSIDE RECORDS SUMMARY | 2024-12-03 12:01 | XMS_ITS | Clinical Summary ---
Author Organization [facility] [employer] Address [address] [place] [address] Care Team Providers Care Paint Factory Worker Name Role Phone John Jansen MD Primary Care Provider [phone] Source Comments [facility] [employer],non-owned Affiliates and Associated Physician Practices is amultiple site organization consisting of ambulatory clinics and hospital sitesin [place], [place], [place] and [place]. This disclosure is being madepursuant to the Care Everywhere program and may not contain all information available regarding this patient. Last updated 18.[facility] [employer] Allergies No known active allergies Medications * [...] Comments Blood Pressure 102/62 09/21/2014 2:05 AM DIGITAL MARKETING CONSULTANT Pulse 78 09/21/2014 2:05 AM DIGITAL MARKETING CONSULTANT Temperature 37 C (98.6 F) 09/21/2014 2:05 AM DIGITAL MARKETING CONSULTANT Respiratory Rate 16 09/21/2014 2:05 AM DIGITAL MARKETING CONSULTANT Oxygen Saturation 99% 09/21/2014 2:05 AM DIGITAL MARKETING CONSULTANT Inhaled Oxygen Concentration - - Weight 63.5 kg (140 lb) 09/20/2014 9:51 PM DIGITAL MARKETING CONSULTANT Height 177.8 cm (5' 10 ) 09/20/2014 9:51 PM DIGITAL MARKETING CONSULTANT Body Mass Index 20.09 09/20/2014 9:51 PM DIGITAL MARKETING CONSULTANT Plan of Treatment Health Maintenance Due Date [...] age to complete this topic Care Teams Paint Factory Worker Relationship Specialty Start Date End Date John Jansen MD [address] [place] [address] PCP - General Family Medicine 09/20/14
--- OUTSIDE RECORDS SUMMARY | 2024-12-03 12:01 | XMS_ITS ---
Author Organization [facility] Address [address] [place] [address] Care Team Providers Care [employer]ich Farm Worker Name Role Phone Bisi Mayers Unavailable Unav ailable Allergies No Known Allergies REASON FOR VISIT EMR-[facility] Medications Medication SIG (Take, Route, Frequency, Duration) Notes Start Date End Date Status Julia-D Allergy & Congestion 180-240 MG 1 Two Times A Day Oral 05/28/2008 Active Ortho-Novum (28) as directed *Reorder from [facility] for eRx and Interaction Alerts* 08/11/2008 Active [...] Encounter Location Date Provider Diagnosis [facility] [address] [place] [address] 07/21/2023 zzzzProvider zzzzMigration Plan Of Treatment No Information Progress Notes * Pam MARKS EDOB:[birth year] (44 yo F)Acc No.[id number]:07/21/2023 Patient: Ivy Pam [place] :1980 A ge:43 Y S ex:Female Address:[address] [place] [address], [address] Subjective: * Chief Complaints: * E MR-[facility] [...] directed , Notes to Pharmacist: *Reorder from [facility] for eRx and Interaction Alerts*Taking Clindamycin Phosphate [...] directed , Notes to Pharmacist: *Reorder from [facility] for eRx and Interaction Alerts* * Allergies: N .K.D.A.no[Allergies Verified] Objective: * Vitals: * Physical Examination: Assessment: Plan: * Treatment: * Procedure Codes: * * Date:
== END 2024-12-03 10:28 | disposition home or self-care (01) ==
PROVIDERS: PCP Physician Assistant; Visit Provider Internal Medicine Hematology & Oncology
DX: D72.819 Decreased white blood cell count, unspecified (principal)
CPT/HCPCS: 76700

== ENCOUNTER 2025-07-26 14:34 | Outpatient (CLI) | payer OTHER, SELFPAY ==
[2025-07-26 14:55] LABS: Hematocrit 39.6 % (37.0-47.0); Hemoglobin 13.0 g/dL (12.0-15.0); Immature Granulocyte Percent A 0.2 % (0-0.5); Lymphocytes Absolute Auto 1.44 K/mm3 (0.9-3.2); Mean Corpuscular HGB Conc 32.8 g/dl (32-36); Mean Corpuscular Hemoglobin 34.1 pg (26-34); Mean Corpuscular Volume 103.9 fl (80-100); Nucleated Red Blood Cells Absolute Auto 0.000 K/mm3 (0.0-0.012); Nucleated Red Blood Cells Perc 0.0 % (0.0-0.2); Platelet Count Result 198 k/mm3 (150-375); Red Blood Count 3.81 M/mm3 (4.2-5.4); White Blood Count 5.5 K/mm3 (4.5-10.0)
--- OUTSIDE RECORDS SUMMARY | 2025-07-26 16:17 | XMS_ITS | Data Portability ---
Author Organization ОЛЬГА WILLEboni Ness Address [address] [facility] [facility] [place] [address] Care Team Providers Care Cytotechnologist/Histotechnologist Name Role Phone CHEIKH PICKETT Primary Care Provider Unavailab le Assessment Encounter Date Assessment Date Assessment LastModified by Organization Details LastModified Time 06/17/2025 06/17/2025 Cologuard negative July 06, 2024 Mammogram? Not available 06/17/2025 10:11:50 Plan of Treatment Reminders Order Date Submit Date Provider Last Modified By Organization Details Last Modified Time Details Appointments ANY 15 2025 09:00A M ELISHA Mccallum Not available Not available Not available Lab TSH + free T4, serum 2024 025 [email or web address] [facility], [address], [place], [address], 06/17/2025 10:31:56 lipid panel, serum 2024 025 [email or web address] [facility], [address], [place], [address], 06/17/2025 10:31:56 CMP, serum or plasma 2024 025 [email or web address] [facility], [address], [place], [address], 06/17/2025 10:31:56 CBC w/ auto diff 2024 025 [email or web address] [facility], [address], [place], [address], 06/17/2025 10:31:55 HbA1c (hemoglob in A1c), blood [email or web address] [place] [address], [address], [place], [address], 06/17/2025 10:31:56 TSH + free T4, serum 2023 024 [facility], [address], [place], [address], 08/18/2024 10:14:46 lipid panel, serum 2023 024 [facility], [address], [place], [address], 08/18/2024 10:14:44 CMP, serum or plasma 2023 024 [facility], [address], [place], [address], 08/18/2024 10:14:47 CBC w/ auto diff 2023 024 [facility], [address], [place], [address], 08/18/2024 10:14:49 noninvasi ve colorecta l cancer DNA + occult blood screening , QL, stool 2023 024 [facility], [address], [address], [place], [address], 07/09/2024 21:56:55 HbA1c (hemoglob in A1c), blood 2023 024 [facility], [address], [place], [address], 08/18/2024 10:14:48 Referral None recorded. Procedures None recorded. Surgeries None recorded. Imaging MAMMO, screening , digital, bilateral 2024 025 [facility], [address], [place], [address], 06/22/2025 11:55:21 MAMMO, screening , digital, bilateral 2023 024 [email or web address] [facility], [address], [place], [address], 07/26/2025 15:13:43 Medication Orders prednison e 20 mg tablet 2024 025 [id number], [address] [place] [address], [phone], 04/26/2025 05:02:10 amoxicill in 875 mg tablet 2024 025 [id number], [address] [facility], [place], [place], [phone], 06/17/2025 10:06:59 Patient TargetsNo targets recorded. Patient Instructions Encounter Date Encounter Id Patient Instructions Last Modified By Organization Details Last Modified Time 06/17/2025 [id number] A healthy lifestyle: care instructions Not available 06/17/2025 10:31:56 Reason for Referral None Reported. Results Created [...] ant featu res) is prese nt. The [facility] e that a perso n with a negat fred Colog uard test has a color ectal cance r is less than 1 in 1500 (nega tive predi ctive value >99.9 %) or has an advan ezequiel adeno ma is less than 5.3% (nega tive predi ctive value 94.7% ). These data are based on a prosp ectiv e cross -sect ional study of 10,00 0 indiv idual s at [place] [facility] risk for color ectal cance r who were scree artemio with both Colog uard and colon oscop y. (Saw Thorne et al, N Engl J Med 2014; 370(1 4):12 86-12 97) The rosio l value (refe rence range ) for this assay is negat fred. COLOG UARD RE-SC REENI NG RECOM MENDA TION: Perio dic color ectal cance r scree andre is an impor tant part of preve ntive healt hcare for asymp tomat ic indiv idual s at [place] risk for color ectal cance r. Follo [...] ectal Cance r Scree andre: https ://niranjan cummings.can cer.o rg/ca ncer/ colon -rect al-ca ncer/ detec tion- diagn osis- stagi ng/ac s-rec ommen datio ns.ht ml.; Ramirez LITTLEJOHN, Dwight ivy CR, Agustín HaynesK, Color ectal Cance r Scree andre: Recom menda tions for Physi cians and Patie nts from the [place]. Multi -Soci ety Task Force on Color ectal Cance r Scree andre , Micha buenrostro y 2017; 112:1 016-1 030. TEST DESCR IPTIO N: [facility] site algor ithmi c srinivas sis of [...] years or older , who are at [facility] for color ectal cance r (CRC) . Colog uard has been appro carly for use by the U.[place]. FDA. The perfo rmanc e of Colog uard was estab lishe d in a cross secti onal study of [facility] adult s aged 50-84 . Colog uard [...] cross -sect ional scree andre study of 10,00 0 indiv idual s at [facility] risk for color ectal cance r [...] uard perfo rmanc e data in a 10,00 0 patie nt pivot al study using colon oscop y as the refer ence metho d can be acces sed at the follo wing locat ion: www.e xactl abs.c om/re sults . Addit ional descr iptio n of the Colog uard test proce ss, warni ngs and preca ution s can be found at www.c wagner maria luisa.c om. Not Available [facility] [address], [place], [address], 07/09/2024 21:56:55 08/17/20 24 08/18/2024 LIPID PANEL W/ CHOL/ HDL RATIO cholesterol, total 194 mg/dL 100-19 9 Not Available [facility] ([facility]) [address] [facility] [address], [place], [address], 08/18/2024 10:14:44 08/17/20 24 08/18/2024 LIPID PANEL W/ CHOL/ HDL RATIO triglyceride s 46 mg/dL 0-149 Not Available [facility] ([facility]) [address] [facility] [address], [place], [address], 08/18/2024 10:14:44 08/17/20 24 08/18/2024 LIPID PANEL W/ CHOL/ HDL RATIO HDL cholesterol 115 mg/dL >39 Not Available [facility]) [address] [facility], [place], [address], 08/18/2024 10:14:44 08/17/20 24 08/18/2024 LIPID PANEL W/ CHOL/ HDL RATIO VLDL cholesterol kassandra 9 mg/dL 5-40 Not Available [facility] ([facility]) [address] [place], [address], 08/18/2024 10:14:44 08/17/20 24 08/18/2024 LIPID PANEL W/ CHOL/ HDL RATIO LDL chol calc ([facility]) 70 mg/dL 0-99 Not Available [facility]) [address] [place], [address], 08/18/2024 10:14:44 08/17/20 24 08/18/2024 LIPID PANEL W/ CHOL/ HDL RATIO T. chol/HDL ratio 1.7 ratio 0.0-4. 4 T. Chol/ HDL Ratio Men Women 1/2 Avg.R isk 3.4 3.3 Avg.R isk 5.0 4.4 2X Avg.R isk 9.6 7.1 3X Avg.R isk 23.4 11.0 Not Available [facility] ([facility]) [address] [place], [address], 08/18/2024 10:14:44 08/17/20 24 08/18/2024 TSH+F REE T4 TSH 1.980 uIU/m L 0.450- 4.500 Not Available [facility] ([facility]) [address] [place], [address], 08/18/2024 10:14:45 08/17/20 24 08/18/2024 TSH+F REE T4 T4,free(dire ct) 1.05 NG/dL 0.82-1 .77 Not Available [facility] ([facility]) [address] [place], [address], 08/18/2024 10:14:45 08/17/20 24 08/18/2024 COMP. METAB OLIC PANEL (14) glucose 97 mg/dL 70-99 Not Available [facility] ([facility]) [address] [place], [address], 08/18/2024 10:14:47 08/17/20 24 08/18/2024 COMP. METAB OLIC PANEL (14) BUN 15 mg/dL 6-24 Not Available [facility] ([facility]) [address] [place], [address], 08/18/2024 10:14:47 08/17/20 24 08/18/2024 COMP. METAB OLIC PANEL (14) creatinine 0.83 mg/dL 0.57-1 .00 Not Available [facility] ([facility]) [address] [facility], [place], [address], 08/18/2024 10:14:47 08/17/20 24 08/18/2024 COMP. METAB OLIC PANEL (14) eGFR 89 mL/mi n/1.7 3 >59 Not Available [facility] ([facility]) [address] [facility], [place], [address], 08/18/2024 10:14:47 08/17/20 24 08/18/2024 COMP. METAB OLIC PANEL (14) BUN/creatini ne ratio 18 - Not Available [facility] ([facility]) [address] [facility], [place], [address], 08/18/2024 10:14:47 08/17/20 24 08/18/2024 COMP. METAB OLIC PANEL (14) sodium 139 mmol/ L 134-14 4 Not Available [facility] ([facility]) [address] [place], [address], 08/18/2024 10:14:47 08/17/20 24 08/18/2024 COMP. METAB OLIC PANEL (14) potassium 4.9 mmol/ L 3.5-5. 2 Not Available [facility] ([facility]) [address] [place], [address], 08/18/2024 10:14:47 08/17/20 24 08/18/2024 COMP. METAB OLIC PANEL (14) chloride 103 mmol/ L 96-106 Not Available [facility] ([facility]) [address] [place], [address], 08/18/2024 10:14:47 08/17/20 24 08/18/2024 COMP. METAB OLIC PANEL (14) carbon dioxide, total 23 mmol/ L 20-29 Not Available [facility] ([facility]) [address], [place], [address], 08/18/2024 10:14:47 08/17/20 24 08/18/2024 COMP. METAB OLIC PANEL (14) calcium 8.8 mg/dL 8.7-10 .2 Not Available [facility] ([facility]) [address], [place], [address], 08/18/2024 10:14:47 08/17/20 24 08/18/2024 COMP. METAB OLIC PANEL (14) protein, total 6.5 g/dL 6.0-8. 5 Not Available [facility] ([facility]) [address] [place], [address], 08/18/2024 10:14:47 08/17/20 24 08/18/2024 COMP. METAB OLIC PANEL (14) albumin 4.2 g/dL 3.9-4. 9 Not Available [facility] ([facility]) [address], [place], [address], 08/18/2024 10:14:47 08/17/20 24 08/18/2024 COMP. METAB OLIC PANEL (14) globulin, total 2.3 g/dL 1.5-4. 5 Not Available [facility] ([facility]) [address] [facility], [place], [address], 08/18/2024 10:14:47 08/17/20 24 08/18/2024 COMP. METAB OLIC PANEL (14) bilirubin, total 0.4 mg/dL 0.0-1. 2 Not Available [facility] ([facility]) [address] [place], [address], 08/18/2024 10:14:47 08/17/20 24 08/18/2024 COMP. METAB OLIC PANEL (14) alkaline phosphatase 67 IU/L 44-121 Not Available [facility]) [address] [facility], [place], [address], 08/18/2024 10:14:47 08/17/20 24 08/18/2024 COMP. METAB OLIC PANEL (14) AST (SGOT) 16 IU/L 0-40 Not Available [facility] ([facility]) [address] [facility], [place], [address], 08/18/2024 10:14:47 08/17/20 24 08/18/2024 COMP. METAB OLIC PANEL (14) ALT (SGPT) 11 IU/L 0-32 Not Available [facility] ([facility]) [address] [facility], [place], [address], 08/18/2024 10:14:47 08/17/20 24 08/18/2024 HEMOG LOBIN A1C hemoglobin A1C 5.1 % 4.8-5. 6 Predi abete s: 5.7 - 6.4 Diabe angeles: >6.4 Glyce benjamín contr ol for adult s with diabe angeles: <7.0 Not Available [facility] ([facility]) [address] [facility], [place], [address], 08/18/2024 10:14:48 08/17/20 24 08/18/2024 CBC WITH DIFFE RENTI AL/PL ATELE T WBC 2.9 x10e3 /uL 3.4-10 .8 below low normal Not Available [facility] ([facility]) [address] [facility], [place], [address], 08/18/2024 10:14:49 08/17/20 24 08/18/2024 CBC WITH DIFFE RENTI AL/PL ATELE T RBC 3.62 x10e6 /uL 3.77-5 .28 below low normal Not Available [facility] ([facility]) [address] [facility], [place], [address], 08/18/2024 10:14:49 08/17/20 24 08/18/2024 CBC WITH DIFFE RENTI AL/PL ATELE T hemoglobin 12.5 g/dL 11.1-1 5.9 Not Available [facility] ([facility]) [address] [place], [address], 08/18/2024 10:14:49 08/17/20 24 08/18/2024 CBC WITH DIFFE RENTI AL/PL ATELE T hematocrit 37.8 % 34.0-4 6.6 Not Available [facility] ([facility]) [address] [place], [address], 08/18/2024 10:14:49 08/17/20 24 08/18/2024 CBC WITH DIFFE RENTI AL/PL ATELE T MCV 104 fL 79-97 above high normal Not Available [facility] ([facility]) [address] [place], [address], 08/18/2024 10:14:49 08/17/20 24 08/18/2024 CBC WITH DIFFE RENTI AL/PL ATELE T MCH 34.5 pg 26.6-3 3.0 above high normal Not Available [facility] ([facility]) [address] [place], [address], 08/18/2024 10:14:49 08/17/20 24 08/18/2024 CBC WITH DIFFE RENTI AL/PL ATELE T MCHC 33.1 g/dL 31.5-3 5.7 Not Available [facility] ([facility]) [address] [place], [address], 08/18/2024 10:14:49 08/17/20 24 08/18/2024 CBC WITH DIFFE RENTI AL/PL ATELE T RDW 11.2 % 11.7-1 5.4 below low normal Not Available [facility] ([facility]) [address] [place], [address], 08/18/2024 10:14:49 08/17/20 24 08/18/2024 CBC WITH DIFFE RENTI AL/PL ATELE T platelets 195 x10e3 /uL 150-45 0 Not Available [facility] ([facility]) [address] [facility], [place], [address], 08/18/2024 10:14:49 08/17/20 24 08/18/2024 CBC WITH DIFFE RENTI AL/PL ATELE T neutrophils 39 % notest ab. Not Available [facility] ([facility]) [address] [facility], [place], [address], 08/18/2024 10:14:49 08/17/20 24 08/18/2024 CBC WITH DIFFE RENTI AL/PL ATELE T lymphs 48 % notest ab. Not Available [facility] ([facility]) [address] [facility], [place], [address], 08/18/2024 10:14:49 08/17/20 24 08/18/2024 CBC WITH DIFFE RENTI AL/PL ATELE T monocytes 10 % notest ab. Not Available [facility] ([facility]) [address] [facility], [place], [address], 08/18/2024 10:14:49 08/17/20 24 08/18/2024 CBC WITH DIFFE RENTI AL/PL ATELE T eos 2 % notest ab. Not Available [facility] ([facility]) [address] [facility], [place], [address], 08/18/2024 10:14:49 08/17/20 24 08/18/2024 CBC WITH DIFFE RENTI AL/PL ATELE T basos 1 % notest ab. Not Available [facility] ([facility]) [address] [facility], [place], [address], 08/18/2024 10:14:49 08/17/20 24 08/18/2024 CBC WITH DIFFE RENTI AL/PL ATELE T neutrophils (absolute) 1.1 x10e3 /uL 1.4-7. 0 below low normal Not Available [facility] ([facility]) [address] [facility], [place], [address], 08/18/2024 10:14:49 08/17/20 24 08/18/2024 CBC WITH DIFFE RENTI AL/PL ATELE T lymphs (absolute) 1.4 x10e3 /uL 0.7-3. 1 Not Available [facility] ([facility]) [address] [facility], [place], [address], 08/18/2024 10:14:49 08/17/20 24 08/18/2024 CBC WITH DIFFE RENTI AL/PL ATELE T monocytes(ab solute) 0.3 x10e3 /uL 0.1-0. 9 Not Available [facility] ([facility]) [address] [facility], [place], [address], 08/18/2024 10:14:49 08/17/20 24 08/18/2024 CBC WITH DIFFE RENTI AL/PL ATELE T eos (absolute) 0.1 x10e3 /uL 0.0-0. 4 Not Available [facility] ([facility]) [address] [facility], [place], [address], 08/18/2024 10:14:49 08/17/20 24 08/18/2024 CBC WITH DIFFE RENTI AL/PL ATELE T baso (absolute) 0.0 x10e3 /uL 0.0-0. 2 Not Available [facility] ([facility]) [address] [facility], [place], [address], 08/18/2024 10:14:49 08/17/20 24 08/18/2024 CBC WITH DIFFE RENTI AL/PL ATELE T immature granulocytes 0 % notest ab. Not Available [facility] ([facility]) [address] [facility], [place], [address], 08/18/2024 10:14:49 08/17/20 24 08/18/2024 CBC WITH DIFFE RENTI AL/PL ATELE T immature grans (abs) 0.0 x10e3 /uL 0.0-0. 1 Not Available [facility] ([facility]) [address], [place], [address], 08/18/2024 10:14:49 12/23/19 25 12/22/2024 pap, IG + HR HPV Pap, HPV negati ve Not Available Not Available 17:16:40 12/04/19 25 12/03/2024 US, abdom en No observ ation record ed. [email or web address] [facility] [address], [place], [address], 12/04/2024 19:03:03 Result Notes None recorded. Problems Name Problem SNOMED Code Status Onset Date Resolution Date Notes Provider Name and Address Organization Details Recorded Time Body mass index 20-24 - normal 351669953 Active 024 ELISHA Mccallum Attn: Accounting ,[address] [facility], [place], [address] , [facility] 06/27/2025 20:13:21 Normal weight 43396056 Active 025 ELISHA Mccallum Attn: Accounting ,[address] [place], [address] , [facility] 06/17/2025 10:12:24 Problem Notes None recorded. Medical Equipment None Reported. Allergies No known drug allergies Medications Name Sig Start Date Stop Date Status Note LastModified by Organization Details LastModified Time ketoconazol e 2 % shampoo SHAMPOO WITH A SMALL AMOUNT THREE TIMES A WEEK active Not Available Not Available No t Available prednisone 20 mg tablet Take 2 tablets every day by oral route for 5 days. 04/26 completed Not Available Not Available Not Available spironolact one 100 mg tablet TAKE 1 TABLET BY MOUTH DAILY active face- derm Not Available Not Available Not Available amoxicillin 875 mg tablet TAKE 1 TABLET BY MOUTH 12 HOURS 06/17 completed Not Available Not Available Not Available tacrolimus 0.1 % topical ointment APPLY TOPICALLY TO FACE TWICE DAILY NEEDED active Not Available Not Available No t Available oseltamivir 75 mg capsule TAKE 1 CAPSULE BY MOUTH TWICE DAILY FOR 5 DAYS 06/11 completed Not Available Not Available Not Available ondansetron 4 mg disintegrat ing tablet DISSOLVE 1 TABLET ON THE TONGUE EVERY 6 HOURS NEEDED active Not Available Not Available No t Available doxycycline hyclate 100 mg tablet Take 1 tablet by oral route for 30 days. 06/17 completed Not Available Not Available Not Available Mirena active Not Available Not Availa ble Not Available MARIANO (28) 3 mg-0.02 mg tablet TAKE 1 TABLET BY MOUTH DAILY IN CONTINUOU S [employer] active Not Available Not Available No t Available Vitals Date Recorded Respiratory rate Provider Name a nd Address Organization Details Last Updated DateTime 04/14/2025 16 /min ELISHA Mccallum Attn: Accounting,[address] [place], [address], [facility] 04/14/2025 12:34:41 Date Recorded Body height Body mass index (BMI) Body weight Oxygen saturation Oxygen saturation in Arterial blood by Pulse oximetry Heart rate Systolic And Diastolic Provider Name and Address Organization Details Last Updated DateTime 5 176.28 cm 20 kg/m2 97433.1 5 g 100 % 100 % 82 /min 108/72 mm[Hg] Meme Zambrano MA [facility] 5 12:16:41 Date Recorded Systolic And Diastolic Provider Name and Address Organization Details Last Updated DateTime 06/11/2024 110/80 mm[Hg] ELISHA Mccallum Attn: Accounting,[address] [place], [address], [facility] 06/11/2024 10:09:46 Date Recorded Body height Respiratory rate Body mass index (BMI) Body weight Oxygen saturation Oxygen saturation in Arterial blood by Pulse oximetry Heart rate Systolic And Diastolic Provider Name and Address Organization Details Last Updated DateTime 4 176.28 cm 18 /min 20.4 kg/m2 26335.9 3 g 98 % 98 % 63 /min 108/78 mm[Hg] Meme Zambrano MA [facility] 4 09:48:43 Date Recorded Respiratory rate Provider Name a nd Address Organization Details Last Updated DateTime 06/17/2025 16 /min ELISHA Mccallum Attn: Accounting,[address] [facility], [place], [address], [place] [facility] 06/27/2025 20:12:47 Date Recorded Body height Body mass index (BMI) Body weight Oxygen saturation Oxygen saturation in Arterial blood by Pulse oximetry Heart rate Systolic And Diastolic Provider Name and Address Organization Details Last Updated DateTime 176.28 cm 21 kg/m2 46084.3 g 98 % 98 % 80 /min 102/70 mm[Hg] Meme Zambrano MA [facility] 10:08:48 Social History Question Answer Notes LastModified by Organizat ion Details LastModified Time Tobacco Smoking Status Never Smoker Meme Zambrano MA null, [facility] 06/11/2024 09:46:07 Do You Have An Advance Directive? Yes Information not available 06/11/2024 Are You Blind [...] Date Of Your Most Recent Tobacco Screening? 06/17/2025 Information not available 06/17/2025 What Is Your Relationship Status? Information not available 06/11/2024 Do You Use Your Seat Belt Or Car Seat Routinely? Yes Information not available 06/11/2024 Do You Have Smoke And Carbon Monoxide Detectors In Your Home? Yes Information not available 06/11/2024 Do You Use Sunscreen Routinely? Yes Information not available 06/11/2024 Has Tobacco Cessation Counseling Been Provided? No Information not available 06/11/2024 Sex: Female Functional Status Question Answer Note LastModified by Organizat ion Details LastModified Time Do you use any illicit or recreational drugs? No Information not available 06/11/2024 Do you or have you ever used any other forms of tobacco or nicotine? No Information not available 06/11/2024 What is your level of alcohol consumption? Occasional Information not available 06/11/2024 Are you currently employed? Yes Information not available 04/14/2025 Are you able to care for yourself independently? Yes Information not available 06/11/2024 What is [...] Response Coronary Artery Disease N Other N High Blood Pressure N Atrial Fibrillation N Kidney or Bladder Problems N Thyroid Problems N GI Problems N Depression N COPD N Blood Clots N Have you had a mammogram in the last yea r? N Skin Problems N Anemia N Heart Attack (MO) N Anxiety Disorder N Diabetes N Muscle, Joint, or Bone Problems N Seizures/Epilepsy N Have you had a colonoscopy in the last 1 0 years? N Acid Reflux (GERD) N Cancer N Stroke N Asthma N Allergies N Have you had a PSA blood test in the las t year? N High Cholesterol N Hepatitis N Liver Disease N Headaches N Heart Failure N Osteoporosis N Immunizations Vaccine Type Date Status Note Provider Nam e and Address Organization Details Recorded Time COVID-19, mRNA, LNP-S, PF, 100 mcg/0.5mL dose or 50 mcg/0.25mL dose 07/28/2021 completed [place], [place] - [facility] 12/23/2024 12:11:58 COVID-19 vaccine, vector-nr, rS-Ad26, PF, 0.5 mL 12/28/2020 [place] [facility] 12/23/2024 12:11:58 Hep A, adult 02/23/2016 [place] [facility] 12/23/2024 12:11:58 typhoid, ViCPs 02/23/2016 [place] GUR[place] [facility] 12/23/2024 12:11:58 Past Encounters Encounter ID Performer Location Encounter Start Date Encounter Closed Date Diagnosis/Indication Diagnosis SNOMED-CT Code Diagnosis ICD10 Code Diagnosis IMO Codes Diagnosis Note [id number] Dale Silva MD [facility] [place] [address] [place] [id number] 06/11/2024 09:32:22 06/11/2024 10:53:45 Body mass index 20-24 - normal 925414676 Z68.20 BMI is 20.4 Adult heal th examination 028451940 Z00.00 Annual wellness exam completed with fasting labs ordered. Cholesterol screening 27 6087799 Z13.220 Fasting lipid panel is due Diabetes m ellitus screening 065879404 Z13.1 Annual A1c screening ordered Thyroid di sorder screening 620184052 Z13.29 Routine thyroid testing ordered Screening mammography 24 293203 Z12.31 Annual mammogram is due Screening for malignant neoplasm of colon 588648607 Z12.11 Patient opts for Cologuard screening method [id number] Dale Silva MD [facility] [place] [address] [place] [address] 04/14/2025 12:00:01 04/14/2025 14:20:49 Body mass index 20-24 - normal 933567470 Z68.20 39223478 BMI is 20.4 Dysfunctio n of left eustachian tube 0526871418 365176 H69.92 10037582 Start prednisone 40 mg daily for 5 days, patient may take Sudafed during plane flight and also nasal steroid spray to help with any pressure symptoms or exacerbati on of Eustachian tube dysfunctio n Otalgia of left ear 1010 [id number] H92.02 [id number] A standby script of amoxicilli n 875 twice daily is being ordered for her to take to [place] in case her ear progresses in pain. [id number] Dale Silva MD [facility] - Evelyn Zaman [address] [place] [address] 06/17/2025 10:01:56 06/22/2025 11:48:39 Normal weight 82269735 Z68.21 [id number] Normal BMI Adult heal th examination [id number] Z00.00 Annual wellness exam completed with fasting labs ordered. Cholesterol screening 27 [id number] Z13.220 Fasting lipid panel is due Diabetes m ellitus screening 610095305 Z13.1 Annual A1c screening ordered Thyroid di sorder screening 101294153 Z13.29 Routine thyroid testing ordered Screening mammography 24 393554 Z12.31 Annual mammogram is due Body mass index 20-24 - normal 918517583 Z68.21 [id number] BMI 21 Health Concerns Section Related Observation LastModified by Organization Detai ls LastModified Time None Recorded Concern Status LastModified by Organization Details LastModified Time None Recorded Advance Directives Directive Y: Payers Insurance Date Sequence Insurance Name Policy Number Policy Peña Covered Member ID Peña Member ID Guarantor Name 06/29/2025 1 [facility] ([facility] Mohamud Sue [id number] Pam Sue Notes Date Note Type Note Provider Name and Address Organization Details Recorded Time 06/11/2024 text/html Patient is here for annual wellness exam and routine labs. She has no new complaints or concerns. ELISHA Mccallum Attn: Accounting[address] [place], [address], [facility] 06/28/2024 16:19:15 04/14/2025 text/html EaracheReported by PatientHPIFor location, patient reportsleft. For severity, patient reportsworsening. For timing, patient reportsworse. For associated symptoms, patient reportspopping noise in the earsbut reportsno discharge from the ears,no hearing loss,no nose/sinus problems, andno ringing in the ears. For quality, patient reportsachinganddull. For duration, patient reportsfrequent. For context, patient reportsno sick contacts,no recent swimming/water in ear,no exposure to second hand smoke, andno recent air travel (but upcoming flight to [place] For modifying factors, patient reportsdoes not hurt to lie on, or pull on earanddoes not hurt to chew. ELISHA Mccallum Attn: Accounting[address] [place], [address], [facility] 04/29/2025 20:26:43 06/17/2025 text/html Patient is here for annual wellness exam and routine labs. She has no new complaints or concerns. ELISHA Mccallum Attn: Accounting[address] [facility], [place], [address], [facility] 06/27/2025 20:13:37
--- OUTSIDE RECORDS SUMMARY | 2025-07-26 16:17 | XMS_ITS | Data Portability ---
Author Organization [facility], Main Office Address [address] [place] [address] Assessment No assessment recorded. Plan of Treatment Reminders Order Date Submit Date Provider Last Modified By Organization Details Last Modified Time Details Appointments None recorded. Lab lipid panel, serum 2022 [address] [facility], [address], [place], [address], 3 09:11:57 CBC w/ auto diff 2022 023 [email or web address] 4 [facility], [address], [place], [address], 3 15:23:32 TSH + free T4, serum 2022 [address] [facility], [address], [place], [address], 3 09:11:57 CMP, serum or plasma 2022 [address] [facility], [address], [place], [address], 3 09:11:57 vitamin B12 + folate, serum or blood 2022 023 [email or web address] 4 [facility], [address], [place], [address], 3 15:23:33 HbA1c (hemoglobin A1c), blood 2022 023 [email or web address] 4 [facility], [address], [place], [address], 15:23:32 Referral None recorded. Procedures None recorded. Surgeries None recorded. Imaging MAMMO, screening, bilateral 2022 023 ELSA Not available 14:12:32 US, abdomen 2022 023 [facility], [address], [place], [address], 13:48:41 Medication Orders ondansetron 4 mg disintegrat ing tablet 2022 023 VALLECITO [id number], [address], [place], [place], [id number], 3 10:17:11 Patient TargetsNo targets recorded. Patient [...] with diabe angeles: <7.0 Not Available [facility] ([facility]) [address] [facility], [place], [address], 03/04/2022 03:06:32 03/01/20 22 03/02/2022 VITAM IN B12 AND FOLAT E vitamin B12 509 pg/mL 232-12 45 Not Available [facility] ([facility]) [address] [facility], [place], [address], 03/04/2022 03:06:31 03/01/20 22 03/02/2022 VITAM IN B12 AND FOLAT E folate (folic acid), serum 18.2 NG/mL >3.0 A serum folat e franci ntrat ion of less than 3.1 ng/mL is consi dered to repre sent clini kassandra defic iency . Not Available [facility] ([facility]) [address] [facility], [place], [address], 03/04/2022 03:06:31 03/01/20 22 03/02/2022 LIPID PANEL W/ CHOL/ HDL RATIO cholesterol, total 207 mg/dL 100-19 9 above high normal Not Available [facility] ([facility]) [address] [facility] [place], [address], 03/04/2022 03:06:31 03/01/20 22 03/02/2022 LIPID PANEL W/ CHOL/ HDL RATIO triglyceride s 54 mg/dL 0-149 Not Available [facility] ([facility]) [address] [facility], [place], [address], 03/04/2022 03:06:31 03/01/20 22 03/02/2022 LIPID PANEL W/ CHOL/ HDL RATIO HDL cholesterol 98 mg/dL >39 Not Available [facility] ([facility]) [address] [place], [address], 03/04/2022 03:06:31 03/01/20 22 03/02/2022 LIPID PANEL W/ CHOL/ HDL RATIO VLDL cholesterol kassandra 10 mg/dL 5-40 Not Available [facility] ([facility]) [address] [place], [address], 03/04/2022 03:06:31 03/01/20 22 03/02/2022 LIPID PANEL W/ CHOL/ HDL RATIO LDL chol calc ([facility]) 99 mg/dL 0-99 Not Available [facility] ([facility]) [address] [place], [address], 03/04/2022 03:06:31 03/01/20 22 03/02/2022 LIPID PANEL W/ CHOL/ HDL RATIO comment: inpatient care manager rn Not Available [facility] ([facility]) [address] [facility], [place], [address], 03/04/2022 03:06:31 03/01/20 22 03/02/2022 LIPID PANEL W/ CHOL/ HDL RATIO T. chol/HDL ratio 2.1 ratio 0.0-4. 4 T. Chol/ HDL Ratio Men Women 1/2 Avg.R isk 3.4 3.3 Avg.R isk 5.0 4.4 2X Avg.R isk 9.6 7.1 3X Avg.R isk 23.4 11.0 Not Available [facility] ([facility]) [address] [facility], [place], [address], 03/04/2022 03:06:31 03/01/20 22 03/02/2022 UA WITH CULTU RE REFLE X specific gravity 1.011 1.005- 1.030 Not Available [facility] ([facility]) [address] [facility], [place], [address], 03/04/2022 03:06:30 03/01/20 22 03/02/2022 UA WITH CULTU RE REFLE X pH 6.0 5.0-7. 5 Not Available [facility] ([facility]) [address] [facility], [place], [address], 03/04/2022 03:06:30 03/01/20 22 03/02/2022 UA WITH CULTU RE REFLE X urine-color yellow yellow Not Available [facility] ([facility]) [address] [facility], [place], [address], 03/04/2022 03:06:30 03/01/20 22 03/02/2022 UA WITH CULTU RE REFLE X appearance clear clear Not Available [facility] ([facility]) [address] [facility], [place], [address], 03/04/2022 03:06:30 03/01/20 22 03/02/2022 UA WITH CULTU RE REFLE X WBC esterase 1+ negati ve abnormal Not Available [facility] ([facility]) [address] [place], [address], 03/04/2022 03:06:30 03/01/20 22 03/02/2022 UA WITH CULTU RE REFLE X protein negati ve negati ve/tra ce Not Available [facility] ([facility]) [address] [facility], [place], [address], 03/04/2022 03:06:30 03/01/20 22 03/02/2022 UA WITH CULTU RE REFLE X glucose negati ve negati ve Not Available [facility] ([facility]) [address] [place], [address], 03/04/2022 03:06:30 03/01/20 22 03/02/2022 UA WITH CULTU RE REFLE X ketones trace negati ve abnormal Not Available [facility] ([facility]) [address] [place], [address], 03/04/2022 03:06:30 03/01/20 22 03/02/2022 UA WITH CULTU RE REFLE X occult blood negati ve negati ve Not Available [facility] ([facility]) [address] [place], [address], 03/04/2022 03:06:30 03/01/20 22 03/02/2022 UA WITH CULTU RE REFLE X bilirubin negati ve negati ve Not Available [facility] ([facility]) [address] [place], [address], 03/04/2022 03:06:30 03/01/20 22 03/02/2022 UA WITH CULTU RE REFLE X urobilinogen ,semi-qn 0.2 mg/dL 0.2-1. 0 Not Available [facility] ([facility]) [address] [place], [address], 03/04/2022 03:06:30 03/01/20 22 03/02/2022 UA WITH CULTU RE REFLE X nitrite, urine negati ve negati ve Not Available [facility] ([facility]) [address] [facility], [place], [address], 03/04/2022 03:06:30 03/01/20 22 03/02/2022 UA WITH CULTU RE REFLE X microscopic examination see below: Micro scopi c was indic ated and was perfo rmed. Not Available [facility] ([facility]) [address] [facility], [place], [address], 03/04/2022 03:06:30 03/01/20 22 03/02/2022 UA WITH CULTU RE REFLE X WBC 0-5 /hpf 0 - 5 Not Available [facility] ([facility]) [address] [facility], [place], [address], 03/04/2022 03:06:30 03/01/20 22 03/02/2022 UA WITH CULTU RE REFLE X RBC 0-2 /hpf 0 - 2 Not Available [facility] ([facility]) [address] [facility], [place], [address], 03/04/2022 03:06:30 03/01/20 22 03/02/2022 UA WITH CULTU RE REFLE X epithelial cells (non renal) 0-10 /hpf 0 - 10 Not Available [facility] ([facility]) [address] [facility], [place], [address], 03/04/2022 03:06:30 03/01/20 22 03/02/2022 UA WITH CULTU RE REFLE X epithelial cells (renal) inpatient care manager rn Not Available [facility] ([facility]) [address] [facility], [place], [address], 03/04/2022 03:06:30 03/01/20 22 03/02/2022 UA WITH CULTU RE REFLE X casts none seen /lpf none seen Not Available [facility] ([facility]) [address], [place], [address], 03/04/2022 03:06:30 03/01/20 22 03/02/2022 UA WITH CULTU RE REFLE X cast type inpatient care manager rn Not Available [facility] ([facility]) [address], [place], [address], 03/04/2022 03:06:30 03/01/20 22 03/02/2022 UA WITH CULTU RE REFLE X crystals inpatient care manager rn Not Available [facility] ([facility]) [address] [facility], [place], [address], 03/04/2022 03:06:30 03/01/20 22 03/02/2022 UA WITH CULTU RE REFLE X crystal type inpatient care manager rn Not Available [facility] ([facility]) [address] [facility], [place], [address], 03/04/2022 03:06:30 03/01/20 22 03/02/2022 UA WITH CULTU RE REFLE X mucus threads inpatient care manager rn Not Available [facility] ([facility]) [address] [facility], [place], [address], 03/04/2022 03:06:30 03/01/20 22 03/02/2022 UA WITH CULTU RE REFLE X bacteria none seen none seen/f ew Not Available [facility] ([facility]) [address] [facility], [place], [address], 03/04/2022 03:06:30 03/01/20 22 03/02/2022 UA WITH CULTU RE REFLE X yeast inpatient care manager rn Not Available [facility] ([facility]) [address] [facility], [place], [address], 03/04/2022 03:06:30 03/01/20 22 03/02/2022 UA WITH CULTU RE REFLE X trichomonas inpatient care manager rn Not Available [facility] ([facility]) [address] [facility], [place], [address], 03/04/2022 03:06:30 03/01/20 22 03/02/2022 UA WITH CULTU RE REFLE X comment inpatient care manager rn Not Available [facility] ([facility]) [address] [facility], [place], [address], 03/04/2022 03:06:30 03/01/20 22 03/02/2022 UA WITH CULTU RE REFLE X urinalysis reflex commen t This speci men has refle xed to a Urine Cultu re. Not Available [facility] ([facility]) [address] [facility], [place], [address], 03/04/2022 03:06:30 03/01/20 22 03/03/2022 UA WITH CULTU RE REFLE X urine culture, routine final report Not Available [facility] ([facility]) [address] [facility], [place], [address], 03/04/2022 03:06:30 03/01/20 22 03/03/2022 UA WITH CULTU RE REFLE X result 1 commen t Mixed uroge nital iftikhar 10,00 0-25, 000 colon y formi ng units per mL Not Available [facility] ([facility]) [address] [facility], [place], [address], 03/04/2022 03:06:30 03/01/20 22 03/02/2022 CBC WITH DIFFE RENTI AL/PL ATELE T WBC 3.9 x10e3 /uL 3.4-10 .8 Not Available [facility] ([facility]) [address] [facility], [place], [address], 03/04/2022 03:06:30 03/01/20 22 03/02/2022 CBC WITH DIFFE RENTI AL/PL ATELE T RBC 3.97 x10e6 /uL 3.77-5 .28 Not Available [facility] ([facility]) [address] [facility] [place], [address], 03/04/2022 03:06:30 03/01/20 22 03/02/2022 CBC WITH DIFFE RENTI AL/PL ATELE T hemoglobin 13.2 g/dL 11.1-1 5.9 Not Available [facility] ([facility]) [address] [facility] [place], [address], 03/04/2022 03:06:30 03/01/20 22 03/02/2022 CBC WITH DIFFE RENTI AL/PL ATELE T hematocrit 39.9 % 34.0-4 6.6 Not Available [facility] ([facility]) [address] [facility], [place], [address], 03/04/2022 03:06:30 03/01/20 22 03/02/2022 CBC WITH DIFFE RENTI AL/PL ATELE T MCV 101 fL 79-97 above high normal Not Available [facility] ([facility]) [address] [facility] [place], [address], 03/04/2022 03:06:30 03/01/20 22 03/02/2022 CBC WITH DIFFE RENTI AL/PL ATELE T MCH 33.2 pg 26.6-3 3.0 above high normal Not Available [facility] ([facility]) [address] [facility] [place], [address], 03/04/2022 03:06:30 03/01/20 22 03/02/2022 CBC WITH DIFFE RENTI AL/PL ATELE T MCHC 33.1 g/dL 31.5-3 5.7 Not Available [facility] ([facility]) [address] [facility] [place], [address], 03/04/2022 03:06:30 03/01/20 22 03/02/2022 CBC WITH DIFFE RENTI AL/PL ATELE T RDW 11.7 % 11.7-1 5.4 Not Available [facility] ([facility]) [address], [place], [address], 03/04/2022 03:06:30 03/01/20 22 03/02/2022 CBC WITH DIFFE RENTI AL/PL ATELE T platelets 192 x10e3 /uL 150-45 0 Not Available [facility] ([facility]) [address] [facility], [place], [address], 03/04/2022 03:06:30 03/01/20 22 03/02/2022 CBC WITH DIFFE RENTI AL/PL ATELE T neutrophils 48 % not estab. Not Available [facility] ([facility]) [address] [facility], [place], [address], 03/04/2022 03:06:30 03/01/20 22 03/02/2022 CBC WITH DIFFE RENTI AL/PL ATELE T lymphs 39 % not estab. Not Available [facility] ([facility]) [address] [facility], [place], [address], 03/04/2022 03:06:30 03/01/20 22 03/02/2022 CBC WITH DIFFE RENTI AL/PL ATELE T monocytes 10 % not estab. Not Available [facility] ([facility]) [address] [facility], [place], [address], 03/04/2022 03:06:30 03/01/20 22 03/02/2022 CBC WITH DIFFE RENTI AL/PL ATELE T eos 2 % not estab. Not Available [facility] ([facility]) [address] [facility], [place], [address], 03/04/2022 03:06:30 03/01/20 22 03/02/2022 CBC WITH DIFFE RENTI AL/PL ATELE T basos 1 % not estab. Not Available [facility] ([facility]) [address] [facility], [place], [address], 03/04/2022 03:06:30 03/01/20 22 03/02/2022 CBC WITH DIFFE RENTI AL/PL ATELE T immature cells inpatient care manager rn Not Available [facility] ([facility]) [address] [place], [address], 03/04/2022 03:06:30 03/01/20 22 03/02/2022 CBC WITH DIFFE RENTI AL/PL ATELE T neutrophils (absolute) 1.9 x10e3 /uL 1.4-7. 0 Not Available [facility] ([facility]) [address] [place], [address], 03/04/2022 03:06:30 03/01/20 22 03/02/2022 CBC WITH DIFFE RENTI AL/PL ATELE T lymphs (absolute) 1.5 x10e3 /uL 0.7-3. 1 Not Available [facility] ([facility]) [address] [place], [address], 03/04/2022 03:06:30 03/01/20 22 03/02/2022 CBC WITH DIFFE RENTI AL/PL ATELE T monocytes(ab solute) 0.4 x10e3 /uL 0.1-0. 9 Not Available [facility] ([facility]) [address] [place], [address], 03/04/2022 03:06:30 03/01/20 22 03/02/2022 CBC WITH DIFFE RENTI AL/PL ATELE T eos (absolute) 0.1 x10e3 /uL 0.0-0. 4 Not Available [facility] ([facility]) [address] [place], [address], 03/04/2022 03:06:30 03/01/20 22 03/02/2022 CBC WITH DIFFE RENTI AL/PL ATELE T baso (absolute) 0.0 x10e3 /uL 0.0-0. 2 Not Available [facility] ([facility]) [address] [place], [address], 03/04/2022 03:06:30 03/01/20 22 03/02/2022 CBC WITH DIFFE RENTI AL/PL ATELE T immature granulocytes 0 % not estab. Not Available [facility] ([facility]) [address] [facility], [place], [address], 03/04/2022 03:06:30 03/01/20 22 03/02/2022 CBC WITH DIFFE RENTI AL/PL ATELE T immature grans (abs) 0.0 x10e3 /uL 0.0-0. 1 Not Available [facility] ([facility]) [address] [facility], [place], [address], 03/04/2022 03:06:30 03/01/20 22 03/02/2022 CBC WITH DIFFE RENTI AL/PL ATELE T NRBC inpatient care manager rn Not Available [facility] ([facility]) [address] [facility], [place], [address], 03/04/2022 03:06:30 03/01/20 22 03/02/2022 CBC WITH DIFFE RENTI AL/PL ATELE T hematology comments: inpatient care manager rn Not Available [facility] ([facility]) [address] [facility], [place], [address], 03/04/2022 03:06:30 03/01/20 22 03/02/2022 TSH+F REE T4 TSH 1.900 uIU/m L 0.450- 4.500 Not Available [facility] ([facility]) [address] [place], [address], 03/04/2022 03:06:30 03/01/20 22 03/02/2022 TSH+F REE T4 T4,free(dire ct) 1.29 NG/dL 0.82-1 .77 Not Available [facility] ([facility]) [address] [place], [address], 03/04/2022 03:06:30 03/01/20 22 03/02/2022 CMP14 +EGFR glucose 98 mg/dL 65-99 Not Available [facility] ([facility]) [address] [facility] [place], [address], 03/04/2022 03:06:29 03/01/20 22 03/02/2022 CMP14 +EGFR BUN 11 mg/dL 6-24 Not Available [facility] ([facility]) [address] [facility] [place], [address], 03/04/2022 03:06:29 03/01/20 22 03/02/2022 CMP14 +EGFR creatinine 0.77 mg/dL 0.57-1 .00 Not Available [facility] ([facility]) [address] [facility] [place], [address], 03/04/2022 03:06:29 03/01/20 22 03/02/2022 CMP14 +EGFR eGFR 98 mL/mi n/1.7 3 >59 Not Available [facility] ([facility]) [address] [facility] [place], [address], 03/04/2022 03:06:29 03/01/20 22 03/02/2022 CMP14 +EGFR BUN/creatini ne ratio 14 9-23 Not Available [facility] ([facility]) [address] [facility] [place], [address], 03/04/2022 03:06:29 03/01/20 22 03/02/2022 CMP14 +EGFR sodium 137 mmol/ L 134-14 4 Not Available [facility] ([facility]) [address] [facility] [place], [address], 03/04/2022 03:06:29 03/01/20 22 03/02/2022 CMP14 +EGFR potassium 4.2 mmol/ L 3.5-5. 2 Not Available [facility] ([facility]) [address] [facility] [place], [address], 03/04/2022 03:06:29 03/01/20 22 03/02/2022 CMP14 +EGFR chloride 100 mmol/ L 96-106 Not Available [facility] ([facility]) [address] [place], [address], 03/04/2022 03:06:29 03/01/20 22 03/02/2022 CMP14 +EGFR carbon dioxide, total 24 mmol/ L 20-29 Not Available [facility] ([facility]) [address] [place], [address], 03/04/2022 03:06:29 03/01/20 22 03/02/2022 CMP14 +EGFR calcium 9.3 mg/dL 8.7-10 .2 Not Available [facility] ([facility]) [address] [place], [address], 03/04/2022 03:06:29 03/01/20 22 03/02/2022 CMP14 +EGFR protein, total 6.9 g/dL 6.0-8. 5 Not Available [facility] ([facility]) [address] [place], [address], 03/04/2022 03:06:29 03/01/20 22 03/02/2022 CMP14 +EGFR albumin 4.6 g/dL 3.8-4. 8 Not Available [facility] ([facility]) [address] [place], [address], 03/04/2022 03:06:29 03/01/20 22 03/02/2022 CMP14 +EGFR globulin, total 2.3 g/dL 1.5-4. 5 Not Available [facility] ([facility]) [address] [place], [address], 03/04/2022 03:06:29 03/01/20 22 03/02/2022 CMP14 +EGFR A/G ratio 2.0 1.2-2. 2 Not Available [facility] ([facility]) [address] [facility], [place], [address], 03/04/2022 03:06:29 03/01/20 22 03/02/2022 CMP14 +EGFR bilirubin, total 0.7 mg/dL 0.0-1. 2 Not Available [facility] ([facility]) [address] [facility], [place], [address], 03/04/2022 03:06:29 03/01/20 22 03/02/2022 CMP14 +EGFR alkaline phosphatase 83 IU/L 44-121 Not Available [facility] ([facility]) [address] [facility], [place], [address], 03/04/2022 03:06:29 03/01/20 22 03/02/2022 CMP14 +EGFR AST (SGOT) 13 IU/L 0-40 Not Available [facility] ([facility]) [address] [facility], [place], [address], 03/04/2022 03:06:29 03/01/20 22 03/02/2022 CMP14 +EGFR ALT (SGPT) 11 IU/L 0-32 Not Available [facility] ([facility]) [address] [facility], [place], [address], 03/04/2022 03:06:29 04/25/20 23 04/25/2023 US, abdom en No observ ation record ed. [email or web address] [facility] [address], [place], [address], 10/01/2023 17:00:18 06/06/20 23 06/06/2023 MAMMO , jessee powell, bilat eral No observ ation record ed. [email or web address] Not Available 2023 17:00:19 Result Notes None recorded. Problems Name Problem SNOMED Code Status Onset Date Resolution Date Notes Provider Name and Address Organization Details Recorded Time Blood chemistry outside reference range 158306064 Active Not Available [facility] 18:02:21 Problem Notes None recorded. Procedures Surgical History Date Name Laterality Status Provider Name and Address Organization Details Recorded Time [place] Teeth completed Not Available [facility] 11/28/2022 18:01:25 Imaging Results None recorded. Procedure Notes None recorded. Medical Equipment None [...] 2cc (80mg) injectio n IM 03/31 completed [facility]: [id number]- Not Available Not Available Not Available Vitals Date Recorded Body mass index (BMI) Body height Oxygen saturation Oxygen saturation in Arterial blood by Pulse oximetry Heart rate Body temperature Body weight Systolic And Diastolic Provider Name and Address Organization Details Last Updated DateTime 22.7 kg/m2 177.8 cm 99 % 99 % 79 /min 97.8 [degF] 37215.6 7 g 110/60 mm[Hg] Not Available [facility] 3 18:01:51 Date Recorded Body mass index (BMI) Body height Oxygen saturation Oxygen saturation in Arterial blood by Pulse oximetry Heart rate Respiratory rate Body temperature Body weight Systolic And Diastolic Provider Name and Address Organization Details Last Updated DateTime 2 21.1 kg/m2 177.8 cm 99 % 99 % 74 /min 16 /min 97.8 [degF] 77646.3 6 g 120/72 mm[Hg] Not Available [facility] 3 18:01:51 Date Recorded Body weight Body mass index (BMI) Body height Body temperature Heart rate Oxygen saturation Oxygen saturation in Arterial blood by Pulse oximetry Systolic And Diastolic Provider Name and Address Organization Details Last Updated DateTime 3 66710.1 5 g 20.2 kg/m2 175.26 cm 97.5 [degF] 73 /min 98 % 98 % 118/62 mm[Hg] Lacy Harvey RN [place] - [facility] [employer] 3 10:00:10 Social History Question Answer Notes LastModified by [employer] ion Details LastModified Time Tobacco Smoking Status Never Smoker Not Available [facility] 11/28/2022 18:01:19 What Is Your Level Of Caffeine Consumption? Moderate [id number] Information not available 11/28/2022 How Much Tobacco Do You Chew? None [id number] Information not available 11/28/2022 In The 14 Days Before Symptom Onset, Have You Had Close Contact With A Laboratory-confirm ed COVID-19 While That Case Was Ill? No [id number] Information not available 11/28/2022 In The 14 Days Before Symptom Onset, Have You Had Close Contact With A Person Who Is Under Investigation For COVID-19 While That Person Was Ill? No [id number] Information not available 11/28/2022 What Type Of Diet Are You Following? REGULAR [id number].[id number] 7579 Information not available 11/28/2022 Which Illicit Or Recreational Drugs Have You Used? None [id number] Information not available 11/28/2022 Have There Been Any Changes To Your Family Or Social Situation? No [id number] 3500 Information not available 11/28/2022 Are There Any Guns Present In Your Home? No [id number].[id number] 2320 Information not available 11/28/2022 Do You Use Insect Repellent Routinely? No [id number].[id number] 5175 Information not available 11/28/2022 Do You Use Your Seat Belt Or Car Seat Routinely? Yes [id number].[id number] 4580 Information not available 11/28/2022 Do You Have Smoke And Carbon Monoxide Detectors In Your Home? Yes [id number].[id number] 6409 Information not available 11/28/2022 How Much Tobacco Do You Smoke? No MIGRATION.[id number] 8912 Information not available 11/28/2022 Do You Use Sunscreen Routinely? Yes [id number].[id number] 8428 Information not available 11/28/2022 How Many Years Have You Smoked Tobacco? 0 [id number].[id number] 9892 Information not available 11/28/2022 Have You Recently Traveled Abroad? No MIGRATION.545005 6388 Information not available 11/28/2022 Do You Have Any Dietary Restrictions? No MIGRATION.857621 5722 Information not available 11/28/2022 Sex: Unknown Functional Status Question Answer Note LastModified by Organizat ion Details LastModified Time Do you use any illicit or recreational drugs? No [id number].[id number] 2635 Information not available 11/28/2022 Do you or have you ever used any other forms of tobacco or nicotine? No MIGRATION.[id number] 7715 Information not available 11/28/2022 What is your level of alcohol consumption? Moderate MIGRATION.159001 0855 Information not available 11/28/2022 Do you or have you ever used smokeless tobacco? Never used smokeless tobacco MIGRATION.[id number] 5612 Information not available 11/28/2022 Are you currently employed? No [email or web address] Information not available 04/19/2023 What is your occupation? [employer] [id number] Information not available 11/28/2022 Do you or have you ever used e-cigarettes or vape? Never used electronic cigarettes [id number] Information not available 11/28/2022 What is your exercise level? Moderate [id number] Information not available 11/28/2022 Mental Status None recorded. Family History Relationship Description Onset Age of this Age Resolved Age Notes LastModified by Organization Details LastModified Time Maternal Grandfather Malignant neoplasm of lung [id number] Not available 11/28/2022 18:01:25 Father No current problems or disability [id number] Not available 11/28/2022 18:01:25 Mother No current problems or disability [id number] Not available 11/28/2022 18:01:26 Medical History No [...] ICD10 Code Diagnosis IMO Codes Diagnosis Note [id number] ELISHA Mccallum [facility] Internal [facility] [place] [address] [place] [address] 03/31/2021 00:00:00 04/16/2021 00:27:22 [id number] Dale Silva MD [facility] Internal [facility] [place] [address] [place] [address] 04/18/2022 00:00:00 04/18/2022 09:59:07 [id number] ELISHA Mccallum [facility] Internal [facility] [place] [address] [place] [address] 04/22/2023 09:53:19 04/22/2023 10:20:40 Adult health examination 936406101 Z00.00 well exam completed. labs ordered. Screening mammography 24 435370 Z12.31 mammogram ordered Cholesterol screening 27 2370719 Z13.220 fasting labs due. Diabetes m ellitus screening 993940399 Z13.1 Long-term drug therapy [id number] Z79.899 Family his tory of malignant neoplasm of pancreas 471869305 Z80.0 fam hx of pancreatic cancer in her Mother's identical twin ( her aunt). Preventive procedure 169 951309 Z29.9 Rx for zofran for upcoming trip this winter to [place]. Health Concerns Section Related Observation LastModified by Organization Detai ls LastModified Time None Recorded Concern Status LastModified by Organization Details LastModified Time None Recorded Advance Directives Directive None Recorded Payers Insurance Date Sequence Insurance Name Policy Number Policy Peña Covered Member ID Peña Member ID Guarantor Name 04/19/2023 1 [facility] [id number] Mohamud Sue [id number] Pam Sue Notes Date Note Type Note Provider Name and Address Organization Details Recorded Time 04/22/2023 text/html Generic HPI TemplateReported by Patientno c/o. feeling great, working out, eating healthy, due for labs. wellness ELISHA Mccallum [address], [place], [address], [facility] 04/22/2023 21:39:42 OBGyn Episode No OBEpisode recorded.
--- OUTSIDE RECORDS SUMMARY | 2025-07-26 16:17 | XMS_ITS | Clinical Summary ---
Author Organization [facility] Address [address] [place] [address] Care Team Providers Care Contract Post Office Clerk Name Role Phone John Jansen MD Primary Care Provider [phone] Source Comments [facility],non-owned Affiliates and Associated Physician Practices is amultiple site organization consisting of ambulatory clinics and hospital sitesin [place], [place], [place] and [place]. This disclosure is being madepursuant to the Care Everywhere program and may not contain all information available regarding this patient. Last updated 18.[facility] Allergies No known active allergies Medications * Be aware that medications may not be up to date on this document. Alwaysverify current medications with the patient. levonorgestrel (MIRENA) 20 MCG/24HR IUD 1 Device by Intrauterine route as directed. Active Cetirizine-Pseu doephedrine (ZYRTEC-D ALLERGY & CONGESTION PO) Take by mouth. Active naproxen (NAPROSYN) 500 MG tablet Take 1 Tab by mouth 2 times daily as needed for Pain. 20 Tab 0 4 Active Social History Tobacco Use Types Packs/Day Years Used Date Smoking Tobacco: Never Smokeless Tobacco: Never Alcohol Use Standard Drinks/Week Comments Yes 0 (1 standard drink = 0.6 oz pur e alcohol) socially Comments Unknown Sex and Gender Information Value Date Recorded Sex Assigned at Not on file Legal Sex Female 9:34 PM REMODELER Gender Identity Not on file Sexual Orientation Not on file Last Filed Vital Signs Vital Sign Reading Time Taken Comments Blood Pressure 102/62 09/21/2014 2:05 AM REMODELER Pulse 78 09/21/2014 2:05 AM REMODELER Temperature 37 C (98.6 F) 09/21/2014 2:05 AM REMODELER Respiratory Rate 16 09/21/2014 2:05 AM REMODELER Oxygen Saturation 99% 09/21/2014 2:05 AM REMODELER Inhaled Oxygen Concentration - - Weight 63.5 kg (140 lb) 09/20/2014 9:51 PM REMODELER Height 177.8 cm (5' 10) 09/20/2014 9:51 PM REMODELER Body Mass Index 20.09 09/20/2014 9:51 PM REMODELER Plan of Treatment Health Maintenance Due Date Last Done Comments COLOGUARD (AGES 45-75) - COL ON CA SCREENING 1979 COLON MONITORING 1979 COLONOSCOPY - COLON CA SCREENING 1979 CT COLONOGRAPHY - COLON CA SCREENING 1979 Colorectal Cancer Screening 1979 FIT - COLON CA SCREENING 1979 FLEX SIG - COLON CA SCREENING 1979 LIPID TESTING 1979 MAMMOGRAM 1979 HIV SCREENING 1994 HEPATITIS C SCREENING 12/29/1996 DTAP/TDAP/TD VACCINES (1 - Tdap) 1998 HEPATITIS B VACCINE (1 of 3 - 19+ 3-dose series) 1998 DEPRESSION SCREENING 09/30/2024 COVID-19 VACCINE (1 - 2023-2 5 season) 2025 INFLUENZA VACCINE (#1) 2025 ZOSTER VACCINE (1 of 2) 2029 HIB VACCINE Aged Out No longer eligi ble based on patient's age to complete this topic HPV VACCINE Aged Out No longer eligi ble based on patient's age to complete this topic MENINGOCOCCAL (Group B) VACC INE SHARED DECISION-MAKING Aged Out No longer eligibl e based on patient's age to complete this topic MENINGOCOCCAL GROUPS A/C/Y/W VACCINE Aged Out No longer eligible b ased on patient's age to complete this topic PNEUMOCOCCAL VACCINE Aged Out No long er eligible based on patient's age to complete this topic Insurance ANTH Care Teams Contract Post Office Clerk Relationship Specialty Start Date End Date John Jansen MD [address] [place] [address] PCP - General Family Medicine 09/20/14
--- OUTSIDE RECORDS SUMMARY | 2025-07-26 16:17 | XMS_ITS | Clinical Summary ---
Author Organization [facility]22 Address [address] [facility] 3[address] [place] [address] Phone Care Team Providers Care Data Solutions Architect Name Role Phone John Jansen MD Primary Care Provider [phone] Allergies No known active allergies Medications spironolactone (ALDACTONE) 100 mg tablet Take 100 mg by mouth daily. Active Active Problems No known active problems Encounters Date Type Department Care Team Description 07/23/2025 Telephone [facility] Oncology and Hematology - [address] [place] [id number] Kwaku Sidhu MD labs for appt 07/21/2025 External Device Data [facility] ABSTRACTION Provider, Abstract 07/20/2025 External Device Data [facility]STRACTION Provider, Abstract 06/15/2025 External Device Data [facility]STRACTION Provider, Abstract 05/04/2025 External Device Data [facility] ABSTRACTION Provider, Abstract from Last 3 Months Family History Medical [...] on file Legal Sex Female 6:10 AM HVAC R TECH Gender Identity Not on file Sexual Orientation Not on file Last Filed Vital Signs Vital Sign Reading Time Taken Comments Blood Pressure 100/61 11/23/2024 10:10 AM HVAC R TECH Pulse 79 11/23/2024 10:10 AM HVAC R TECH Temperature 36.6 C (97.9 F) 11/23/2024 10:10 AM HVAC R TECH Respiratory Rate 17 11/23/2024 10:1 0 AM HVAC R TECH Oxygen Saturation 98% 11/23/2024 10: 10 AM HVAC R TECH Inhaled Oxygen Concentration - - Weight 66.6 kg (146 lb 12.8 oz) 025 10:10 AM HVAC R TECH Height 177.8 cm (5' 10) 11/23/2024 10: 10 AM HVAC R TECH Body Mass Index 21.06 11/23/2024 10:10 AM HVAC R TECH Plan of Treatment Upcoming Encounters Date Type Department Care Team (Late st Contact Info) Description 07/27/2025 2:45 PM CDT Office Visit [facility] Oncology and Hematology [facility] [address] [address] [place] [address] Kwaku Sidhu MD [address] [facility] [place] [address] Health Maintenance Due Date Last Done Comments DTAP/TDAP/TD VACCINES (1 - Tdap) 1998 HEPATITIS B VACCINES (1 of 3 - 19+ 3-dose series) 1998 HPV/Cotest (21-29) 01/04/2000 CERVICAL CANCER SCREENING 2009 HPV/Cotest (30-65) 2009 PAP SMEAR 2009 BREAST CANCER SCREENING 2019 COLORECTAL SCREENING 01/04/2024 Colorectal Cancer Screening 01/04/2024 FIT-DNA Q 3 years 01/04/2024 FIT/FOBT Q 1 year 01/04/2024 Flex Sig/CT Colonography Q 5 years 01/04/2024 Preventative Visit- Commercial 09/30/2024 04/22/2023 INFLUENZA VACCINE (#1) 2025 HPV VACCINES Aged Out No longer eligi ble based on patient's age to complete this topic Insurance [facility] [id number] Member Subscriber Plan / Payer (Ef fective 2022-Present) Name:[id number] Relation to Subscriber:Spouse Name:Mohamud Sue Date of :1976 (Home) [phone] (Work) Address: [address] [place] [id number] Payer ID:[id number] (NAIC) Type:O Address: [facility] [id number] [place] [address] [address] [address] Care Teams Data Solutions Architect Relationship Specialty Start Date End Date John Jansen MD [address] [place] [id number] PCP - General Family Practice 05/09/12
[2025-07-26 17:44] LABS: Vitamin B12 338.0 pg/mL (239-931)
[2025-07-26 17:59] LABS: Iron 116 ug/dL (37-170)
[2025-07-26 18:09] LABS: Percent Iron Saturation 44 % (20-50)
[2025-07-26 18:35] LABS: Ferritin 57.50 ng/mL (6.24-137)
== END 2025-07-26 14:35 | disposition home or self-care (01) ==
LOC: ANHLAB 14:35
PROVIDERS: Visit Provider Internal Medicine Hematology & Oncology
DX: D64.9 Anemia, unspecified (principal)
CPT/HCPCS: 36415; 82607; 82728; 82746; 83540; 83550; 85025

== ENCOUNTER 2025-09-09 14:23 | Outpatient (CLI) | payer OTHER, SELFPAY ==
--- NOTE | ~2025-09-09 | XR_ITS ---
EXAMINATION: XR shoulder RT min 2V, 09/09/2025 14:30 HIDE PASTER HISTORY: unresolved shoulder pain > 6 weeks, pain x 2 months COMPARISON: No comparisons available. Findings: No acute fracture or malalignment. No significant degenerative changes. Soft tissues unremarkable. Impression: No acute fracture or malalignment. Reviewed, dictated and finalized at location P. PASTER Impression: No acute fracture or malalignment.
== END 2025-09-09 14:24 | disposition home or self-care (01) ==
PROVIDERS: PCP Chiropractor; Visit Provider Chiropractor
DX: M25.511 Pain in right shoulder (principal)
CPT/HCPCS: 73030